=== PATIENT | male | born 1940 | race African-American/Black ===

== ENCOUNTER 2017-03-19 13:20 | Inpatient (IN) | payer OTHER ==
[2017-03-19 15:04] VITALS: BMI 25.9
--- NOTE | 2017-03-19 20:25 | HP ---
COWS - Scale Resting Pulse: 0= [place] 80 or Below Sweatin= Chills/Flushing Restless Observation: 3= Extraneous Movement Pupil Size: 0= Normal to Room Light Bone or Joint Aches: 2= Severe Diffuse Aches Runny Nose/ Eye Tearin= Runny Nose/Eyes GI Upset > 30mins: 2= Nausea/Diarrhea Tremor Observation: 2= Slight Tremor Visible Yawning Observation: 0= None Anxiety or Irritability: 2=Irritable/Anxious Goose Flesh Skin: 0=Smooth Skin COWS Score: 14 Admission [facility] Chief Complaint: WITHDRAWAL SX Allergies/Adverse Reactions: Allergies Allergy/AdvReac Type Severity Reaction Status Date / Time No Known Allergies Allergy Verified 03/19/17 19:17 History of Present Illness: 76 YEARS OLD MALE WITH 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 HAS HYPERTENSION AND NASAL CONGESTION DENIES MENTAL ILLNESS IS ADMITTED TO DETOX Exam Limitations: No Limitations - Ebola screening Have you traveled outside of the country in the last 21 days: No Have you had contact with anyone from an Ebola affected area: No Have you been sick,other than usual withdrawal symptoms: No Do you have a fever: No - Review of Systems Constitutional: Chills, Changes in sleep, Weight Stable EENT: reports: Nose Congestion Respiratory: reports: SOB with Exertion, Productive cough (WHITE) Cardiac: reports: No Symptoms Reported GI: reports: Nausea, Poor Fluid Intake, Abdominal cramping : reports: No Symptoms Reported Musculoskeletal: reports: Back Pain, Joint Pain, Muscle Pain, Neck Pain Integumentary: reports: No Symptoms Reported Neuro: reports: Tremors Endocrine: reports: No Symptoms Reported Hematology: reports: No Symptoms Reported Psychiatric: reports: Judgement Intact, Mood/Affect Appropiate, Orientated x3 Other Systems: Reviewed and Negative Patient History - Patient Medical History Hx Anemia: No Hx Asthma: No Hx Chronic Obstructive Pulmonary Disease (COPD): Yes Hx Cancer: No Hx Cardiac Disorders: No Hx Congestive Heart Failure: No Hx Hypertension: Yes Hx Hypercholesterolemia: No Hx Pacemaker: No HX Cerebrovascular Accident: No Hx Seizures: No Hx Dementia: No Hx Diabetes: No Hx Gastrointestinal Disorders: No Hx Liver Disease: No Hx Genitourinary Disorders: No Hx Sexually Transmitted Disorders: No Hx Renal Disease (ESRD): No Hx Thyroid Disease: No Hx Human Immunodeficiency Virus (HIV): No (NEGATIVE HX) Hx Hepatitis C: No Hx Depression: No Hx Suicide Attempt: No Hx Bipolar Disorder: No Hx Schizophrenia: No - Patient Surgical History Past Surgical History: Yes Hx Neurologic Surgery: No Hx Cataract Extraction: No Hx Cardiac Surgery: No Hx Lung Surgery: Yes (pneumothorax about 2004) Hx Breast Surgery: No Hx Breast Biopsy: No Hx Abdominal Surgery: No Hx Appendectomy: No Hx Cholecystectomy: No Hx Genitourinary Surgery: No Hx Orthopedic Surgery: No Anesthesia Reaction: No - PPD History Previous Implant?: Yes Documented Results: Positive w/o proof Implanted On Prior [facility] Admission?: No Results: positive PPD to be Administered?: No - Smoking Cessation Smoking history: Former smoker Have you smoked in the past 12 months: No Aproximately how many cigarettes per day: 0 Cigars Per Day: 0 Hx Chewing Tobacco Use: No Initiated information on smoking cessation: No - Substance & Tx. History Hx Alcohol Use: No Hx Substance Use: Yes Substance Use Type: Cocaine, Heroin, Marijuana Hx Substance Use Treatment: Yes (08/30-09/03/16 [facility]) - Substances Abused Heroin Route: Inhalation Frequency: Daily Amount used: 4 bags Age of first use: 20 Date of Last Use: 03/19/17 Family Disease History - Family Disease History Family Disease History: Diabetes: Son, Heart Disease: Father (), Mother () Admission Physical Exam S - Vital Signs Vital Signs: Vital Signs - 24 hr 03/19/17 14:54 Temperature 97.9 F Pulse Rate 75 Respiratory 18 Rate Blood Pressure 151/90 - Physical General Appearance: Yes: Nourished, Appropriately Dressed, Mild Distress, Tremorous, Irritable, Sweating, Anxious HEENTM: Yes: Hearing grossly Normal, Normal ENT Inspection, Normocephalic, Normal Voice Respiratory: Yes: Chest Non-Tender, No Respiratory Distress, No Accessory Muscle Use, Hyperresonant, Inspiration Neck: Yes: Supple, Trachea in good position Breast: Yes: Breasts Symetrical Cardiology: Yes: Regular Rhythm, Regular Rate, S1, S2 Abdominal: Yes: Non Tender, Soft Genitourinary: Yes: Within Normal Limits Back: Yes: Normal Inspection Musculoskeletal: Yes: full range of Motion, Gait Steady, Back pain, Muscle Pain Extremities: Yes: Normal Inspection, Normal Range of Motion, Non-Tender, Tremors Neurological: Yes: Fully Oriented, Alert, Motor Strength 5/5, Normal Mood/Affect , Normal Response Integumentary: Yes: Warm Lymphatic: Yes: Within Normal Limits - Diagnostic (1) Opioid dependence with withdrawal Current Visit: Yes Status: Acute (2) COPD (chronic obstructive pulmonary disease) with emphysema Current Visit: Yes Status: Chronic Qualifiers: Emphysema type: unspecified Qualified Code(s): J43.9 - Emphysema, unspecified (3) HTN (hypertension) Current Visit: Yes Status: Chronic Qualifiers: Hypertension type: essential hypertension (4) Cocaine dependence, uncomplicated Current Visit: Yes Status: Chronic (5) Cannabis dependence, uncomplicated Current Visit: Yes Status: Chronic (6) Nasal congestion Current Visit: Yes Status: Chronic (7) Positive PPD, treated Current Visit: Yes Status: Resolved Cleared for Admission [facility] - Detox or Rehab [facility] Level of Care: Medically Managed Detox Regimen/Protocol: Methadone [facility] Breath Alcohol Content Breath Alcohol Content: 0 Urine Drug Screen - Results Drug Screen Negative: No Urine Drug Screen Results: THC-Marijuana, PAT-Cocaine, OPI-Opiates
[2017-03-19] MEDS ORDERED: MAG HYDROX/AL HYDROX/SIMETH 30 ML UNIT-DOSE CUP PO PRN (20:31)
[2017-03-19] MEDS ORDERED: ACETAMINOPHEN 325 MG TABLET (FP) PO PRN (20:31)
[2017-03-19] MEDS ORDERED: METHADONE HCL 10 MG TABLET (FOR DETOX USE ONLY) PO ONE ×2 (20:31→23:00)
[2017-03-19] MEDS ORDERED: guaiFENesin/D-METHORPHAN HB 10 ML UNIT-DOSE CUPS PO PRN (20:31)
[2017-03-19] MEDS ORDERED: P-EPHED 60MG/TRIPROLIDI 2.5MG TABLET PO PRN (20:31)
[2017-03-19] MEDS ORDERED: MAGNESIUM HYDROX 2400MG/30ML ORAL SUSPENSION 30 ML CUP PO PRN (20:31)
[2017-03-19] MEDS ORDERED: MAGNESIUM CITRATE 300 ML BOTTLE PO PRN (20:31)
[2017-03-19] MEDS ORDERED: LOPERAMIDE HCL 2 MG CAPSULE PO PRN (20:31)
[2017-03-19] MEDS ORDERED: MENTHOL/PHENOL 1 EACH UD MM PRN (20:31)
[2017-03-19] MEDS ORDERED: ALBUTEROL SO4 6.7 GM HFA INHALER IH PRN (20:34)
[2017-03-19] MEDS: diazePAM 5 MG TABLET PO PRN (21:44)
[2017-03-19] MEDS: THIAMINE HCL 100 MG TABLET (FP) PO SCH (21:45)
[2017-03-20] MEDS: diphenhydrAMINE HCL 50 MG CAPSULE PO PRN ×2 (00:03→22:31)
[2017-03-20 00:12] LABS: URINE APPEARANCE CLEAR; URINE BILIRUBIN NEGATIVE (NEGATIVE); URINE BLOOD NEGATIVE (NEGATIVE); URINE COLOR YELLOW; URINE GLUCOSE (UA) NEGATIVE (NEGATIVE); URINE KETONE TRACE (NEGATIVE); URINE LEUK ESTERASE NEGATIVE (NEGATIVE); URINE NITRITE NEGATIVE (NEGATIVE); URINE PROTEIN NEGATIVE (NEGATIVE); URINE UROBILINOGEN NEGATIVE E.U./dl (0.2-1.0)
[2017-03-20] MEDS: SODIUM CHLORIDE NASAL SPRAY 44 ML BOTTLE NS SCH ×3 (05:50→22:28)
--- NOTE | 2017-03-20 09:59 | EKG ---
Test Reason : Blood Pressure : / mmHG Vent. Rate : 063 BPM Atrial Rate : 063 BPM P-R Int : 178 ms QRS Dur : 084 ms QT Int : 366 ms P-R-T Axes : 079 070 061 degrees QTc Int : 374 ms NORMAL SINUS RHYTHM RIGHT ATRIAL ENLARGEMENT EARLY REPOLARIZATION NO PREVIOUS ECGS AVAILABLE Confirmed by MARTHA SANDOVAL MD ([id number]) on 03/20/2017 9:58:58 AM Referred By: Confirmed By:MARTHA SANDOVAL MD
[2017-03-20] MEDS ORDERED: METHADONE HCL 10 MG TABLET (FOR DETOX USE ONLY) PO ONE (10:00)
[2017-03-20 10:12] LABS: MCH 33.7 pg (25.7-33.7); MCHC 33.4 g/dl (32.0-35.9); MEAN CELL VOLUME 100.7 fl (80-96); MEAN PLT VOLUME 9.5 fl (7.5-11.1); PLATELET COUNT 208 K/MM3 (134-434); RDW 13.3 % (11.9-15.9); WHITE BLOOD COUNT 3.9 K/mm3 (4.0-10.0)
--- NOTE | 2017-03-20 10:31 | PN ---
BHS COWS - Scale Resting Pulse: 0= [place] 80 or Below Sweatin=Flushed/Facial Moisture Restless Observation: 1= Difficult to Sit Still Pupil Size: 0= Normal to Room Light Bone or Joint Aches: 1= Mild Discomfort Runny Nose/ Eye Tearin= Runny Nose/Eyes GI Upset > 30mins: 2= Nausea/Diarrhea Tremor Observation of Outstretched Hands: 2= Slight Tremor Visible Yawning Observation: 1= 1-2x During Session Anxiety or Irritability: 2=Irritable/Anxious Goose Flesh Skin: 0=Smooth Skin COWS Score: 13 BHS Progress Note (SOAP) Subjective: Anxiety,tremors,sweating,interrupted sleep,restless Objective: 03/20/17 10:30 Vital Signs - 8 hr 03/20/17 03/20/17 03/20/17 03:30 06:15 10:00 Temperature 97.7 F 97.0 F L Pulse Rate 56 L 61 Respiratory 18 18 16 Rate Blood Pressure 128/74 146/69 Laboratory Last Values WBC 3.9 K/mm3 (4.0-10.0) L 03/20/17 06:10 RBC 4.14 M/mm3 (4.00-5.60) 03/20/17 06:10 Hgb 13.9 GM/dL (11.7-16.9) 03/20/17 06:10 Hct 41.6 % (35.4-49) 03/20/17 06:10 MCV 100.7 fl (80-96) H 03/20/17 06:10 MCHC 33.4 g/dl (32.0-35.9) 03/20/17 06:10 RDW 13.3 % (11.9-15.9) 03/20/17 06:10 Plt Count 208 K/MM3 (134-434) 03/20/17 06:10 MPV 9.5 fl (7.5-11.1) 03/20/17 06:10 Urine Color Yellow 03/19/17 21:28 Urine Appearance Clear 03/19/17 21:28 Urine pH 5.0 (5.0-8.0) 03/19/17 21:28 Urine Protein Negative (NEGATIVE) 03/19/17 21:28 Urine Glucose (UA) Negative (NEGATIVE) 03/19/17 21:28 Urine Ketones Trace (NEGATIVE) H 03/19/17 21:28 Urine Blood Negative (NEGATIVE) 03/19/17 21:28 Urine Nitrite Negative (NEGATIVE) 03/19/17 21:28 Urine Bilirubin Negative (NEGATIVE) 03/19/17 21:28 Urine Urobilinogen Negative E.U./dl (0.2-1.0) 03/19/17 21:28 Ur Leukocyte Esterase Negative (NEGATIVE) 03/19/17 21:28 labs noted Assessment: 03/20/17 10:31 Withdrawal sx. Plan: Continue detox
[2017-03-20] MEDS: ASPIRIN 81 MG CHEWABLE TABLETS PO SCH (10:41)
[2017-03-20] MEDS: ENALAPRIL MALEATE 10 MG TABLET (FP) PO SCH (10:41)
[2017-03-20] MEDS: PRENATAL VITAMINS W/ FOLIC ACID TABLET (FP) PO SCH (10:41)
[2017-03-20] MEDS: NIFEdipine E.R 60 MG TABLET (UD) PO SCH (10:42)
[2017-03-20] MEDS: diazePAM 5 MG TABLET PO PRN (10:45)
[2017-03-20 10:46] LABS: ALBUMIN 4.1 g/dl (3.4-5.0); ANION GAP 9 (8-16); CALCIUM 9.3 mg/dL (8.5-10.1); CO2 29 mmol/L (21-32); GLUCOSE,RANDOM 99 mg/dL (74-106)
[2017-03-20 10:50] LABS: ALK PHOS 91 U/L (45-117); BILIRUBIN,TOTAL 0.8 mg/dL (0.2-1.0); CREATININE 1.1 mg/dL (0.7-1.3); SGOT/AST 30 U/L (15-37); SGPT/ALT 27 U/L (12-78); TOT PROT 7.5 g/dl (6.4-8.2)
[2017-03-20] MEDS: THIAMINE HCL 100 MG TABLET (FP) PO SCH (22:29)
[2017-03-21] MEDS ORDERED: METHADONE HCL 5 MG TABLET (FOR DETOX USE ONLY) PO ONE (10:00)
[2017-03-21] MEDS: ASPIRIN 81 MG CHEWABLE TABLETS PO SCH (10:17)
[2017-03-21] MEDS: NIFEdipine E.R 60 MG TABLET (UD) PO SCH (10:17)
[2017-03-21] MEDS: PRENATAL VITAMINS W/ FOLIC ACID TABLET (FP) PO SCH (10:17)
[2017-03-21] MEDS: ENALAPRIL MALEATE 10 MG TABLET (FP) PO SCH (10:17)
--- NOTE | 2017-03-21 11:57 | PN ---
S COWS - Scale Resting Pulse: 0= [place] 80 or Below Sweatin= Chills/Flushing Restless Observation: 1= Difficult to Sit Still Pupil Size: 0= Normal to Room Light Bone or Joint Aches: 1= Mild Discomfort Runny Nose/ Eye Tearin= Runny Nose/Eyes GI Upset > 30mins: 1= Stomach Cramp Tremor Observation of Outstretched Hands: 2= Slight Tremor Visible Yawning Observation: 1= 1-2x During Session Anxiety or Irritability: 2=Irritable/Anxious Goose Flesh Skin: 0=Smooth Skin COWS Score: 11 S Progress Note (SOAP) Subjective: Nasal congestion, running nose, anxiety, mild tremor sweating body aches. Objective: 03/21/17 11:57 Vital Signs 03/21/17 03/21/17 06:37 10:00 Temperature 97.0 F L 97.5 F L Pulse Rate 55 L 71 Respiratory 18 16 Rate Blood Pressure 128/67 150/70 Laboratory Results - last 24 hr 03/20/17 06:10 RPR Titer Nonreactive Laboratory Last Values WBC 3.9 K/mm3 (4.0-10.0) L 03/20/17 06:10 RBC 4.14 M/mm3 (4.00-5.60) 03/20/17 06:10 Hgb 13.9 GM/dL (11.7-16.9) 03/20/17 06:10 Hct 41.6 % (35.4-49) 03/20/17 06:10 MCV 100.7 fl (80-96) H 03/20/17 06:10 MCHC 33.4 g/dl (32.0-35.9) 03/20/17 06:10 RDW 13.3 % (11.9-15.9) 03/20/17 06:10 Plt Count 208 K/MM3 (134-434) 03/20/17 06:10 MPV 9.5 fl (7.5-11.1) 03/20/17 06:10 Sodium 139 mmol/L (136-145) 03/20/17 06:10 Potassium 4.5 mmol/L (3.5-5.1) 03/20/17 06:10 Chloride 101 mmol/L (98-107) 03/20/17 06:10 Carbon Dioxide 29 mmol/L (21-32) 03/20/17 06:10 Anion Gap 9 (8-16) 03/20/17 06:10 BUN 26 mg/dL (7-18) H 03/20/17 06:10 Creatinine 1.1 mg/dL (0.7-1.3) 03/20/17 06:10 Creat Clearance w eGFR > 60 (>60) 03/20/17 06:10 Random Glucose 99 mg/dL (74-106) 03/20/17 06:10 Calcium 9.3 mg/dL (8.5-10.1) 03/20/17 06:10 Total Bilirubin 0.8 mg/dL (0.2-1.0) D 03/20/17 06:10 AST 30 U/L (15-37) D 03/20/17 06:10 ALT 27 U/L (12-78) D 03/20/17 06:10 Alkaline Phosphatase 91 U/L (45-117) 03/20/17 06:10 Total Protein 7.5 g/dl (6.4-8.2) 03/20/17 06:10 Albumin 4.1 g/dl (3.4-5.0) 03/20/17 06:10 Urine Color Yellow 03/19/17 21:28 Urine Appearance Clear 03/19/17 21:28 Urine pH 5.0 (5.0-8.0) 03/19/17 21:28 Ur Specific [place] > 1.030 (1.005-1.025) H 03/19/17 21:28 Urine Protein Negative (NEGATIVE) 03/19/17 21:28 Urine Glucose (UA) Negative (NEGATIVE) 03/19/17 21:28 Urine Ketones Trace (NEGATIVE) H 03/19/17 21:28 Urine Blood Negative (NEGATIVE) 03/19/17 21:28 Urine Nitrite Negative (NEGATIVE) 03/19/17 21:28 Urine Bilirubin Negative (NEGATIVE) 03/19/17 21:28 Urine Urobilinogen Negative E.U./dl (0.2-1.0) 03/19/17 21:28 Ur Leukocyte Esterase Negative (NEGATIVE) 03/19/17 21:28 RPR Titer Nonreactive (NONREACTIVE) 03/20/17 06:10 labs noted Assessment: 03/21/17 11:58 Withdrawal sx Plan: Continue detox
[2017-03-21] MEDS: SODIUM CHLORIDE NASAL SPRAY 44 ML BOTTLE NS SCH ×2 (14:05→22:47)
[2017-03-21] MEDS: diphenhydrAMINE HCL 50 MG CAPSULE PO PRN (22:48)
[2017-03-21] MEDS: diazePAM 5 MG TABLET PO PRN (22:48)
[2017-03-21] MEDS: THIAMINE HCL 100 MG TABLET (FP) PO SCH (22:48)
[2017-03-22] MEDS: SODIUM CHLORIDE NASAL SPRAY 44 ML BOTTLE NS SCH ×3 (06:47→22:12)
[2017-03-22] MEDS ORDERED: METHADONE HCL 5 MG TABLET (FOR DETOX USE ONLY) PO ONE (10:00)
--- NOTE | 2017-03-22 10:27 | PN ---
BHS Progress Note (SOAP) Subjective: ALERT,IRRITABLE,ANXIOUS,INTERRUPTED SLEEP,TREMOR Objective: 03/22/17 10:27 Vital Signs Temperature 96.4 F L 03/22/17 06:00 Pulse Rate 56 L 03/22/17 06:00 Respiratory Rate 18 03/22/17 06:00 Blood Pressure 135/67 03/22/17 06:00 O2 Sat by Pulse Oximetry (%) Assessment: 03/22/17 10:27 WITHDRAWAL SYMPTOM Plan: CONTINUE DETOX
[2017-03-22] MEDS: NIFEdipine E.R 60 MG TABLET (UD) PO SCH (11:00)
[2017-03-22] MEDS: ENALAPRIL MALEATE 10 MG TABLET (FP) PO SCH (11:00)
[2017-03-22] MEDS: ASPIRIN 81 MG CHEWABLE TABLETS PO SCH (11:01)
[2017-03-22] MEDS: PRENATAL VITAMINS W/ FOLIC ACID TABLET (FP) PO SCH (11:01)
[2017-03-22] MEDS: diphenhydrAMINE HCL 50 MG CAPSULE PO PRN (22:11)
[2017-03-22] MEDS: THIAMINE HCL 100 MG TABLET (FP) PO SCH (22:11)
[2017-03-23] MEDS: SODIUM CHLORIDE NASAL SPRAY 44 ML BOTTLE NS SCH ×4 (05:30→22:22)
[2017-03-23] MEDS ORDERED: METHADONE HCL 10 MG TABLET (FOR DETOX USE ONLY) PO ONE (10:00)
[2017-03-23] MEDS: ENALAPRIL MALEATE 10 MG TABLET (FP) PO SCH (10:12)
[2017-03-23] MEDS: ASPIRIN 81 MG CHEWABLE TABLETS PO SCH (10:12)
[2017-03-23] MEDS: PRENATAL VITAMINS W/ FOLIC ACID TABLET (FP) PO SCH (10:13)
[2017-03-23] MEDS: NIFEdipine E.R 60 MG TABLET (UD) PO SCH (10:13)
--- NOTE | 2017-03-23 11:09 | PN ---
S Progress Note (SOAP) Subjective: ALERT,IRRITABLE,ANXIOUS,INTERRUPTED SLEEP Objective: 03/23/17 11:08 Vital Signs Temperature 97 F L 03/23/17 09:32 Pulse Rate 67 03/23/17 09:32 Respiratory Rate 16 03/23/17 09:32 Blood Pressure 145/71 03/23/17 09:32 O2 Sat by Pulse Oximetry (%) Assessment: 03/23/17 11:09 WITHDRAWAL SYMPTOM Plan: CONTINUE DETOX,DISCHARGE IN AM
[2017-03-23] MEDS: THIAMINE HCL 100 MG TABLET (FP) PO SCH (22:23)
[2017-03-23] MEDS: diphenhydrAMINE HCL 50 MG CAPSULE PO PRN (22:23)
[2017-03-24] MEDS ORDERED: METHADONE HCL 5 MG TABLET (FOR DETOX USE ONLY) PO ONE (06:00)
[2017-03-24] MEDS: SODIUM CHLORIDE NASAL SPRAY 44 ML BOTTLE NS SCH (06:02)
[2017-03-24 06:08] VITALS: TEMP 97.9
--- NOTE | 2017-03-24 08:05 | PN ---
BHS Progress Note (SOAP) Subjective: ALERT.NO COMPLAINT Objective: 03/24/17 08:03 Vital Signs Temperature 97.9 F 03/24/17 06:07 Pulse Rate 70 03/24/17 06:07 Respiratory Rate 18 03/24/17 06:07 Blood Pressure 141/70 03/24/17 06:07 O2 Sat by Pulse Oximetry (%) Assessment: 03/24/17 08:04 DETOX COMPLETED,NO WITHDRAWAL SYMPTOM Plan: DISCHARGE TODAY,FOLLOW UP WITH AFTER CARE PROGRAM ARRANGEMENT
--- NOTE | 2017-03-24 08:07 | DS ---
[facility] Detox Discharge Summary Admission Date: 03/19/17 Discharge Date: 03/24/17 - History Present History: Cannabis Dependence, Cocaine Dependence, Opioid Dependence Additional Comments: FOLLOW UP WITH AFTER CARE PROGRAM ARRANGEMENT AND PMD FOR MEDICAL PROBLEM Pertinent Past History: COPD HYPERTENSION - Physical Exam Results Vital Signs: Vital Signs Temperature 97.9 F 03/24/17 06:07 Pulse Rate 70 03/24/17 06:07 Respiratory Rate 18 03/24/17 06:07 Blood Pressure 141/70 03/24/17 06:07 O2 Sat by Pulse Oximetry (%) Pertinent Admission Physical Exam Findings: WITHDRAWAL SYMPTOM - Treatment Hospital Course: Detox Protocol Followed, Detoxed Safely, Responded well, Discharged Condition Good Patient has Accepted a Rehab Referral to: [facility] - Medication Discharge Medications: Ambulatory Orders Enalapril Maleate [Vasotec] 20 mg PO DAILY #30 tablet 09/18/14 Nifedipine ER [Procardia XL -] 60 mg PO DAILY #60 tab.[id number] 09/18/14 Albuterol Sulfate [Proair Hfa -] 2 inh PO QID PRN 11/20/15 Aspirin [ASA -] 81 mg PO DAILY 11/20/15 Sodium Chloride [Saline Nose [place]] 89 ml NS TID PRN 01/11/16 Petrolatum,White/Lanolin [Vitamin A & D Ointment] 113 gm TP BID 08/25/16 - AMA Did Patient Leave Against Medical Advice: No
[2017-03-24] MEDS: ASPIRIN 81 MG CHEWABLE TABLETS PO SCH (09:15)
[2017-03-24] MEDS: PRENATAL VITAMINS W/ FOLIC ACID TABLET (FP) PO SCH (09:15)
[2017-03-24] MEDS: NIFEdipine E.R 60 MG TABLET (UD) PO SCH (09:16)
[2017-03-24] MEDS: ENALAPRIL MALEATE 10 MG TABLET (FP) PO SCH (09:16)
[2017-03-24 09:41] VITALS: BP 150/71; PULSE 67
== END 2017-03-24 09:20 | disposition home or self-care (01) | DRG 897 ==
LOC: YASAS 13:20 → Y6N 19:29
PROVIDERS: ADMIT Internal Medicine; ATTEND Internal Medicine
PROC: HZ2ZZZZ Detoxification Services for Substance Abuse Treatment (ICD-10-PCS; principal; 2017-03-19)
DX: F11.23 Opioid dependence with withdrawal (principal); F14.20 Cocaine dependence, uncomplicated; F12.20 Cannabis dependence, uncomplicated; I10 Essential (primary) hypertension; J44.9 Chronic obstructive pulmonary disease, unspecified; R76.11 Nonspecific reaction to tuberculin skin test without active tuberculosis; R09.81 Nasal congestion; Z79.82 Long term (current) use of aspirin
CPT/HCPCS: 36415; 80053; 81003; 85027; 86593; 93005; 93010

== ENCOUNTER 2017-06-24 12:37 | Inpatient (IN) | payer OTHER ==
[2017-06-24 15:36] VITALS: BMI 25.1
[2017-06-24] MEDS ORDERED: MAG HYDROX/AL HYDROX/SIMETH 30 ML UNIT-DOSE CUP PO PRN (17:41)
[2017-06-24] MEDS ORDERED: LOPERAMIDE HCL 2 MG CAPSULE PO PRN (17:41)
[2017-06-24] MEDS ORDERED: MAGNESIUM CITRATE 300 ML BOTTLE PO PRN (17:41)
[2017-06-24] MEDS ORDERED: MAGNESIUM HYDROX 2400MG/30ML ORAL SUSPENSION 30 ML CUP PO PRN (17:41)
[2017-06-24] MEDS ORDERED: guaiFENesin/D-METHORPHAN HB 10 ML UNIT-DOSE CUPS PO PRN (17:41)
[2017-06-24] MEDS ORDERED: P-EPHED 60MG/TRIPROLIDI 2.5MG TABLET PO PRN (17:41)
[2017-06-24] MEDS ORDERED: NICOTINE POLACRILEX 2 MG GUM BC PRN (17:41)
[2017-06-24] MEDS ORDERED: hydrOXYzine PAMOATE 50 MG CAPSULE (FP) PO PRN (17:41)
[2017-06-24] MEDS ORDERED: ACETAMINOPHEN 325 MG TABLET (FP) PO PRN (17:41)
[2017-06-24] MEDS ORDERED: MENTHOL/PHENOL 1 EACH UD MM PRN (17:41)
--- NOTE | 2017-06-24 17:41 | HP ---
COWS - Scale Resting Pulse: 1= [place] 81-100 Sweatin= Chills/Flushing Restless Observation: 1= Difficult to Sit Still Pupil Size: 1= Pupils >than Normal Bone or Joint Aches: 1= Mild Discomfort Runny Nose/ Eye Tearin= Nasal Congestion GI Upset > 30mins: 2= Nausea/Diarrhea Tremor Observation: 2= Slight Tremor Visible Yawning Observation: 1= 1-2x During Session Anxiety or Irritability: 2=Irritable/Anxious Goose Flesh Skin: 3=Piloerection COWS Score: 16 Admission [facility] Chief Complaint: heroin withdrawal sx Allergies/Adverse Reactions: Allergies Allergy/AdvReac Type Severity Reaction Status Date / Time No Known Allergies Allergy Verified 03/19/17 19:17 History of Present Illness: 76 yo m with h/o polysubstance use now only using heroin sniffing 3-4 bags daily only , smokes 1PPD PMHX HTN, on meds, no psychiatric no suicide attempts, no suicidal ideation, no sieuzrs, no DTS. feels like lishermaning that is why he is here today. has heorin withdrwal sx when he does not use, not homeless. Exam Limitations: No Limitations - Ebola screening Have you traveled outside of the country in the last 21 days: No Have you had contact with anyone from an Ebola affected area: No Have you been sick,other than usual withdrawal symptoms: No Do you have a fever: No - Review of Systems Constitutional: Chills, Diaphoresis, Loss of Appetite, Malaise, Unintentional Wgt. Loss EENT: reports: Nose Congestion Respiratory: reports: No Symptoms reported Cardiac: reports: No Symptoms Reported GI: reports: Diarrhea, Nausea, Poor Appetite, Poor Fluid Intake, Abdominal cramping : reports: No Symptoms Reported Musculoskeletal: reports: Back Pain (wwithdrawal sx), Joint Pain, Muscle Pain Integumentary: reports: Sweating Neuro: reports: No Symptoms reported Endocrine: reports: No Symptoms Reported Hematology: reports: No Symptoms Reported Psychiatric: reports: Judgement Intact, Mood/Affect Appropiate, Orientated x3, Anxious, Depressed Other Systems: Reviewed and Negative Patient History - Patient Medical History Hx Anemia: No Hx Asthma: No Hx Chronic Obstructive Pulmonary Disease (COPD): Yes Hx Cancer: No Hx Cardiac Disorders: No Hx Congestive Heart Failure: No Hx Hypertension: Yes Hx Hypercholesterolemia: No Hx Pacemaker: No HX Cerebrovascular Accident: No Hx Seizures: No Hx Dementia: No Hx Diabetes: No Hx Gastrointestinal Disorders: No Hx Liver Disease: No Hx Genitourinary Disorders: No Hx Sexually Transmitted Disorders: No Hx Renal Disease (ESRD): No Hx Thyroid Disease: No Hx Human Immunodeficiency Virus (HIV): No (NEGATIVE HX) Hx Hepatitis C: No Hx Depression: Yes Hx Suicide Attempt: No Hx Bipolar Disorder: No Hx Schizophrenia: No - Patient Surgical History Past Surgical History: Yes Hx Neurologic Surgery: No Hx Cataract Extraction: No Hx Cardiac Surgery: No Hx Lung Surgery: Yes (pneumothorax about 2004) Hx Breast Surgery: No Hx Breast Biopsy: No Hx Abdominal Surgery: No Hx Appendectomy: No Hx Cholecystectomy: No Hx Genitourinary Surgery: No Hx Section: No Hx Orthopedic Surgery: No Hx Hysterectomy: No Anesthesia Reaction: No - PPD History Previous Implant?: Yes Documented Results: Positive w/proof Results: positive PPD to be Administered?: No - Reproductive History Patient is a Female of Child Bearing Age (11 -55 yrs old): No Patient : No - Smoking Cessation Smoking history: Current every day smoker Have you smoked in the past 12 months: Yes Aproximately how many cigarettes per day: 4 Cigars Per Day: 0 Hx Chewing Tobacco Use: No Initiated information on smoking cessation: Yes 'Breaking Loose' booklet given: 06/24/17 - Substance & Tx. History Hx Substance Use: Yes Substance Use Type: Heroin Hx Substance Use Treatment: Yes ([facility] 6 months ago) - Substances Abused Heroin Route: Inhalation Frequency: Daily Amount used: 4 BAGS Age of first use: 20 Date of Last Use: 06/24/17 Family Disease History - Family Disease History Family Disease History: Diabetes: Son, Heart Disease: Father (), Mother () Admission Physical Exam BHS - Vital Signs Vital Signs: Vital Signs - 24 hr 06/24/17 15:34 Temperature 98 F Pulse Rate 96 H Respiratory 20 Rate Blood Pressure 165/81 - Physical General Appearance: Yes: Nourished, Appropriately Dressed, Disheveled, Mild Distress, Thin, Tremorous, Irritable, Sweating, Anxious HEENTM: Yes: EOMI, Hearing grossly Normal, Normal ENT Inspection, Normocephalic , Normal Voice, SARAH BETH, Pharynx Normal, Nasal Congestion, Rhinorrhea Respiratory: Yes: Within Normal Limits, Chest Non-Tender, Lungs Clear, Normal Breath Sounds, No Respiratory Distress, No Accessory Muscle Use Neck: Yes: Within Normal Limits, No masses,lesions,Nodules, Supple, Trachea in good position Breast: Yes: Breast Exam Deferred Cardiology: Yes: Within Normal Limits, Regular Rhythm, Regular Rate, S1, S2 Abdominal: Yes: Within Normal Limits, Normal Bowel Sounds, Non Tender, Flat, Soft Genitourinary: Yes: Within Normal Limits Back: Yes: Within Normal Limits, Normal Inspection Musculoskeletal: Yes: full range of Motion, Gait Steady, Pelvis Stable, Back pain Extremities: Yes: Normal Capillary Refill, Normal Inspection, Normal Range of Motion, Non-Tender, Tremors Neurological: Yes: assembler bonding II-XII NML intact, Fully Oriented, Alert, Motor Strength 5/5, Normal Response, Depressed Affect Integumentary: Yes: Normal Color, Warm, Diaphoresis, Moist Lymphatic: Yes: Within Normal Limits - Addiitonal Findings: withdrawal sx - Diagnostic (1) Opioid dependence with withdrawal Current Visit: Yes Status: Chronic (2) COPD (chronic obstructive pulmonary disease) with emphysema Current Visit: Yes Status: Chronic Qualifiers: Emphysema type: unspecified Qualified Code(s): J43.9 - Emphysema, unspecified (3) HTN (hypertension) Current Visit: Yes Status: Chronic Qualifiers: Hypertension type: essential hypertension (4) Nicotine dependence Current Visit: Yes Status: Chronic Qualifiers: Nicotine product type: cigarettes Substance use status: uncomplicated Qualified Code(s): F17.210 - Nicotine dependence, cigarettes, uncomplicated (5) Drug-induced mood disorder Current Visit: Yes Status: Acute Cleared for Admission [facility] - Detox or Rehab [facility] Level of Care: Medically Managed Detox Regimen/Protocol: Methadone [facility] Breath Alcohol Content Breath Alcohol Content: 0 Urine Drug Screen - Results Drug Screen Negative: No Urine Drug Screen Results: OPI-Opiates, MTD-Methadone
[2017-06-24] MEDS ORDERED: METHADONE HCL 10 MG TABLET (FOR DETOX USE ONLY) PO ONE ×2 (18:15→23:00)
[2017-06-24] MEDS: diazePAM 5 MG TABLET PO PRN (19:47)
[2017-06-24] MEDS: THIAMINE HCL 100 MG TABLET (FP) PO SCH (22:23)
[2017-06-24] MEDS: NICOTINE 14 MG/24 HOURS TOPICAL PATCH TD SCH (22:23)
[2017-06-24] MEDS: diphenhydrAMINE HCL 50 MG CAPSULE PO PRN (22:25)
[2017-06-24] MEDS: VITAMINS A AND D TOPICAL OINTMENT 60 GM TUBE TP SCH (22:48)
[2017-06-24 23:36] LABS: URINE APPEARANCE CLEAR; URINE BILIRUBIN NEGATIVE (NEGATIVE); URINE BLOOD NEGATIVE (NEGATIVE); URINE COLOR YELLOW; URINE GLUCOSE (UA) NEGATIVE (NEGATIVE); URINE KETONE NEGATIVE (NEGATIVE); URINE LEUK ESTERASE NEGATIVE (NEGATIVE); URINE NITRITE NEGATIVE (NEGATIVE); URINE PROTEIN NEGATIVE (NEGATIVE); URINE UROBILINOGEN NEGATIVE mg/dL (0.2-1.0)
--- NOTE | 2017-06-25 09:22 | EKG ---
Test Reason : Blood Pressure : / mmHG Vent. Rate : 064 BPM Atrial Rate : 064 BPM P-R Int : 168 ms QRS Dur : 084 ms QT Int : 374 ms P-R-T Axes : 068 079 061 degrees QTc Int : 385 ms NORMAL SINUS RHYTHM POSSIBLE LEFT ATRIAL ENLARGEMENT WHEN COMPARED WITH ECG OF 19-MAR-2017 20:15, NO SIGNIFICANT CHANGE WAS FOUND Confirmed by MARTHA SANDOVAL MD ([id number]) on 06/25/2017 9:22:03 AM Referred By: Confirmed By:MARTHA SANDOVAL MD
--- NOTE | 2017-06-25 09:39 | CONSULT ---
[facility] Psychiatric Consult - Data Date of interview: 06/25/17 Admission source: [facility] Identifying data: Mr Dennison is a 76 years old Black male, father of 2 children, Unemployed on SSI, domiciled living in a [facility] detox treatment for heroin Substance Abuse History: Reports history of heroin use. He started using heroin at age 20, consumes 4 bags daily. Last used on 06/24/17 Medical History: Significant for COPD, HTN, +PPD and history of Pneumothorax in 2004. Smokes cigarettes 4 a day. Psychiatric History: Denies history of previous psychiatric treatment Physical/Sexual Abuse/Trauma History: Denies history of verbal, physical or sexual abuse as well as DV relationship Additional Comment: Denies criminal history Mental Status Exam - Mental Status Exam Alert and Oriented to: Time, Place, Person Cognitive Function: Fair Patient Appearance: Well Groomed Mood: Hopeful, Euthymic Affect: Appropriate Patient Behavior: Cooperative Speech Pattern: Clear Voice Loudness: Normal Thought Process: Intact, Goal Oriented Thought Disorder: Not Present Hallucinations: Denies Suicidal Ideation: Denies Homicidal Ideation: Denies Insight/Judgement: Poor Sleep: Fair Appetite: Good Muscle strength/Tone: Normal Gait/Station: Normal Psychiatric Findings - Problem List ([place] 1, 2,3) (1) Opioid dependence with withdrawal Current Visit: Yes Status: Chronic (2) Nicotine dependence Current Visit: Yes Status: Chronic Qualifiers: Nicotine product type: cigarettes Substance use status: uncomplicated Qualified Code(s): F17.210 - Nicotine dependence, cigarettes, uncomplicated (3) COPD (chronic obstructive pulmonary disease) with emphysema Current Visit: Yes Status: Chronic Qualifiers: Emphysema type: unspecified Qualified Code(s): J43.9 - Emphysema, unspecified (4) HTN (hypertension) Current Visit: Yes Status: Chronic Qualifiers: Hypertension type: essential hypertension (5) PPD positive Current Visit: Yes Status: Acute - Initial Treatment Plan Initial Treatment Plan: Continue inpatient detoxification
[2017-06-25] MEDS ORDERED: METHADONE HCL 10 MG TABLET (FOR DETOX USE ONLY) PO ONE (10:00)
[2017-06-25 10:27] LABS: MCH 33.1 pg (25.7-33.7); MCHC 33.6 g/dl (32.0-35.9); MEAN CELL VOLUME 98.5 fl (80-96); MEAN PLT VOLUME 8.4 fl (7.5-11.1); PLATELET COUNT 268 K/MM3 (134-434); RDW 13.9 % (11.9-15.9); WHITE BLOOD COUNT 4.7 K/mm3 (4.0-10.0)
[2017-06-25] MEDS: diazePAM 5 MG TABLET PO PRN ×2 (10:32→22:17)
[2017-06-25] MEDS: PRENATAL VITAMINS W/ FOLIC ACID TABLET (FP) PO SCH (10:32)
[2017-06-25] MEDS: SODIUM CHLORIDE NASAL SPRAY 44 ML BOTTLE NS PRN ×2 (10:32→22:18)
[2017-06-25] MEDS: NIFEdipine E.R 60 MG TABLET (UD) PO SCH (10:32)
[2017-06-25] MEDS: VITAMINS A AND D TOPICAL OINTMENT 60 GM TUBE TP SCH ×2 (10:32→22:17)
[2017-06-25] MEDS: ALBUTEROL SO4 18 GM HFA INHALER IH PRN (10:33)
[2017-06-25] MEDS: ASPIRIN 81 MG CHEWABLE TABLETS PO SCH (10:35)
[2017-06-25] MEDS: NICOTINE 14 MG/24 HOURS TOPICAL PATCH TD SCH (10:35)
[2017-06-25] MEDS: ENALAPRIL MALEATE 10 MG TABLET (FP) PO SCH (10:35)
[2017-06-25 11:13] LABS: ALBUMIN 3.1 g/dl (3.4-5.0); ALK PHOS 106 U/L (45-117); ANION GAP 7 (8-16); BILIRUBIN,TOTAL 0.7 mg/dL (0.2-1.0); CALCIUM 8.6 mg/dL (8.5-10.1); CO2 27 mmol/L (21-32); GLUCOSE,RANDOM 86 mg/dL (74-106); SGOT/AST 16 U/L (15-37); SGPT/ALT 20 U/L (12-78); TOT PROT 6.1 g/dl (6.4-8.2)
--- NOTE | 2017-06-25 12:52 | PN ---
BHS COWS - Scale Resting Pulse: 2= [place] 101-120 Sweatin= Chills/Flushing Restless Observation: 3= Extraneous Movement Pupil Size: 0= Normal to Room Light Bone or Joint Aches: 4=Acute Joint/Muscle Pain Runny Nose/ Eye Tearin= Nasal Congestion GI Upset > 30mins: 1= Stomach Cramp Tremor Observation of Outstretched Hands: 1= Tremor [place], Not Seen Yawning Observation: 1= 1-2x During Session Anxiety or Irritability: 2=Irritable/Anxious Goose Flesh Skin: 0=Smooth Skin COWS Score: 16 BHS Progress Note (SOAP) Subjective: ANXIETY,SWEATS/CHILLS,INTERMITTENT SLEEP Objective: 06/25/17 12:51 Vital Signs Temperature 96.8 F L 06/25/17 10:32 Pulse Rate 111 H 06/25/17 10:32 Respiratory Rate 78 H 06/25/17 10:32 Blood Pressure 149/79 06/25/17 10:32 O2 Sat by Pulse Oximetry (%) Laboratory Last Values WBC 4.7 K/mm3 (4.0-10.0) 06/25/17 07:40 RBC 3.64 M/mm3 (4.00-5.60) L 06/25/17 07:40 Hgb 12.0 GM/dL (11.7-16.9) D 06/25/17 07:40 Hct 35.8 % (35.4-49) 06/25/17 07:40 MCV 98.5 fl (80-96) H 06/25/17 07:40 MCH 33.1 pg (25.7-33.7) 06/25/17 07:40 MCHC 33.6 g/dl (32.0-35.9) 06/25/17 07:40 RDW 13.9 % (11.9-15.9) 06/25/17 07:40 Plt Count 268 K/MM3 (134-434) D 06/25/17 07:40 MPV 8.4 fl (7.5-11.1) D 06/25/17 07:40 Sodium 141 mmol/L (136-145) 06/25/17 07:40 Potassium 4.5 mmol/L (3.5-5.1) 06/25/17 07:40 Chloride 107 mmol/L (98-107) 06/25/17 07:40 Carbon Dioxide 27 mmol/L (21-32) 06/25/17 07:40 Anion Gap 7 (8-16) L 06/25/17 07:40 BUN 29 mg/dL (7-18) H 06/25/17 07:40 Creatinine 1.0 mg/dL (0.7-1.3) 06/25/17 07:40 Creat Clearance w eGFR > 60 (>60) 06/25/17 07:40 Random Glucose 86 mg/dL (74-106) 06/25/17 07:40 Calcium 8.6 mg/dL (8.5-10.1) 06/25/17 07:40 Total Bilirubin 0.7 mg/dL (0.2-1.0) 06/25/17 07:40 AST 16 U/L (15-37) D 06/25/17 07:40 ALT 20 U/L (12-78) D 06/25/17 07:40 Alkaline Phosphatase 106 U/L (45-117) 06/25/17 07:40 Total Protein 6.1 g/dl (6.4-8.2) L 06/25/17 07:40 Albumin 3.1 g/dl (3.4-5.0) L D 06/25/17 07:40 Urine Color Yellow 06/24/17 15:44 Urine Appearance Clear 06/24/17 15:44 Urine pH 5.0 (5.0-8.0) 06/24/17 15:44 Ur Specific [place] 1.025 (1.005-1.025) 06/24/17 15:44 Urine Protein Negative (NEGATIVE) 06/24/17 15:44 Urine Glucose (UA) Negative (NEGATIVE) 06/24/17 15:44 Urine Ketones Negative (NEGATIVE) 06/24/17 15:44 Urine Blood Negative (NEGATIVE) 06/24/17 15:44 Urine Nitrite Negative (NEGATIVE) 06/24/17 15:44 Urine Bilirubin Negative (NEGATIVE) 06/24/17 15:44 Urine Urobilinogen Negative mg/dL (0.2-1.0) 06/24/17 15:44 RPR Titer Nonreactive (NONREACTIVE) 06/25/17 07:40 Assessment: 06/25/17 12:51 WITHDRAWAL SX Plan: CONTINUE DETOX
[2017-06-25] MEDS: THIAMINE HCL 100 MG TABLET (FP) PO SCH (22:17)
[2017-06-26] MEDS ORDERED: METHADONE HCL 5 MG TABLET (FOR DETOX USE ONLY) PO ONE (10:00)
[2017-06-26] MEDS: VITAMINS A AND D TOPICAL OINTMENT 60 GM TUBE TP SCH ×2 (10:31→22:57)
[2017-06-26] MEDS: ALBUTEROL SO4 18 GM HFA INHALER IH PRN ×2 (10:32→17:22)
[2017-06-26] MEDS: ENALAPRIL MALEATE 10 MG TABLET (FP) PO SCH (10:33)
[2017-06-26] MEDS: PRENATAL VITAMINS W/ FOLIC ACID TABLET (FP) PO SCH (10:33)
[2017-06-26] MEDS: NICOTINE 14 MG/24 HOURS TOPICAL PATCH TD SCH (10:35)
[2017-06-26] MEDS: diazePAM 5 MG TABLET PO PRN ×2 (10:35→18:43)
[2017-06-26] MEDS: ASPIRIN 81 MG CHEWABLE TABLETS PO SCH (10:36)
[2017-06-26] MEDS: NIFEdipine E.R 60 MG TABLET (UD) PO SCH (10:48)
--- NOTE | 2017-06-26 15:34 | PN ---
BHS COWS - Scale Resting Pulse: 0= [place] 80 or Below Sweatin= Chills/Flushing Restless Observation: 1= Difficult to Sit Still Pupil Size: 0= Normal to Room Light Bone or Joint Aches: 1= Mild Discomfort Runny Nose/ Eye Tearin= Runny Nose/Eyes GI Upset > 30mins: 1= Stomach Cramp Tremor Observation of Outstretched Hands: 2= Slight Tremor Visible Yawning Observation: 2= >3x During Session Anxiety or Irritability: 2=Irritable/Anxious Goose Flesh Skin: 0=Smooth Skin COWS Score: 12 BHS Progress Note (SOAP) Subjective: Tremors, Fatigue, Body Aches. Objective: PT. A & O X 3, OBSERVED AMBULATING ON UNIT. NO ACUTE DISTRESS. PT. DENIES CHEST PAIN. 06/26/17 15:31 Vital Signs Temperature 98.1 F 06/26/17 15:18 Pulse Rate 79 06/26/17 15:18 Respiratory Rate 18 06/26/17 15:18 Blood Pressure 143/68 06/26/17 15:18 O2 Sat by Pulse Oximetry (%) Laboratory Tests 06/24/17 06/25/17 06/25/17 15:44 07:40 07:40 WBC 4.7 RBC 3.64 L Hgb 12.0 D Hct 35.8 MCV 98.5 H MCH 33.1 MCHC 33.6 RDW 13.9 Plt Count 268 D MPV 8.4 D Sodium 141 Potassium 4.5 Chloride 107 Carbon Dioxide 27 Anion Gap 7 L BUN 29 H Creatinine 1.0 Creat Clearance w eGFR > 60 Random Glucose 86 Calcium 8.6 Total Bilirubin 0.7 AST 16 D ALT 20 D Alkaline Phosphatase 106 Total Protein 6.1 L Albumin 3.1 L D Urine Color Yellow Urine Appearance Clear Urine pH 5.0 Ur Specific [place] 1.025 Urine Protein Negative Urine Glucose (UA) Negative Urine Ketones Negative Urine Blood Negative Urine Nitrite Negative Urine Bilirubin Negative Urine Urobilinogen Negative RPR Titer 06/25/17 07:40 WBC RBC Hgb Hct MCV MCH MCHC RDW Plt Count MPV Sodium Potassium Chloride Carbon Dioxide Anion Gap BUN Creatinine Creat Clearance w eGFR Random Glucose Calcium Total Bilirubin AST ALT Alkaline Phosphatase Total Protein Albumin Urine Color Urine Appearance Urine pH Ur Specific [place] Urine Protein Urine Glucose (UA) Urine Ketones Urine Blood Urine Nitrite Urine Bilirubin Urine Urobilinogen RPR Titer Nonreactive LABS NOTED. Assessment: 06/26/17 15:32 WITHDRAWAL SYMPTOMS. Plan: CONTINUE DETOX. REPEAT BUN ON 06/28/2017 FOR ELEVATED ADMISSION LEVEL. INCREASE DAILY PO FLUID INTAKE.
[2017-06-26] MEDS: SODIUM CHLORIDE NASAL SPRAY 44 ML BOTTLE NS PRN ×2 (17:23→22:17)
[2017-06-26] MEDS: diphenhydrAMINE HCL 50 MG CAPSULE PO PRN (22:15)
[2017-06-26] MEDS: THIAMINE HCL 100 MG TABLET (FP) PO SCH (22:15)
[2017-06-27] MEDS: diazePAM 5 MG TABLET PO PRN ×2 (08:23→17:20)
[2017-06-27] MEDS ORDERED: METHADONE HCL 5 MG TABLET (FOR DETOX USE ONLY) PO ONE (10:00)
[2017-06-27] MEDS: SODIUM CHLORIDE NASAL SPRAY 44 ML BOTTLE NS PRN ×2 (10:15→22:10)
[2017-06-27] MEDS: ALBUTEROL SO4 18 GM HFA INHALER IH PRN ×2 (10:15→22:11)
[2017-06-27] MEDS: PRENATAL VITAMINS W/ FOLIC ACID TABLET (FP) PO SCH (10:16)
[2017-06-27] MEDS: ASPIRIN 81 MG CHEWABLE TABLETS PO SCH (10:16)
[2017-06-27] MEDS: ENALAPRIL MALEATE 10 MG TABLET (FP) PO SCH (10:16)
[2017-06-27] MEDS: NIFEdipine E.R 60 MG TABLET (UD) PO SCH (10:16)
[2017-06-27] MEDS: VITAMINS A AND D TOPICAL OINTMENT 60 GM TUBE TP SCH ×2 (10:17→22:10)
[2017-06-27] MEDS: NICOTINE 14 MG/24 HOURS TOPICAL PATCH TD SCH (10:19)
--- NOTE | 2017-06-27 14:50 | PN ---
BHS Progress Note (SOAP) Subjective: Sweating, chills, anxious, interrupted sleep Objective: 06/27/17 14:48 Last Vital Signs Temp Pulse Resp BP Pulse Ox 97.7 F 85 18 158/60 06/27/17 13:50 06/27/17 13:50 06/27/17 13:50 06/27/17 13:50 Laboratory Tests 06/24/17 06/25/17 06/25/17 15:44 07:40 07:40 WBC 4.7 RBC 3.64 L Hgb 12.0 D Hct 35.8 MCV 98.5 H MCH 33.1 MCHC 33.6 RDW 13.9 Plt Count 268 D MPV 8.4 D Sodium 141 Potassium 4.5 Chloride 107 Carbon Dioxide 27 Anion Gap 7 L BUN 29 H Creatinine 1.0 Creat Clearance w eGFR > 60 Random Glucose 86 Calcium 8.6 Total Bilirubin 0.7 AST 16 D ALT 20 D Alkaline Phosphatase 106 Total Protein 6.1 L Albumin 3.1 L D Urine Color Yellow Urine Appearance Clear Urine pH 5.0 Ur Specific [place] 1.025 Urine Protein Negative Urine Glucose (UA) Negative Urine Ketones Negative Urine Blood Negative Urine Nitrite Negative Urine Bilirubin Negative Urine Urobilinogen Negative RPR Titer 06/25/17 07:40 WBC RBC Hgb Hct MCV MCH MCHC RDW Plt Count MPV Sodium Potassium Chloride Carbon Dioxide Anion Gap BUN Creatinine Creat Clearance w eGFR Random Glucose Calcium Total Bilirubin AST ALT Alkaline Phosphatase Total Protein Albumin Urine Color Urine Appearance Urine pH Ur Specific [place] Urine Protein Urine Glucose (UA) Urine Ketones Urine Blood Urine Nitrite Urine Bilirubin Urine Urobilinogen RPR Titer Nonreactive Labs noted: bun 29 Assessment: 06/27/17 14:48 Withdrawal symptoms Noted with azotemia Plan: Continue detox Azotemia: encouraged to drink lots of water
[2017-06-27] MEDS: THIAMINE HCL 100 MG TABLET (FP) PO SCH (22:10)
[2017-06-27] MEDS: diphenhydrAMINE HCL 50 MG CAPSULE PO PRN (22:10)
[2017-06-28] MEDS ORDERED: METHADONE HCL 10 MG TABLET (FOR DETOX USE ONLY) PO ONE (10:00)
[2017-06-28] MEDS: PRENATAL VITAMINS W/ FOLIC ACID TABLET (FP) PO SCH (10:54)
[2017-06-28] MEDS: ENALAPRIL MALEATE 10 MG TABLET (FP) PO SCH (10:55)
[2017-06-28] MEDS: NIFEdipine E.R 60 MG TABLET (UD) PO SCH (10:55)
[2017-06-28] MEDS: NICOTINE 14 MG/24 HOURS TOPICAL PATCH TD SCH (10:55)
[2017-06-28] MEDS: VITAMINS A AND D TOPICAL OINTMENT 60 GM TUBE TP SCH ×2 (10:55→22:19)
[2017-06-28] MEDS: ASPIRIN 81 MG CHEWABLE TABLETS PO SCH (10:55)
--- NOTE | 2017-06-28 11:03 | PN ---
BHS Progress Note (SOAP) Subjective: sweating, Interrupted sleep, restless Objective: 06/28/17 10:59 Vital Signs - 8 hr 06/28/17 06/28/17 06/28/17 03:24 06:15 09:09 Temperature 96.5 F L 97.1 F L Pulse Rate 81 69 Respiratory 18 18 18 Rate Blood Pressure 135/65 141/69 Laboratory Last Values WBC 4.7 K/mm3 (4.0-10.0) 06/25/17 07:40 RBC 3.64 M/mm3 (4.00-5.60) L 06/25/17 07:40 Hgb 12.0 GM/dL (11.7-16.9) D 06/25/17 07:40 Hct 35.8 % (35.4-49) 06/25/17 07:40 MCV 98.5 fl (80-96) H 06/25/17 07:40 MCH 33.1 pg (25.7-33.7) 06/25/17 07:40 MCHC 33.6 g/dl (32.0-35.9) 06/25/17 07:40 RDW 13.9 % (11.9-15.9) 06/25/17 07:40 Plt Count 268 K/MM3 (134-434) D 06/25/17 07:40 MPV 8.4 fl (7.5-11.1) D 06/25/17 07:40 Sodium 141 mmol/L (136-145) 06/25/17 07:40 Potassium 4.5 mmol/L (3.5-5.1) 06/25/17 07:40 Chloride 107 mmol/L (98-107) 06/25/17 07:40 Carbon Dioxide 27 mmol/L (21-32) 06/25/17 07:40 Anion Gap 7 (8-16) L 06/25/17 07:40 BUN 19 mg/dL (7-18) H D 06/28/17 07:50 Creatinine 1.0 mg/dL (0.7-1.3) 06/25/17 07:40 Creat Clearance w eGFR > 60 (>60) 06/25/17 07:40 Random Glucose 86 mg/dL (74-106) 06/25/17 07:40 Calcium 8.6 mg/dL (8.5-10.1) 06/25/17 07:40 Total Bilirubin 0.7 mg/dL (0.2-1.0) 06/25/17 07:40 AST 16 U/L (15-37) D 06/25/17 07:40 ALT 20 U/L (12-78) D 06/25/17 07:40 Alkaline Phosphatase 106 U/L (45-117) 06/25/17 07:40 Total Protein 6.1 g/dl (6.4-8.2) L 06/25/17 07:40 Albumin 3.1 g/dl (3.4-5.0) L D 06/25/17 07:40 Urine Color Yellow 06/24/17 15:44 Urine Appearance Clear 06/24/17 15:44 Urine pH 5.0 (5.0-8.0) 06/24/17 15:44 Ur Specific [place] 1.025 (1.005-1.025) 06/24/17 15:44 Urine Protein Negative (NEGATIVE) 06/24/17 15:44 Urine Glucose (UA) Negative (NEGATIVE) 06/24/17 15:44 Urine Ketones Negative (NEGATIVE) 06/24/17 15:44 Urine Blood Negative (NEGATIVE) 06/24/17 15:44 Urine Nitrite Negative (NEGATIVE) 06/24/17 15:44 Urine Bilirubin Negative (NEGATIVE) 06/24/17 15:44 Urine Urobilinogen Negative mg/dL (0.2-1.0) 06/24/17 15:44 RPR Titer Nonreactive (NONREACTIVE) 06/25/17 07:40 Assessment: 06/28/17 11:00 Withdrawal sx Plan: Continue detox
[2017-06-28] MEDS: SODIUM CHLORIDE NASAL SPRAY 44 ML BOTTLE NS PRN (22:12)
[2017-06-28] MEDS: THIAMINE HCL 100 MG TABLET (FP) PO SCH (22:12)
[2017-06-28] MEDS: diphenhydrAMINE HCL 50 MG CAPSULE PO PRN (22:12)
[2017-06-29] MEDS ORDERED: METHADONE HCL 5 MG TABLET (FOR DETOX USE ONLY) PO ONE (06:00)
[2017-06-29] MEDS: NICOTINE 14 MG/24 HOURS TOPICAL PATCH TD SCH (09:09)
[2017-06-29] MEDS: PRENATAL VITAMINS W/ FOLIC ACID TABLET (FP) PO SCH (09:09)
[2017-06-29] MEDS: ASPIRIN 81 MG CHEWABLE TABLETS PO SCH (09:09)
[2017-06-29] MEDS: NIFEdipine E.R 60 MG TABLET (UD) PO SCH (09:09)
[2017-06-29] MEDS: ENALAPRIL MALEATE 10 MG TABLET (FP) PO SCH (09:09)
[2017-06-29] MEDS: SODIUM CHLORIDE NASAL SPRAY 44 ML BOTTLE NS PRN (09:10)
[2017-06-29] MEDS: ALBUTEROL SO4 18 GM HFA INHALER IH PRN (09:10)
--- NOTE | 2017-06-29 09:17 | DS ---
[facility] Detox Discharge Summary Admission Date: 06/24/17 Discharge Date: 06/29/17 - History Present History: Cannabis Dependence, Opioid Dependence Pertinent Past History: COPD HTN - Physical Exam Results Vital Signs: Vital Signs Temperature 97.3 F L 06/29/17 06:34 Pulse Rate 72 06/29/17 06:34 Respiratory Rate 18 06/29/17 06:34 Blood Pressure 134/59 06/29/17 06:34 O2 Sat by Pulse Oximetry (%) Pertinent Admission Physical Exam Findings: Withdrawal sx Laboratory Last Values WBC 4.7 K/mm3 (4.0-10.0) 06/25/17 07:40 RBC 3.64 M/mm3 (4.00-5.60) L 06/25/17 07:40 Hgb 12.0 GM/dL (11.7-16.9) D 06/25/17 07:40 Hct 35.8 % (35.4-49) 06/25/17 07:40 MCV 98.5 fl (80-96) H 06/25/17 07:40 MCH 33.1 pg (25.7-33.7) 06/25/17 07:40 MCHC 33.6 g/dl (32.0-35.9) 06/25/17 07:40 RDW 13.9 % (11.9-15.9) 06/25/17 07:40 Plt Count 268 K/MM3 (134-434) D 06/25/17 07:40 MPV 8.4 fl (7.5-11.1) D 06/25/17 07:40 Sodium 141 mmol/L (136-145) 06/25/17 07:40 Potassium 4.5 mmol/L (3.5-5.1) 06/25/17 07:40 Chloride 107 mmol/L (98-107) 06/25/17 07:40 Carbon Dioxide 27 mmol/L (21-32) 06/25/17 07:40 Anion Gap 7 (8-16) L 06/25/17 07:40 BUN 19 mg/dL (7-18) H D 06/28/17 07:50 Creatinine 1.0 mg/dL (0.7-1.3) 06/25/17 07:40 Creat Clearance w eGFR > 60 (>60) 06/25/17 07:40 Random Glucose 86 mg/dL (74-106) 06/25/17 07:40 Calcium 8.6 mg/dL (8.5-10.1) 06/25/17 07:40 Total Bilirubin 0.7 mg/dL (0.2-1.0) 06/25/17 07:40 AST 16 U/L (15-37) D 06/25/17 07:40 ALT 20 U/L (12-78) D 06/25/17 07:40 Alkaline Phosphatase 106 U/L (45-117) 06/25/17 07:40 Total Protein 6.1 g/dl (6.4-8.2) L 06/25/17 07:40 Albumin 3.1 g/dl (3.4-5.0) L D 06/25/17 07:40 Urine Color Yellow 06/24/17 15:44 Urine Appearance Clear 06/24/17 15:44 Urine pH 5.0 (5.0-8.0) 06/24/17 15:44 Ur Specific [place] 1.025 (1.005-1.025) 06/24/17 15:44 Urine Protein Negative (NEGATIVE) 06/24/17 15:44 Urine Glucose (UA) Negative (NEGATIVE) 06/24/17 15:44 Urine Ketones Negative (NEGATIVE) 06/24/17 15:44 Urine Blood Negative (NEGATIVE) 06/24/17 15:44 Urine Nitrite Negative (NEGATIVE) 06/24/17 15:44 Urine Bilirubin Negative (NEGATIVE) 06/24/17 15:44 Urine Urobilinogen Negative mg/dL (0.2-1.0) 06/24/17 15:44 RPR Titer Nonreactive (NONREACTIVE) 06/25/17 07:40 Labs noted - Treatment Hospital Course: Detox Protocol Followed, Detoxed Safely, Responded well, Discharged Condition Good, Rehab Referral Accepted Patient has Accepted a Rehab Referral to: [facility] IOP - Medication Discharge Medications: Ambulatory Orders Albuterol Sulfate [Proair Hfa -] 2 inh PO QID PRN 11/20/15 Sodium Chloride [Saline Nose [place]] 89 ml NS TID PRN 01/11/16 Petrolatum,White/Lanolin [Vitamin A & D Ointment] 113 gm TP BID 08/25/16 Albuterol Sulfate Inhaler - [Ventolin HFA Inhaler -] 2 puff IH Q4H PRN #1 inhaler 03/24/17 Aspirin [ASA -] 81 mg PO DAILY #30 tab 03/24/17 Enalapril Maleate [Vasotec] 20 mg PO DAILY #30 tablet 03/24/17 Nifedipine ER [Procardia XL -] 60 mg PO DAILY #30 tab.er.24 03/24/17 - Diagnosis (1) Nicotine dependence Current Visit: Yes Status: Acute Qualifiers: Nicotine product type: cigarettes Substance use status: in withdrawal Qualified Code(s): F17.213 - Nicotine dependence, cigarettes, with withdrawal (2) Opioid dependence with withdrawal Current Visit: Yes Status: Acute (3) COPD (chronic obstructive pulmonary disease) with emphysema Current Visit: Yes Status: Chronic Qualifiers: Emphysema type: unspecified Qualified Code(s): J43.9 - Emphysema, unspecified (4) HTN (hypertension) Current Visit: Yes Status: Chronic Qualifiers: Hypertension type: essential hypertension - AMA Did Patient Leave Against Medical Advice: No
[2017-06-29 09:33] VITALS: BP 136/55; PULSE 83; TEMP 95.9
[2017-06-29] MEDS ORDERED: VITAMINS A AND D TOPICAL OINTMENT 60 GM TUBE TP SCH (10:00)
== END 2017-06-29 09:30 | disposition home or self-care (01) | DRG 897 ==
LOC: YASAS 12:37 → Y3N 17:31
PROVIDERS: ADMIT Internal Medicine; ATTEND Internal Medicine
PROC: HZ2ZZZZ Detoxification Services for Substance Abuse Treatment (ICD-10-PCS; principal; 2017-06-24)
DX: F11.23 Opioid dependence with withdrawal (principal); F17.213 Nicotine dependence, cigarettes, with withdrawal; F19.24 Other psychoactive substance dependence with psychoactive substance-induced mood disorder; J43.9 Emphysema, unspecified; I10 Essential (primary) hypertension; R79.89 Other specified abnormal findings of blood chemistry; R76.11 Nonspecific reaction to tuberculin skin test without active tuberculosis
CPT/HCPCS: 36415; 80053; 81003; 84520; 85027; 86593; 93005; 93010

== ENCOUNTER 2017-07-30 11:15 | Inpatient (IN) | payer OTHER ==
[2017-07-30 13:43] VITALS: BMI 23.7
--- NOTE | 2017-07-30 15:51 | HP ---
COWS - Scale Resting Pulse: 0= [place] 80 or Below Sweatin=Flushed/Facial Moisture Restless Observation: 3= Extraneous Movement Pupil Size: 2= Moderately Dilated Bone or Joint Aches: 2= Severe Diffuse Aches Runny Nose/ Eye Tearin= Runny Nose/Eyes GI Upset > 30mins: 3= Vomiting/Diarrhea Tremor Observation: 2= Slight Tremor Visible Yawning Observation: 2= >3x During Session Anxiety or Irritability: 2=Irritable/Anxious Goose Flesh Skin: 0=Smooth Skin COWS Score: 20 Admission ROS S - HPI Chief Complaint: i need help to stop using heroin Allergies/Adverse Reactions: Allergies Allergy/AdvReac Type Severity Reaction Status Date / Time No Known Allergies Allergy Verified 07/30/17 15:48 History of Present Illness: this 77 years old male with heroin dependence,seeking detox,last treatment 06/24 to 06/29/17 htn,asthma nicotine dependence longest period of sobriety 18 months - Ebola screening Have you traveled outside of the country in the last 21 days: No Have you had contact with anyone from an Ebola affected area: No Have you been sick,other than usual withdrawal symptoms: No Do you have a fever: No - Review of Systems Constitutional: Chills, Loss of Appetite, Malaise, Night Sweats, Changes in sleep, Weakness, Unintentional Wgt. Loss EENT: reports: Tearing, Nose Congestion Respiratory: reports: Other (asthma spontaneous pneumothorax left 2004) Cardiac: reports: No Symptoms Reported GI: reports: Nausea, Vomiting, Abdominal cramping : reports: No Symptoms Reported Musculoskeletal: reports: Back Pain, Joint Pain, Muscle Pain Integumentary: reports: Dryness Neuro: reports: No Symptoms reported Endocrine: reports: No Symptoms Reported Hematology: reports: No Symptoms Reported Psychiatric: reports: No Sypmtoms Reported, Mood/Affect Appropiate, Orientated x3 Patient History - Patient Medical History Hx Anemia: No Hx Asthma: Yes (on albuterol inhaler) Hx Chronic Obstructive Pulmonary Disease (COPD): Yes Hx Cancer: No Hx Cardiac Disorders: No Hx Congestive Heart Failure: No Hx Hypertension: Yes (on med) Hx Hypercholesterolemia: No Hx Pacemaker: No HX Cerebrovascular Accident: No Hx Seizures: No Hx Dementia: No Hx Diabetes: No Hx Gastrointestinal Disorders: No Hx Liver Disease: No Hx Genitourinary Disorders: No Hx Sexually Transmitted Disorders: No Hx Renal Disease (ESRD): No Hx Thyroid Disease: No Hx Human Immunodeficiency Virus (HIV): No (NEGATIVE HX last 2015) Hx Hepatitis C: No Hx Depression: Yes (no medication) Hx Suicide Attempt: No Hx Bipolar Disorder: No Hx Schizophrenia: No Other Medical History: no suicidal,no homicidal - Patient Surgical History Past Surgical History: Yes Hx Neurologic Surgery: No Hx Cataract Extraction: No Hx Cardiac Surgery: No Hx Lung Surgery: Yes (pneumothorax about 2005 left) Hx Breast Surgery: No Hx Breast Biopsy: No Hx Abdominal Surgery: No Hx Appendectomy: No Hx Cholecystectomy: No Hx Genitourinary Surgery: No Hx Section: No Hx Orthopedic Surgery: No Hx Hysterectomy: No Anesthesia Reaction: No - PPD History Previous Implant?: Yes Results: positive PPD to be Administered?: No - Smoking Cessation Smoking history: Current every day smoker Have you smoked in the past 12 months: Yes Aproximately how many cigarettes per day: 4 Cigars Per Day: 0 Hx Chewing Tobacco Use: No Initiated information on smoking cessation: Yes 'Breaking Loose' booklet given: 07/30/17 - Substance & Tx. History Hx Alcohol Use: No Hx Substance Use: Yes Substance Use Type: Heroin - Substances Abused Heroin Route: Inhalation Frequency: Daily Amount used: 3 BAGS Age of first use: 20 Date of Last Use: 07/30/17 Family Disease History - Family Disease History Family Disease History: Diabetes: Son, Heart Disease: Father (), Mother () Admission Physical Exam BHS - Vital Signs Vital Signs: Vital Signs - 24 hr 07/30/17 13:40 Temperature 96.2 F L Pulse Rate 76 Respiratory 20 Rate Blood Pressure 143/69 - Physical General Appearance: Yes: Moderate Distress, Tremorous, Irritable, Sweating, Anxious HEENTM: Yes: Normal ENT Inspection, SARAH BETH, Pharynx Normal Respiratory: Yes: Lungs Clear, Normal Breath Sounds, No Respiratory Distress, Surgical Scar (s/p pneuthorax left) Neck: Yes: Within Normal Limits, Supple, Trachea in good position Breast: Yes: Within Normal Limits Cardiology: Yes: Within Normal Limits, Regular Rhythm, Regular Rate, S1, S2 Abdominal: Yes: Within Normal Limits, Normal Bowel Sounds, Non Tender, Flat, Soft Genitourinary: Yes: Within Normal Limits Back: Yes: Muscle Spasm Neurological: Yes: Within Normal Limits, 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 intact, Fully Oriented, Alert, Motor Strength 5/5 Integumentary: Yes: Dry Lymphatic: Yes: Within Normal Limits - Diagnostic (1) Opioid dependence with withdrawal Current Visit: No Status: Acute (2) Nicotine dependence Current Visit: No Status: Acute Qualifiers: Nicotine product type: cigarettes Substance use status: in withdrawal Qualified Code(s): F17.213 - Nicotine dependence, cigarettes, with withdrawal; F17.213 - Nicotine dependence, cigarettes, with withdrawal (3) PPD positive Current Visit: No Status: Acute (4) COPD (chronic obstructive pulmonary disease) with emphysema Current Visit: No Status: Chronic Qualifiers: Emphysema type: unspecified Qualified Code(s): J43.9 - Emphysema, unspecified; J43.9 - Emphysema, unspecified; J43.9 - Emphysema, unspecified; J43.9 - Emphysema, unspecified (5) HTN (hypertension) Current Visit: No Status: Chronic Qualifiers: Hypertension type: essential hypertension (6) Weight loss Current Visit: Yes Status: Acute Cleared for Admission S - Detox or Rehab [facility] Level of Care: Medically Managed Detox Regimen/Protocol: Methadone [facility] Breath Alcohol Content Breath Alcohol Content: 0 Urine Drug Screen - Results Drug Screen Negative: No Urine Drug Screen Results: OPI-Opiates, MET-Methamphetamine, BZO-Benzodiazepines , MTD-Methadone
[2017-07-30] MEDS ORDERED: P-EPHED 60MG/TRIPROLIDI 2.5MG TABLET PO PRN (16:04)
[2017-07-30] MEDS ORDERED: MAGNESIUM CITRATE 300 ML BOTTLE PO PRN (16:04)
[2017-07-30] MEDS ORDERED: guaiFENesin/D-METHORPHAN HB 10 ML UNIT-DOSE CUPS PO PRN (16:04)
[2017-07-30] MEDS ORDERED: LOPERAMIDE HCL 2 MG CAPSULE PO PRN (16:04)
[2017-07-30] MEDS ORDERED: MENTHOL/PHENOL 1 EACH UD MM PRN (16:04)
[2017-07-30] MEDS ORDERED: MAG HYDROX/AL HYDROX/SIMETH 30 ML UNIT-DOSE CUP PO PRN (16:04)
[2017-07-30] MEDS ORDERED: MAGNESIUM HYDROX 2400MG/30ML ORAL SUSPENSION 30 ML CUP PO PRN (16:04)
[2017-07-30] MEDS ORDERED: hydrOXYzine PAMOATE 25 MG CAPSULE (FP) PO PRN (16:04)
[2017-07-30] MEDS ORDERED: IBUPROFEN 400 MG TABLET (FP) PO PRN (16:04)
[2017-07-30] MEDS ORDERED: ACETAMINOPHEN 325 MG TABLET (FP) PO PRN (16:04)
[2017-07-30] MEDS ORDERED: METHADONE HCL 10 MG TABLET (FOR DETOX USE ONLY) PO ONE ×2 (17:45→23:00)
[2017-07-30] MEDS: diazePAM 5 MG TABLET PO PRN (18:44)
[2017-07-30 21:06] LABS: URINE APPEARANCE SLCLOUDY; URINE BILIRUBIN NEGATIVE (NEGATIVE); URINE BLOOD NEGATIVE (NEGATIVE); URINE COLOR DKYELLOW; URINE GLUCOSE (UA) NEGATIVE (NEGATIVE); URINE KETONE TRACE (NEGATIVE); URINE NITRITE NEGATIVE (NEGATIVE); URINE PROTEIN NEGATIVE (NEGATIVE); URINE UROBILINOGEN NEGATIVE mg/dL (0.2-1.0)
[2017-07-30] MEDS: diphenhydrAMINE HCL 50 MG CAPSULE PO PRN (22:24)
[2017-07-30] MEDS: THIAMINE HCL 100 MG TABLET (FP) PO SCH (22:24)
[2017-07-30 22:53] LABS: URINE LEUK ESTERASE Negative (NEGATIVE)
[2017-07-31] MEDS ORDERED: METHADONE HCL 10 MG TABLET (FOR DETOX USE ONLY) PO ONE (10:00)
[2017-07-31] MEDS: ASPIRIN 81 MG CHEWABLE TABLETS PO SCH (10:29)
[2017-07-31] MEDS: PRENATAL VITAMINS W/ FOLIC ACID TABLET (FP) PO SCH (10:29)
[2017-07-31] MEDS: ENALAPRIL MALEATE 10 MG TABLET (FP) PO SCH (10:30)
[2017-07-31] MEDS: TIOTROPIUM BROMIDE 18 MCG/INH (DEVICE W/ 5 CAPSULES) IH SCH (10:30)
[2017-07-31] MEDS: SODIUM CHLORIDE NASAL SPRAY 44 ML BOTTLE NS PRN ×2 (10:31→22:33)
[2017-07-31] MEDS: NIFEdipine E.R 60 MG TABLET (UD) PO SCH (10:32)
[2017-07-31 11:19] LABS: MCH 33.5 pg (25.7-33.7); MCHC 34.2 g/dl (32.0-35.9); MEAN PLT VOLUME 8.4 fl (7.5-11.1); PLATELET COUNT 294 K/MM3 (134-434); RDW 13.4 % (11.9-15.9); WHITE BLOOD COUNT 4.2 K/mm3 (4.0-10.0)
[2017-07-31 11:29] LABS: ALBUMIN 3.2 g/dl (3.4-5.0); ALK PHOS 107 U/L (45-117); ANION GAP 9 (8-16); BILIRUBIN,TOTAL 0.8 mg/dL (0.2-1.0); CALCIUM 8.7 mg/dL (8.5-10.1); CO2 24 mmol/L (21-32); GLUCOSE,RANDOM 93 mg/dL (74-106); SGOT/AST 20 U/L (15-37); SGPT/ALT 23 U/L (12-78); TOT PROT 6.5 g/dl (6.4-8.2)
--- NOTE | 2017-07-31 12:23 | PN ---
BHS COWS - Scale Resting Pulse: 1= [place] 81-100 Sweatin= Chills/Flushing Restless Observation: 3= Extraneous Movement Pupil Size: 1= Pupils >than Normal Bone or Joint Aches: 2= Severe Diffuse Aches Runny Nose/ Eye Tearin= Runny Nose/Eyes GI Upset > 30mins: 3= Vomiting/Diarrhea Tremor Observation of Outstretched Hands: 2= Slight Tremor Visible Yawning Observation: 1= 1-2x During Session Anxiety or Irritability: 2=Irritable/Anxious Goose Flesh Skin: 0=Smooth Skin COWS Score: 18 S Progress Note (SOAP) Subjective: ALERT,IRRITABLE,ANXIOUS,INTERRUPTED SLEEP,PAIN IN THE BODY AND BACK Objective: 07/31/17 12:27 Vital Signs Temperature 97.4 F L 07/31/17 10:20 Pulse Rate 87 07/31/17 10:20 Respiratory Rate 18 07/31/17 10:20 Blood Pressure 145/79 07/31/17 10:20 O2 Sat by Pulse Oximetry (%) EKG NSR 80/MIN NO CHEST PAIN,NO SOB,NO DIZZINESS Laboratory Last Values WBC 4.2 K/mm3 (4.0-10.0) 07/31/17 07:50 RBC 3.96 M/mm3 (4.00-5.60) L 07/31/17 07:50 Hgb 13.3 GM/dL (11.7-16.9) D 07/31/17 07:50 Hct 38.8 % (35.4-49) 07/31/17 07:50 MCV 98.0 fl (80-96) H 07/31/17 07:50 MCH 33.5 pg (25.7-33.7) 07/31/17 07:50 MCHC 34.2 g/dl (32.0-35.9) 07/31/17 07:50 RDW 13.4 % (11.9-15.9) 07/31/17 07:50 Plt Count 294 K/MM3 (134-434) 07/31/17 07:50 MPV 8.4 fl (7.5-11.1) 07/31/17 07:50 Sodium 138 mmol/L (136-145) 07/31/17 07:50 Potassium 4.4 mmol/L (3.5-5.1) 07/31/17 07:50 Chloride 105 mmol/L (98-107) 07/31/17 07:50 Carbon Dioxide 24 mmol/L (21-32) 07/31/17 07:50 Anion Gap 9 (8-16) 07/31/17 07:50 BUN 26 mg/dL (7-18) H D 07/31/17 07:50 Creatinine 1.0 mg/dL (0.7-1.3) 07/31/17 07:50 Creat Clearance w eGFR > 60 (>60) 07/31/17 07:50 Random Glucose 93 mg/dL (74-106) 07/31/17 07:50 Calcium 8.7 mg/dL (8.5-10.1) 07/31/17 07:50 Total Bilirubin 0.8 mg/dL (0.2-1.0) 07/31/17 07:50 AST 20 U/L (15-37) D 07/31/17 07:50 ALT 23 U/L (12-78) 07/31/17 07:50 Alkaline Phosphatase 107 U/L (45-117) 07/31/17 07:50 Total Protein 6.5 g/dl (6.4-8.2) 07/31/17 07:50 Albumin 3.2 g/dl (3.4-5.0) L 07/31/17 07:50 Urine Color Dky[place] 07/30/17 20:00 Urine Appearance Slcloudy 07/30/17 20:00 Urine pH 5.0 (5.0-8.0) 07/30/17 20:00 Ur Specific [place] 1.025 (1.005-1.025) 07/30/17 20:00 Urine Protein Negative (NEGATIVE) 07/30/17 20:00 Urine Glucose (UA) Negative (NEGATIVE) 07/30/17 20:00 Urine Ketones Trace (NEGATIVE) H 07/30/17 20:00 Urine Blood Negative (NEGATIVE) 07/30/17 20:00 Urine Nitrite Negative (NEGATIVE) 07/30/17 20:00 Urine Bilirubin Negative (NEGATIVE) 07/30/17 20:00 Urine Urobilinogen Negative mg/dL (0.2-1.0) 07/30/17 20:00 Ur Leukocyte Esterase Negative (NEGATIVE) 07/30/17 20:00 RPR Titer Nonreactive (NONREACTIVE) 07/31/17 07:50 07/31/17 12:29 Assessment: 07/31/17 12:29 WITHDRAWAL SYMPTOM Plan: CONTINUE DETOX,ENCOURAGE ORAL FLUID
[2017-07-31] MEDS: ALBUTEROL SO4 18 GM HFA INHALER IH PRN (16:26)
[2017-07-31] MEDS: THIAMINE HCL 100 MG TABLET (FP) PO SCH (22:33)
[2017-07-31] MEDS: diazePAM 5 MG TABLET PO PRN (22:33)
[2017-08-01] MEDS: diazePAM 5 MG TABLET PO PRN ×2 (07:38→22:23)
--- NOTE | 2017-08-01 09:10 | EKG ---
Test Reason : Blood Pressure : / mmHG Vent. Rate : 080 BPM Atrial Rate : 080 BPM P-R Int : 176 ms QRS Dur : 084 ms QT Int : 342 ms P-R-T Axes : 080 069 057 degrees QTc Int : 394 ms NORMAL SINUS RHYTHM RIGHT ATRIAL ENLARGEMENT BORDERLINE ECG WHEN COMPARED WITH ECG OF 24-JUN-2017 19:34, NO SIGNIFICANT CHANGE WAS FOUND Confirmed by SEFERINO AMAODR MD ([id number]) on 08/01/2017 9:10:29 AM Referred By: Confirmed By:SEFERINO AMADOR MD
[2017-08-01] MEDS ORDERED: METHADONE HCL 5 MG TABLET (FOR DETOX USE ONLY) PO ONE (10:00)
[2017-08-01] MEDS: NIFEdipine E.R 60 MG TABLET (UD) PO SCH (10:32)
[2017-08-01] MEDS: ASPIRIN 81 MG CHEWABLE TABLETS PO SCH (10:32)
[2017-08-01] MEDS: ENALAPRIL MALEATE 10 MG TABLET (FP) PO SCH (10:32)
[2017-08-01] MEDS: PRENATAL VITAMINS W/ FOLIC ACID TABLET (FP) PO SCH (10:32)
[2017-08-01] MEDS: ALBUTEROL SO4 18 GM HFA INHALER IH PRN ×2 (10:32→22:25)
[2017-08-01] MEDS: TIOTROPIUM BROMIDE 18 MCG/INH (DEVICE W/ 5 CAPSULES) IH SCH (10:32)
--- NOTE | 2017-08-01 11:45 | PN ---
BHS COWS - Scale Resting Pulse: 0= [place] 80 or Below Sweatin= Chills/Flushing Restless Observation: 3= Extraneous Movement Pupil Size: 1= Pupils >than Normal Bone or Joint Aches: 2= Severe Diffuse Aches Runny Nose/ Eye Tearin= Runny Nose/Eyes GI Upset > 30mins: 2= Nausea/Diarrhea Tremor Observation of Outstretched Hands: 2= Slight Tremor Visible Yawning Observation: 1= 1-2x During Session Anxiety or Irritability: 2=Irritable/Anxious Goose Flesh Skin: 0=Smooth Skin COWS Score: 16 BHS Progress Note (SOAP) Subjective: ALERT,IRRITABLE,ANXIOUS,INTERRUPTED SLEEP,TREMOR,PAIN IN THE BODY AND BACK Objective: 08/01/17 11:43 Vital Signs Temperature 97.0 F L 08/01/17 10:00 Pulse Rate 109 H 08/01/17 10:00 Respiratory Rate 18 08/01/17 10:00 Blood Pressure 150/92 08/01/17 10:00 O2 Sat by Pulse Oximetry (%) 08/01/17 11:43 Laboratory Last Values WBC 4.2 K/mm3 (4.0-10.0) 07/31/17 07:50 RBC 3.96 M/mm3 (4.00-5.60) L 07/31/17 07:50 Hgb 13.3 GM/dL (11.7-16.9) D 07/31/17 07:50 Hct 38.8 % (35.4-49) 07/31/17 07:50 MCV 98.0 fl (80-96) H 07/31/17 07:50 MCH 33.5 pg (25.7-33.7) 07/31/17 07:50 MCHC 34.2 g/dl (32.0-35.9) 07/31/17 07:50 RDW 13.4 % (11.9-15.9) 07/31/17 07:50 Plt Count 294 K/MM3 (134-434) 07/31/17 07:50 MPV 8.4 fl (7.5-11.1) 07/31/17 07:50 Sodium 138 mmol/L (136-145) 07/31/17 07:50 Potassium 4.4 mmol/L (3.5-5.1) 07/31/17 07:50 Chloride 105 mmol/L (98-107) 07/31/17 07:50 Carbon Dioxide 24 mmol/L (21-32) 07/31/17 07:50 Anion Gap 9 (8-16) 07/31/17 07:50 BUN 26 mg/dL (7-18) H D 07/31/17 07:50 Creatinine 1.0 mg/dL (0.7-1.3) 07/31/17 07:50 Creat Clearance w eGFR > 60 (>60) 07/31/17 07:50 Random Glucose 93 mg/dL (74-106) 07/31/17 07:50 Calcium 8.7 mg/dL (8.5-10.1) 07/31/17 07:50 Total Bilirubin 0.8 mg/dL (0.2-1.0) 07/31/17 07:50 AST 20 U/L (15-37) D 07/31/17 07:50 ALT 23 U/L (12-78) 07/31/17 07:50 Alkaline Phosphatase 107 U/L (45-117) 07/31/17 07:50 Total Protein 6.5 g/dl (6.4-8.2) 07/31/17 07:50 Albumin 3.2 g/dl (3.4-5.0) L 07/31/17 07:50 Urine Color Dkyellow 07/30/17 20:00 Urine Appearance Slcloudy 07/30/17 20:00 Urine pH 5.0 (5.0-8.0) 07/30/17 20:00 Ur Specific [place] 1.025 (1.005-1.025) 07/30/17 20:00 Urine Protein Negative (NEGATIVE) 07/30/17 20:00 Urine Glucose (UA) Negative (NEGATIVE) 07/30/17 20:00 Urine Ketones Trace (NEGATIVE) H 07/30/17 20:00 Urine Blood Negative (NEGATIVE) 07/30/17 20:00 Urine Nitrite Negative (NEGATIVE) 07/30/17 20:00 Urine Bilirubin Negative (NEGATIVE) 07/30/17 20:00 Urine Urobilinogen Negative mg/dL (0.2-1.0) 07/30/17 20:00 Ur Leukocyte Esterase Negative (NEGATIVE) 07/30/17 20:00 RPR Titer Nonreactive (NONREACTIVE) 07/31/17 07:50 08/01/17 11:44 Assessment: 08/01/17 11:44 WITHDRAWAL SYMPTOM Plan: CONTINUE DETOX,BP MONITORING
[2017-08-01] MEDS: THIAMINE HCL 100 MG TABLET (FP) PO SCH (22:23)
[2017-08-01] MEDS: SODIUM CHLORIDE NASAL SPRAY 44 ML BOTTLE NS PRN (22:23)
[2017-08-02] MEDS: diazePAM 5 MG TABLET PO PRN (05:30)
--- NOTE | 2017-08-02 09:51 | PN ---
BHS Progress Note (SOAP) Subjective: ALERT,IRRITABLE,ANXIOUS,INTERRUPTED SLEEP,PAIN IN THE BODY Objective: 08/02/17 09:51 Vital Signs Temperature 97.7 F 08/02/17 09:37 Pulse Rate 101 H 08/02/17 09:37 Respiratory Rate 20 08/02/17 09:37 Blood Pressure 140/73 08/02/17 09:37 O2 Sat by Pulse Oximetry (%) Assessment: 08/02/17 09:51 WITHDRAWAL SYMPTOM Plan: CONTINUE DETOX
[2017-08-02] MEDS ORDERED: METHADONE HCL 5 MG TABLET (FOR DETOX USE ONLY) PO ONE (10:00)
[2017-08-02] MEDS: TIOTROPIUM BROMIDE 18 MCG/INH (DEVICE W/ 5 CAPSULES) IH SCH (10:30)
[2017-08-02] MEDS: ASPIRIN 81 MG CHEWABLE TABLETS PO SCH (10:31)
[2017-08-02] MEDS: PRENATAL VITAMINS W/ FOLIC ACID TABLET (FP) PO SCH (10:31)
[2017-08-02] MEDS: NIFEdipine E.R 60 MG TABLET (UD) PO SCH (10:31)
[2017-08-02] MEDS: ENALAPRIL MALEATE 10 MG TABLET (FP) PO SCH (10:31)
[2017-08-02] MEDS: SODIUM CHLORIDE NASAL SPRAY 44 ML BOTTLE NS PRN ×2 (14:17→22:08)
[2017-08-02] MEDS: diphenhydrAMINE HCL 50 MG CAPSULE PO PRN (22:09)
[2017-08-02] MEDS: THIAMINE HCL 100 MG TABLET (FP) PO SCH (22:09)
--- NOTE | 2017-08-03 09:42 | PN ---
BHS Progress Note (SOAP) Subjective: ALERT,IRRITABLE,ANXIOUS,INTERRUPTED SLEEP Objective: 08/03/17 09:41 Vital Signs Temperature 98.1 F 08/03/17 06:00 Pulse Rate 62 08/03/17 07:25 Respiratory Rate 18 08/03/17 07:25 Blood Pressure 118/58 08/03/17 07:25 O2 Sat by Pulse Oximetry (%) 08/03/17 09:42 Assessment: 08/03/17 09:42 WITHDRAWAL SYMPTOM Plan: CONTINUE DETOX,DISCHARGE IN AM
[2017-08-03] MEDS ORDERED: METHADONE HCL 10 MG TABLET (FOR DETOX USE ONLY) PO ONE (10:00)
[2017-08-03] MEDS: ASPIRIN 81 MG CHEWABLE TABLETS PO SCH (10:40)
[2017-08-03] MEDS: ENALAPRIL MALEATE 10 MG TABLET (FP) PO SCH (10:40)
[2017-08-03] MEDS: PRENATAL VITAMINS W/ FOLIC ACID TABLET (FP) PO SCH (10:41)
[2017-08-03] MEDS: TIOTROPIUM BROMIDE 18 MCG/INH (DEVICE W/ 5 CAPSULES) IH SCH (10:41)
[2017-08-03] MEDS: NIFEdipine E.R 60 MG TABLET (UD) PO SCH (10:41)
[2017-08-03] MEDS: ALBUTEROL SO4 18 GM HFA INHALER IH PRN ×2 (10:41→22:04)
[2017-08-03] MEDS: THIAMINE HCL 100 MG TABLET (FP) PO SCH (22:03)
[2017-08-03] MEDS: diphenhydrAMINE HCL 50 MG CAPSULE PO PRN (22:03)
[2017-08-04] MEDS ORDERED: METHADONE HCL 5 MG TABLET (FOR DETOX USE ONLY) PO ONE (06:00)
--- NOTE | 2017-08-04 08:44 | DS ---
[facility] Detox Discharge Summary Admission Date: 07/30/17 Discharge Date: 08/04/17 - History Present History: Cannabis Dependence, Opioid Dependence Pertinent Past History: COPD, HTN, anxiety, insomnia, depression, wt loss - Physical Exam Results Vital Signs: Vital Signs Temperature 97.5 F L 08/04/17 06:00 Pulse Rate 84 08/04/17 06:00 Respiratory Rate 18 08/04/17 06:00 Blood Pressure 142/75 08/04/17 06:00 O2 Sat by Pulse Oximetry (%) Pertinent Admission Physical Exam Findings: withdrawal sx - Treatment Hospital Course: Detox Protocol Followed, Detoxed Safely, Responded well, Discharged Condition Good, Rehab Referral Accepted Patient has Accepted a Rehab Referral to: Yes - Medication Discharge Medications: Ambulatory Orders Albuterol Sulfate [Proair Hfa -] 2 inh PO QID PRN 11/20/15 Sodium Chloride [Saline Nose [place]] 89 ml NS TID PRN 01/11/16 Umeclidinium [place] [Incruse Ellipta] 62.5 mcg IH DAILY 07/30/17 Aspirin [ASA -] 81 mg PO DAILY #30 tab 08/04/17 Enalapril Maleate [Vasotec] 20 mg PO DAILY #30 tablet 08/04/17 Nifedipine ER [Procardia XL -] 60 mg PO DAILY #30 tab.er.24 08/04/17 - Diagnosis (1) Cannabis dependence, uncomplicated Current Visit: No Status: Acute (2) Drug-induced mood disorder Current Visit: No Status: Acute (3) Nicotine dependence Current Visit: No Status: Acute Qualifiers: Nicotine product type: cigarettes Substance use status: in withdrawal Qualified Code(s): F17.213 - Nicotine dependence, cigarettes, with withdrawal; F17.213 - Nicotine dependence, cigarettes, with withdrawal (4) Opioid dependence with withdrawal Current Visit: No Status: Acute (5) PPD positive Current Visit: No Status: Acute (6) COPD (chronic obstructive pulmonary disease) with emphysema Current Visit: No Status: Chronic Qualifiers: Emphysema type: unspecified Qualified Code(s): J43.9 - Emphysema, unspecified; J43.9 - Emphysema, unspecified; J43.9 - Emphysema, unspecified; J43.9 - Emphysema, unspecified (7) HTN (hypertension) Current Visit: No Status: Chronic Qualifiers: Hypertension type: essential hypertension - AMA Did Patient Leave Against Medical Advice: No
[2017-08-04 09:14] VITALS: BP 116/61; PULSE 90; TEMP 96.9
== END 2017-08-04 09:08 | disposition home or self-care (01) | DRG 897 ==
LOC: YASAS 11:15 → Y6N 17:12
PROVIDERS: ADMIT Internal Medicine; ATTEND Internal Medicine
PROC: HZ2ZZZZ Detoxification Services for Substance Abuse Treatment (ICD-10-PCS; principal; 2017-07-30)
DX: F11.23 Opioid dependence with withdrawal (principal); F12.20 Cannabis dependence, uncomplicated; F17.210 Nicotine dependence, cigarettes, uncomplicated; F19.24 Other psychoactive substance dependence with psychoactive substance-induced mood disorder; I10 Essential (primary) hypertension; J43.9 Emphysema, unspecified; J45.909 Unspecified asthma, uncomplicated; R76.11 Nonspecific reaction to tuberculin skin test without active tuberculosis; R63.4 Abnormal weight loss; Z68.22 Body mass index [BMI] 22.0-22.9, adult
CPT/HCPCS: 36415; 80053; 81003; 85027; 86593; 93005; 93010

== ENCOUNTER 2018-06-19 11:35 | Inpatient (IN) | payer OTHER ==
[2018-06-19 12:26] VITALS: BMI 24.8
--- NOTE | 2018-06-19 15:33 | HP ---
COWS - Scale Resting Pulse: 1= [place] 81-100 Sweatin=Flushed/Facial Moisture Restless Observation: 3= Extraneous Movement Pupil Size: 0= Normal to Room Light Bone or Joint Aches: 0= None Runny Nose/ Eye Tearin= Runny Nose/Eyes GI Upset > 30mins: 2= Nausea/Diarrhea Tremor Observation: 2= Slight Tremor Visible Yawning Observation: 0= None Anxiety or Irritability: 2=Irritable/Anxious Goose Flesh Skin: 0=Smooth Skin COWS Score: 14 Admission [facility] Chief Complaint: Here for heroin withdrawal. Allergies/Adverse Reactions: Allergies Allergy/AdvReac Type Severity Reaction Status Date / Time No Known Allergies Allergy Verified 06/19/18 14:24 History of Present Illness: Heroin use since age 20. Uses heroin intra-nasally. Last used earlier today. Nicotine use since age 23. Has decreased use significantly. Took street methadone 5 days ago. Denies being on a methadone program. Denies hx seizures or blackouts. Treated in past w/ Suboxone. but did not take as prescribed and had episodes of precipitated withdrawal. Longest length of sobriety was 1 year while on Suboxone. Hx: HTN and asthma. PDPM document in file. Exam Limitations: No Limitations - Ebola screening Have you traveled outside of the country in the last 21 days: No (N) Have you had contact with anyone from an Ebola affected area: No Have you been sick,other than usual withdrawal symptoms: No Do you have a fever: No - Review of Systems Constitutional: Diaphoresis EENT: reports: Blurred Vision (Reading glasses), Nose Congestion, Dental Problems (Upper and lower dentures) Respiratory: reports: No Symptoms reported, Other (Hx asthma. No recent exacerbations) Cardiac: reports: No Symptoms Reported GI: reports: Nausea : reports: No Symptoms Reported Musculoskeletal: reports: Joint Pain ((L) joint pain r/t fall. Was seen and x- rayed at [facility]) Integumentary: reports: No Symptoms Reported Neuro: reports: Tremors (r/t withdrawal) Endocrine: reports: No Symptoms Reported Hematology: reports: No Symptoms Reported Psychiatric: reports: Judgement Intact, Mood/Affect Appropiate, Orientated x3 ( Off by 2 days), Agitated, Anxious, Depressed (Denies thoughts of harming self or others) Patient History - Patient Medical History Hx Anemia: No Hx Asthma: Yes Hx Chronic Obstructive Pulmonary Disease (COPD): Yes Hx Cancer: No Hx Cardiac Disorders: No Hx Congestive Heart Failure: No Hx Hypertension: Yes Hx Hypercholesterolemia: No Hx Pacemaker: No HX Cerebrovascular Accident: No Hx Seizures: No Hx Dementia: No Hx Diabetes: No Hx Gastrointestinal Disorders: No Hx Liver Disease: No Hx Genitourinary Disorders: No Hx Sexually Transmitted Disorders: No Hx Renal Disease (ESRD): No Hx Thyroid Disease: No Hx Human Immunodeficiency Virus (HIV): No (NEGATIVE HX last 2016, declines further testing ) Hx Hepatitis C: No Hx Depression: Yes (no medication) Hx Suicide Attempt: No Hx Bipolar Disorder: No Hx Schizophrenia: No - Patient Surgical History Past Surgical History: Yes Hx Neurologic Surgery: No Hx Cataract Extraction: No Hx Cardiac Surgery: No Hx Lung Surgery: Yes (pneumothorax about 2005 left) Hx Breast Surgery: No Hx Breast Biopsy: No Hx Abdominal Surgery: No Hx Appendectomy: No Hx Cholecystectomy: No Hx Genitourinary Surgery: No Hx Section: No Hx Orthopedic Surgery: No Hx Hysterectomy: No Anesthesia Reaction: No - PPD History Previous Implant?: No (CXR @ [facility] 11/2017) Documented Results: Positive w/proof Implanted On Prior [facility] Admission?: No Results: positive PPD to be Administered?: No - Smoking Cessation Smoking history: Current every day smoker Have you smoked in the past 12 months: Yes Aproximately how many cigarettes per day: 4 Cigars Per Day: 0 Hx Chewing Tobacco Use: No Initiated information on smoking cessation: Yes 'Breaking Loose' booklet given: 06/19/18 - Substance & Tx. History Hx Alcohol Use: No Hx Substance Use: Yes Substance Use Type: Heroin Hx Substance Use Treatment: Yes (detox, rehabs, suboxone tx in past) - Substances Abused Heroin Route: SNIFF Frequency: Daily Amount used: 6 BAGS Age of first use: 20 Date of Last Use: 06/19/18 Family Disease History - Family Disease History Family Disease History: Diabetes: Son, Heart Disease: Father (), Mother () Admission Physical Exam BHS - Vital Signs Vital Signs: Vital Signs - 24 hr 06/19/18 12:12 Temperature 98.6 F Pulse Rate 83 Respiratory 19 Rate Blood Pressure 133/86 - Physical General Appearance: Yes: Appropriately Dressed, Intoxicated, Anxious HEENTM: Yes: EOMI, Hearing grossly Normal, Normal ENT Inspection, SARAH BETH, Nasal Congestion (Swelling nasal membranes) Respiratory: Yes: Chest Non-Tender, Lungs Clear, Normal Breath Sounds, No Respiratory Distress Neck: Yes: No masses,lesions,Nodules, Supple Breast: Yes: Breast Exam Deferred Cardiology: Yes: Regular Rhythm, Regular Rate, S1, S2 Abdominal: Yes: Non Tender, Flat, Soft, Increased Bowel Sounds Genitourinary: Yes: Within Normal Limits Back: Yes: Normal Inspection Musculoskeletal: Yes: Joint Stiffness ((L) shoulder w/ decreased ROM. No swelling. Able to lift only 90 degrees before c/o tenderness) Extremities: Yes: Normal Capillary Refill, Tremors Neurological: Yes: supervisor dock II-XII NML intact, Fully Oriented, Alert, Motor Strength 5/5, Normal Mood/Affect Integumentary: Yes: Normal Color, Dry, Warm Lymphatic: Yes: Within Normal Limits - Diagnostic (1) Nicotine dependence Current Visit: Yes Status: Chronic Qualifiers: Nicotine product type: cigarettes Substance use status: uncomplicated Qualified Code(s): F17.210 - Nicotine dependence, cigarettes, uncomplicated (2) Opioid dependence with withdrawal Current Visit: Yes Status: Acute (3) Asthma Current Visit: Yes Status: Chronic Qualifiers: Asthma severity: mild Asthma persistence: unspecified Asthma complication type: uncomplicated Qualified Code(s): J45.909 - Unspecified asthma, uncomplicated (4) HTN (hypertension) Current Visit: Yes Status: Chronic Qualifiers: Hypertension type: essential hypertension Cleared for Admission S - Detox or Rehab [facility] Level of Care: Medically Managed Detox Regimen/Protocol: Methadone S Breath Alcohol Content Breath Alcohol Content: 0 Urine Drug Screen - Results Drug Screen Negative: No Urine Drug Screen Results: OPI-Opiates
[2018-06-19] MEDS ORDERED: ACETAMINOPHEN 325 MG TABLET (FP) PO PRN (15:56)
[2018-06-19] MEDS ORDERED: LOPERAMIDE HCL 2 MG CAPSULE PO PRN (15:56)
[2018-06-19] MEDS ORDERED: guaiFENesin/D-METHORPHAN HB 10 ML UNIT-DOSE CUPS PO PRN (15:56)
[2018-06-19] MEDS ORDERED: MAGNESIUM CITRATE 300 ML BOTTLE PO PRN (15:56)
[2018-06-19] MEDS ORDERED: IBUPROFEN 400 MG TABLET (FP) PO PRN (15:56)
[2018-06-19] MEDS ORDERED: P-EPHED 60MG/TRIPROLIDI 2.5MG TABLET PO PRN (15:56)
[2018-06-19] MEDS ORDERED: NICOTINE POLACRILEX 2 MG GUM BC PRN (15:56)
[2018-06-19] MEDS ORDERED: MENTHOL/PHENOL 1 EACH UD MM PRN (15:56)
[2018-06-19] MEDS ORDERED: MAGNESIUM HYDROX 2400MG/30ML ORAL SUSPENSION 30 ML CUP PO PRN (15:56)
[2018-06-19] MEDS ORDERED: ALBUTEROL SO4 8 GM HFA INHALER IH PRN (15:58)
[2018-06-19] MEDS ORDERED: METHADONE HCL 10 MG TABLET (FOR DETOX USE ONLY) PO ONE ×2 (16:30→23:00)
[2018-06-19] MEDS: VITAMINS A AND D TOPICAL OINTMENT 60 GM TUBE TP SCH (23:46)
[2018-06-19] MEDS: THIAMINE HCL 100 MG TABLET (FP) PO SCH (23:47)
[2018-06-20 00:54] LABS: URINE APPEARANCE CLEAR; URINE BILIRUBIN NEGATIVE (<2.0 mg/dL); URINE COLOR YELLOW; URINE GLUCOSE (UA) NEGATIVE (NEGATIVE); URINE KETONE NEGATIVE (NEGATIVE); URINE LEUK ESTERASE NEGATIVE (NEGATIVE); URINE NITRITE NEGATIVE (NEGATIVE); URINE PROTEIN NEGATIVE (NEGATIVE); URINE UROBILINOGEN NEGATIVE mg/dL (0.2-1.0)
[2018-06-20] MEDS: VITAMINS A AND D TOPICAL OINTMENT 60 GM TUBE TP SCH ×4 (01:14→22:25)
--- NOTE | 2018-06-20 08:47 | CONSULT ---
[facility] Psychiatric Consult - Data Date of interview: 06/20/18 Admission source: [facility] Identifying data: This is 77 years old male, father of two, living alone , on SSI. with no psychiatric hospitalization history, is reporting Heroin withdrawal symptoms and seeking for datox. Uses heroin intra-nasally. Last used earlier today. Nicotine use since age 23. Has decreased use significantly. Took street methadone 5 days ago. Denies being on a methadone program. Denies hx seizures or blackouts. Treated in past w/ Suboxone. but did not take as prescribed and had episodes of precipitated withdrawal. Longest length of sobriety was 1 year while on Suboxone. Hx: HTN and asthma. Substance Abuse History: Heroin use since age 20. Uses heroin intra-nasally. Last used earlier today. Nicotine use since age 23. Has decreased use significantly. Took street methadone 5 days ago. Denies being on a methadone program. Denies hx seizures or blackouts. Heroin use since age 20. Uses heroin intra-nasally. Last used earlier today. Nicotine use since age 23. Has decreased use significantly. Took street methadone 5 days ago. Denies being on a methadone program. Denies hx seizures or blackouts. Treated in past w/ Suboxone. but did not take as prescribed and had episodes of precipitated withdrawal. Longest length of sobriety was 1 year while on Suboxone. Treated in past w/ Suboxone. but did not take as prescribed and had episodes of precipitated withdrawal. Longest length of sobriety was 1 year while on Suboxone. Medical History: HTN, Asthma history Psychiatric History: Patient reports history of insomnia and anxiety, reports no psychiatric hospitalization bistory, asking for sleeping medications. Denies suicidal and homicidal history Physical/Sexual Abuse/Trauma History: Denies Additional Comment: Trazodone 50mg po qhs Mental Status Exam - Mental Status Exam Alert and Oriented to: Person Cognitive Function: Fair Patient Appearance: Well Groomed Mood: Apprehensive Affect: Mood Congruent Patient Behavior: Cooperative Speech Pattern: Appropriate Voice Loudness: Normal Thought Process: Goal Oriented Thought Disorder: Being Controlled Hallucinations: Denies Suicidal Ideation: Denies Homicidal Ideation: Denies Insight/Judgement: Fair Sleep: Difficulty falling asleep Appetite: Weight loss Muscle strength/Tone: Mild Hypotonicity Gait/Station: Normal Additional Comments: Trazodone 50mg po qhs Psychiatric Findings - Problem List ([place] 1, 2,3) (1) Opioid dependence with withdrawal Current Visit: Yes Status: Acute (2) HTN (hypertension) Current Visit: Yes Status: Chronic Qualifiers: Hypertension type: essential hypertension (3) Nicotine dependence Current Visit: Yes Status: Chronic Qualifiers: Nicotine product type: cigarettes Substance use status: uncomplicated Qualified Code(s): F17.210 - Nicotine dependence, cigarettes, uncomplicated (4) Cannabis dependence, uncomplicated Current Visit: No Status: Acute (5) Drug-induced mood disorder Current Visit: No Status: Acute (6) PPD positive Current Visit: No Status: Acute (7) COPD (chronic obstructive pulmonary disease) with emphysema Current Visit: No Status: Chronic Qualifiers: Emphysema type: unspecified Qualified Code(s): J43.9 - Emphysema, unspecified - Initial Treatment Plan Initial Treatment Plan: Trazodone 50mg po qhs
[2018-06-20] MEDS ORDERED: METHADONE HCL 10 MG TABLET (FOR DETOX USE ONLY) PO ONE (10:00)
--- NOTE | 2018-06-20 10:02 | EKG ---
Test Reason : Blood Pressure : / mmHG Vent. Rate : 067 BPM Atrial Rate : 067 BPM P-R Int : 152 ms QRS Dur : 070 ms QT Int : 370 ms P-R-T Axes : 061 072 063 degrees QTc Int : 390 ms NORMAL SINUS RHYTHM ST ELEVATION, CONSIDER EARLY REPOLARIZATION, PERICARDITIS, OR INJURY ABNORMAL ECG WHEN COMPARED WITH ECG OF 14-APR-2018 20:54, NO SIGNIFICANT CHANGE WAS FOUND Confirmed by DANIELLE LALA MD ([id number]) on 06/20/2018 10:02:20 AM Referred By: Confirmed By:DANIELLE LALA MD
[2018-06-20] MEDS: ASPIRIN 81 MG CHEWABLE TABLETS PO SCH (10:14)
[2018-06-20] MEDS: PRENATAL VITAMINS W/ FOLIC ACID TABLET (FP) PO SCH (10:14)
[2018-06-20] MEDS: ENALAPRIL MALEATE 10 MG TABLET (FP) PO SCH (10:14)
[2018-06-20 10:31] LABS: HEMATOCRIT 42.1 % (35.4-49); HEMOGLOBIN 14.1 GM/dL (11.7-16.9); MCH 33.6 pg (25.7-33.7); MCHC 33.5 g/dl (32.0-35.9); MEAN CELL VOLUME 100.2 fl (80-96); MEAN PLT VOLUME 8.6 fl (7.5-11.1); PLATELET COUNT 225 K/MM3 (134-434); RBC 4.21 M/mm3 (4.00-5.60); RDW 12.4 % (11.9-15.9); WHITE BLOOD COUNT 4.2 K/mm3 (4.0-10.0)
[2018-06-20] MEDS: NIFEdipine E.R 60 MG TABLET (UD) PO SCH (11:01)
[2018-06-20 11:04] LABS: CHLORIDE 102 mmol/L (98-107); POTASSIUM 4.3 mmol/L (3.5-5.1); SODIUM 139 mmol/L (136-145)
[2018-06-20 11:20] LABS: ALBUMIN 3.4 g/dl (3.4-5.0); ALK PHOS 88 U/L (45-117); ANION GAP 11 MMOL/L (8-16); BLOOD UREA NITROGEN 16 mg/dL (7-18); CO2 26 mmol/L (21-32); CREATININE 0.9 mg/dL (0.55-1.3); GLUCOSE,RANDOM 99 mg/dL (74-106); SGOT/AST 22 U/L (15-37); SGPT/ALT 23 U/L (13-61); TOT PROT 7.1 g/dl (6.4-8.2)
--- NOTE | 2018-06-20 17:42 | PN ---
BHS COWS - Scale Resting Pulse: 0= [place] 80 or Below Sweatin= Chills/Flushing Restless Observation: 1= Difficult to Sit Still Pupil Size: 1= Pupils >than Normal Bone or Joint Aches: 2= Severe Diffuse Aches Runny Nose/ Eye Tearin= Nasal Congestion GI Upset > 30mins: 2= Nausea/Diarrhea Tremor Observation of Outstretched Hands: 2= Slight Tremor Visible Yawning Observation: 2= >3x During Session Anxiety or Irritability: 2=Irritable/Anxious Goose Flesh Skin: 0=Smooth Skin COWS Score: 14 BHS Progress Note (SOAP) Subjective: joint paint body ache muscle cramp sweat tremor Objective: 06/20/18 17:44 Vital Signs Temperature 98.1 F 06/20/18 17:39 Pulse Rate 72 06/20/18 17:39 Respiratory Rate 19 06/20/18 17:39 Blood Pressure 146/78 06/20/18 17:39 O2 Sat by Pulse Oximetry (%) Laboratory Last Values WBC 4.2 K/mm3 (4.0-10.0) 06/20/18 08:00 RBC 4.21 M/mm3 (4.00-5.60) 06/20/18 08:00 Hgb 14.1 GM/dL (11.7-16.9) 06/20/18 08:00 Hct 42.1 % (35.4-49) 06/20/18 08:00 MCV 100.2 fl (80-96) H 06/20/18 08:00 MCH 33.6 pg (25.7-33.7) 06/20/18 08:00 MCHC 33.5 g/dl (32.0-35.9) 06/20/18 08:00 RDW 12.4 % (11.9-15.9) 06/20/18 08:00 Plt Count 225 K/MM3 (134-434) 06/20/18 08:00 MPV 8.6 fl (7.5-11.1) 06/20/18 08:00 Sodium 139 mmol/L (136-145) 06/20/18 08:00 Potassium 4.3 mmol/L (3.5-5.1) 06/20/18 08:00 Chloride 102 mmol/L (98-107) 06/20/18 08:00 Carbon Dioxide 26 mmol/L (21-32) 06/20/18 08:00 Anion Gap 11 MMOL/L (8-16) 06/20/18 08:00 BUN 16 mg/dL (7-18) 06/20/18 08:00 Creatinine 0.9 mg/dL (0.55-1.3) 06/20/18 08:00 Creat Clearance w eGFR > 60 (>60) 06/20/18 08:00 Random Glucose 99 mg/dL (74-106) 06/20/18 08:00 Calcium 9.0 mg/dL (8.5-10.1) 06/20/18 08:00 Total Bilirubin 1.0 mg/dL (0.2-1.0) 06/20/18 08:00 AST 22 U/L (15-37) 06/20/18 08:00 ALT 23 U/L (13-61) 06/20/18 08:00 Alkaline Phosphatase 88 U/L (45-117) 06/20/18 08:00 Total Protein 7.1 g/dl (6.4-8.2) 06/20/18 08:00 Albumin 3.4 g/dl (3.4-5.0) 06/20/18 08:00 Urine Color Yellow 06/19/18 23:29 Urine Appearance Clear 06/19/18 23:29 Urine pH 5.0 (5.0-8.0) 06/19/18 23:29 Ur Specific [place] 1.017 (1.001-1.035) 06/19/18 23:29 Urine Protein Negative (NEGATIVE) 06/19/18 23:29 Urine Glucose (UA) Negative (NEGATIVE) 06/19/18 23:29 Urine Ketones Negative (NEGATIVE) 06/19/18 23:29 Urine Blood Negative (NEGATIVE) 06/19/18 23:29 Urine Nitrite Negative (NEGATIVE) 06/19/18 23:29 Urine Bilirubin Negative (<2.0 mg/dL) 06/19/18 23:29 Urine Urobilinogen Negative mg/dL (0.2-1.0) 06/19/18 23:29 Ur Leukocyte Esterase Negative (NEGATIVE) 06/19/18 23:29 RPR Titer Nonreactive (NONREACTIVE) 06/20/18 08:00 lab noted long history of hypertension average 140/90 doing well on nifedipine and enalapril 06/20/18 17:46 06/20/18 17:47 Assessment: 06/20/18 17:47 withdrawal sx hypertension Plan: continue detox begin metoprolol
[2018-06-20] MEDS: traZODone HCL 50 MG TABLET (FP) PO SCH (22:24)
[2018-06-20] MEDS: THIAMINE HCL 100 MG TABLET (FP) PO SCH (22:24)
[2018-06-20] MEDS: MELATONIN 5 MG TABLETS PO PRN (22:24)
[2018-06-21] MEDS: VITAMINS A AND D TOPICAL OINTMENT 60 GM TUBE TP SCH ×4 (06:22→18:14)
[2018-06-21] MEDS ORDERED: METHADONE HCL 5 MG TABLET (FOR DETOX USE ONLY) PO ONE (10:00)
[2018-06-21] MEDS: ENALAPRIL MALEATE 10 MG TABLET (FP) PO SCH (10:45)
[2018-06-21] MEDS: ASPIRIN 81 MG CHEWABLE TABLETS PO SCH (10:46)
[2018-06-21] MEDS: diazePAM 5 MG TABLET PO PRN (10:46)
[2018-06-21] MEDS: NIFEdipine E.R 60 MG TABLET (UD) PO SCH (10:46)
[2018-06-21] MEDS: PRENATAL VITAMINS W/ FOLIC ACID TABLET (FP) PO SCH (10:46)
[2018-06-21] MEDS: METOPROLOL TARTRATE 50 MG TABLET (FP) PO SCH (10:46)
--- NOTE | 2018-06-21 16:36 | PN ---
BHS COWS - Scale Resting Pulse: 1= [place] 81-100 Sweatin= Chills/Flushing Restless Observation: 1= Difficult to Sit Still Pupil Size: 1= Pupils >than Normal Bone or Joint Aches: 2= Severe Diffuse Aches Runny Nose/ Eye Tearin= Nasal Congestion GI Upset > 30mins: 1= Stomach Cramp Tremor Observation of Outstretched Hands: 2= Slight Tremor Visible Yawning Observation: 1= 1-2x During Session Anxiety or Irritability: 2=Irritable/Anxious Goose Flesh Skin: 0=Smooth Skin COWS Score: 13 BHS Progress Note (SOAP) Subjective: body ache joints pain sweat tremor irritable Objective: 06/21/18 16:35 Vital Signs Temperature 98.2 F 06/21/18 13:54 Pulse Rate 70 06/21/18 13:54 Respiratory Rate 20 06/21/18 13:54 Blood Pressure 166/81 06/21/18 13:54 O2 Sat by Pulse Oximetry (%) Laboratory Last Values WBC 4.2 K/mm3 (4.0-10.0) 06/20/18 08:00 RBC 4.21 M/mm3 (4.00-5.60) 06/20/18 08:00 Hgb 14.1 GM/dL (11.7-16.9) 06/20/18 08:00 Hct 42.1 % (35.4-49) 06/20/18 08:00 MCV 100.2 fl (80-96) H 06/20/18 08:00 MCH 33.6 pg (25.7-33.7) 06/20/18 08:00 MCHC 33.5 g/dl (32.0-35.9) 06/20/18 08:00 RDW 12.4 % (11.9-15.9) 06/20/18 08:00 Plt Count 225 K/MM3 (134-434) 06/20/18 08:00 MPV 8.6 fl (7.5-11.1) 06/20/18 08:00 Sodium 139 mmol/L (136-145) 06/20/18 08:00 Potassium 4.3 mmol/L (3.5-5.1) 06/20/18 08:00 Chloride 102 mmol/L (98-107) 06/20/18 08:00 Carbon Dioxide 26 mmol/L (21-32) 06/20/18 08:00 Anion Gap 11 MMOL/L (8-16) 06/20/18 08:00 BUN 16 mg/dL (7-18) 06/20/18 08:00 Creatinine 0.9 mg/dL (0.55-1.3) 06/20/18 08:00 Creat Clearance w eGFR > 60 (>60) 06/20/18 08:00 Random Glucose 99 mg/dL (74-106) 06/20/18 08:00 Calcium 9.0 mg/dL (8.5-10.1) 06/20/18 08:00 Total Bilirubin 1.0 mg/dL (0.2-1.0) 06/20/18 08:00 AST 22 U/L (15-37) 06/20/18 08:00 ALT 23 U/L (13-61) 06/20/18 08:00 Alkaline Phosphatase 88 U/L (45-117) 06/20/18 08:00 Total Protein 7.1 g/dl (6.4-8.2) 06/20/18 08:00 Albumin 3.4 g/dl (3.4-5.0) 06/20/18 08:00 Urine Color Yellow 06/19/18 23:29 Urine Appearance Clear 06/19/18 23:29 Urine pH 5.0 (5.0-8.0) 06/19/18 23:29 Ur Specific [place] 1.017 (1.001-1.035) 06/19/18 23:29 Urine Protein Negative (NEGATIVE) 06/19/18 23:29 Urine Glucose (UA) Negative (NEGATIVE) 06/19/18 23:29 Urine Ketones Negative (NEGATIVE) 06/19/18 23:29 Urine Blood Negative (NEGATIVE) 06/19/18 23:29 Urine Nitrite Negative (NEGATIVE) 06/19/18 23:29 Urine Bilirubin Negative (<2.0 mg/dL) 06/19/18 23:29 Urine Urobilinogen Negative mg/dL (0.2-1.0) 06/19/18 23:29 Ur Leukocyte Esterase Negative (NEGATIVE) 06/19/18 23:29 RPR Titer Nonreactive (NONREACTIVE) 06/20/18 08:00 lab noted Assessment: 06/21/18 16:36 withdrawal sx Plan: continue detox
[2018-06-21] MEDS: MAG HYDROX/AL HYDROX/SIMETH 30 ML UNIT-DOSE CUP PO PRN (17:07)
[2018-06-21] MEDS: traZODone HCL 50 MG TABLET (FP) PO SCH (22:24)
[2018-06-21] MEDS: THIAMINE HCL 100 MG TABLET (FP) PO SCH (22:24)
[2018-06-21] MEDS: MELATONIN 5 MG TABLETS PO PRN (22:24)
[2018-06-22] MEDS: VITAMINS A AND D TOPICAL OINTMENT 60 GM TUBE TP SCH ×3 (06:29→18:51)
[2018-06-22] MEDS: diazePAM 5 MG TABLET PO PRN (06:32)
--- NOTE | 2018-06-22 09:38 | PN ---
BHS Progress Note (SOAP) Subjective: C/o nausea w/ dry heaves. Had a BM after 3 days which was watery w/o a lot of fecal matter.. Objective: A&O x 3. Abd soft and non-tender. BS+. Vital Signs 06/22/18 06/22/18 06:00 09:46 Temperature 98.1 F 97.5 F L Pulse Rate 79 75 Respiratory 18 16 Rate Blood Pressure 169/85 151/87 Laboratory Last Values WBC 4.2 K/mm3 (4.0-10.0) 06/20/18 08:00 RBC 4.21 M/mm3 (4.00-5.60) 06/20/18 08:00 Hgb 14.1 GM/dL (11.7-16.9) 06/20/18 08:00 Hct 42.1 % (35.4-49) 06/20/18 08:00 MCV 100.2 fl (80-96) H 06/20/18 08:00 MCH 33.6 pg (25.7-33.7) 06/20/18 08:00 MCHC 33.5 g/dl (32.0-35.9) 06/20/18 08:00 RDW 12.4 % (11.9-15.9) 06/20/18 08:00 Plt Count 225 K/MM3 (134-434) 06/20/18 08:00 MPV 8.6 fl (7.5-11.1) 06/20/18 08:00 Sodium 139 mmol/L (136-145) 06/20/18 08:00 Potassium 4.3 mmol/L (3.5-5.1) 06/20/18 08:00 Chloride 102 mmol/L (98-107) 06/20/18 08:00 Carbon Dioxide 26 mmol/L (21-32) 06/20/18 08:00 Anion Gap 11 MMOL/L (8-16) 06/20/18 08:00 BUN 16 mg/dL (7-18) 06/20/18 08:00 Creatinine 0.9 mg/dL (0.55-1.3) 06/20/18 08:00 Creat Clearance w eGFR > 60 (>60) 06/20/18 08:00 Random Glucose 99 mg/dL (74-106) 06/20/18 08:00 Calcium 9.0 mg/dL (8.5-10.1) 06/20/18 08:00 Total Bilirubin 1.0 mg/dL (0.2-1.0) 06/20/18 08:00 AST 22 U/L (15-37) 06/20/18 08:00 ALT 23 U/L (13-61) 06/20/18 08:00 Alkaline Phosphatase 88 U/L (45-117) 06/20/18 08:00 Total Protein 7.1 g/dl (6.4-8.2) 06/20/18 08:00 Albumin 3.4 g/dl (3.4-5.0) 06/20/18 08:00 Urine Color Yellow 06/19/18 23:29 Urine Appearance Clear 06/19/18 23:29 Urine pH 5.0 (5.0-8.0) 06/19/18 23:29 Ur Specific [place] 1.017 (1.001-1.035) 06/19/18 23:29 Urine Protein Negative (NEGATIVE) 06/19/18 23:29 Urine Glucose (UA) Negative (NEGATIVE) 06/19/18 23:29 Urine Ketones Negative (NEGATIVE) 06/19/18 23:29 Urine Blood Negative (NEGATIVE) 06/19/18 23:29 Urine Nitrite Negative (NEGATIVE) 06/19/18 23:29 Urine Bilirubin Negative (<2.0 mg/dL) 06/19/18 23:29 Urine Urobilinogen Negative mg/dL (0.2-1.0) 06/19/18 23:29 Ur Leukocyte Esterase Negative (NEGATIVE) 06/19/18 23:29 RPR Titer Nonreactive (NONREACTIVE) 06/20/18 08:00 Labs reviewed. Assessment: Withdrawal symptoms. R/o obstipation/constipation Plan: Continue detox Miralax x1 dose
[2018-06-22] MEDS ORDERED: METHADONE HCL 5 MG TABLET (FOR DETOX USE ONLY) PO ONE (10:00)
[2018-06-22] MEDS: ASPIRIN 81 MG CHEWABLE TABLETS PO SCH (10:07)
[2018-06-22] MEDS: METOPROLOL TARTRATE 50 MG TABLET (FP) PO SCH (10:08)
[2018-06-22] MEDS: NIFEdipine E.R 60 MG TABLET (UD) PO SCH (10:08)
[2018-06-22] MEDS: ENALAPRIL MALEATE 10 MG TABLET (FP) PO SCH (10:08)
[2018-06-22] MEDS: PRENATAL VITAMINS W/ FOLIC ACID TABLET (FP) PO SCH (10:08)
[2018-06-22] MEDS: MAG HYDROX/AL HYDROX/SIMETH 30 ML UNIT-DOSE CUP PO PRN (10:13)
[2018-06-22] MEDS ORDERED: POLYETHYLENE GLYCOL 3350 119 GM BTL PO ONE (14:00)
[2018-06-22] MEDS: traZODone HCL 50 MG TABLET (FP) PO SCH (22:15)
[2018-06-22] MEDS: THIAMINE HCL 100 MG TABLET (FP) PO SCH (22:15)
[2018-06-23] MEDS: VITAMINS A AND D TOPICAL OINTMENT 60 GM TUBE TP SCH ×3 (00:03→08:03)
[2018-06-23] MEDS ORDERED: METHADONE HCL 5 MG TABLET (FOR DETOX USE ONLY) PO ONE (08:25)
--- NOTE | 2018-06-23 08:26 | DS ---
[facility] Detox Discharge Summary Admission Date: 06/19/18 Discharge Date: 06/23/18 - History Present History: Opioid Dependence Additional Comments: 77 years old male admitted on 06/19/18 for opiate withdrawal sx feeling better no sweat no gi distress no tremor sleep better at night wants to go to [facility] for rehab alert oriented x 3 no acute distress - Physical Exam Results Vital Signs: Vital Signs Temperature 97.9 F 06/23/18 06:18 Pulse Rate 69 06/23/18 06:18 Respiratory Rate 20 06/23/18 06:18 Blood Pressure 159/96 06/23/18 06:18 O2 Sat by Pulse Oximetry (%) Pertinent Admission Physical Exam Findings: opiate withdrawal sx Vital Signs Temperature 97.7 F 06/23/18 10:05 Pulse Rate 72 06/23/18 10:05 Respiratory Rate 20 06/23/18 10:05 Blood Pressure 169/80 06/23/18 10:05 O2 Sat by Pulse Oximetry (%) Laboratory Last Values WBC 4.2 K/mm3 (4.0-10.0) 06/20/18 08:00 RBC 4.21 M/mm3 (4.00-5.60) 06/20/18 08:00 Hgb 14.1 GM/dL (11.7-16.9) 06/20/18 08:00 Hct 42.1 % (35.4-49) 06/20/18 08:00 MCV 100.2 fl (80-96) H 06/20/18 08:00 MCH 33.6 pg (25.7-33.7) 06/20/18 08:00 MCHC 33.5 g/dl (32.0-35.9) 06/20/18 08:00 RDW 12.4 % (11.9-15.9) 06/20/18 08:00 Plt Count 225 K/MM3 (134-434) 06/20/18 08:00 MPV 8.6 fl (7.5-11.1) 06/20/18 08:00 Sodium 139 mmol/L (136-145) 06/20/18 08:00 Potassium 4.3 mmol/L (3.5-5.1) 06/20/18 08:00 Chloride 102 mmol/L (98-107) 06/20/18 08:00 Carbon Dioxide 26 mmol/L (21-32) 06/20/18 08:00 Anion Gap 11 MMOL/L (8-16) 06/20/18 08:00 BUN 16 mg/dL (7-18) 06/20/18 08:00 Creatinine 0.9 mg/dL (0.55-1.3) 06/20/18 08:00 Creat Clearance w eGFR > 60 (>60) 06/20/18 08:00 Random Glucose 99 mg/dL (74-106) 06/20/18 08:00 Calcium 9.0 mg/dL (8.5-10.1) 06/20/18 08:00 Total Bilirubin 1.0 mg/dL (0.2-1.0) 06/20/18 08:00 AST 22 U/L (15-37) 06/20/18 08:00 ALT 23 U/L (13-61) 06/20/18 08:00 Alkaline Phosphatase 88 U/L (45-117) 06/20/18 08:00 Total Protein 7.1 g/dl (6.4-8.2) 06/20/18 08:00 Albumin 3.4 g/dl (3.4-5.0) 06/20/18 08:00 Urine Color Yellow 06/19/18 23:29 Urine Appearance Clear 06/19/18 23:29 Urine pH 5.0 (5.0-8.0) 06/19/18 23:29 Ur Specific Barney 1.017 (1.001-1.035) 06/19/18 23:29 Urine Protein Negative (NEGATIVE) 06/19/18 23:29 Urine Glucose (UA) Negative (NEGATIVE) 06/19/18 23:29 Urine Ketones Negative (NEGATIVE) 06/19/18 23:29 Urine Blood Negative (NEGATIVE) 06/19/18 23:29 Urine Nitrite Negative (NEGATIVE) 06/19/18 23:29 Urine Bilirubin Negative (<2.0 mg/dL) 06/19/18 23:29 Urine Urobilinogen Negative mg/dL (0.2-1.0) 06/19/18 23:29 Ur Leukocyte Esterase Negative (NEGATIVE) 06/19/18 23:29 RPR Titer Nonreactive (NONREACTIVE) 06/20/18 08:00 lab noted - Treatment Hospital Course: Detox Protocol Followed, Detoxed Safely, Responded well, Discharged Condition Good, Rehab Referral Accepted Patient has Accepted a Re[facility] Referral [facility]: [facility] - Medication Discharge Medications: Ambulatory Orders Albuterol Sulfate [Proair Hfa -] 2 inh PO QID PRN 11/20/15 Aspirin [ASA -] 81 mg PO DAILY #30 tab 08/04/17 Enalapril Maleate [Vasotec] 20 mg PO DAILY #30 tablet 08/04/17 Nifedipine ER [Procardia XL -] 60 mg PO DAILY #30 tab.er.24 08/04/17 traZODone HCL [Desyrel -] 50 mg PO HS #30 tablet 06/20/18 - Diagnosis (1) Opioid dependence with withdrawal Status: Acute (2) Weight loss Status: Acute (3) Asthma Status: Chronic Qualifiers: Asthma severity: mild Asthma persistence: unspecified Asthma complication type: uncomplicated Qualified Code(s): J45.909 - Unspecified asthma, uncomplicated (4) COPD (chronic obstructive pulmonary disease) with emphysema Status: Chronic Qualifiers: Emphysema type: unspecified Qualified Code(s): J43.9 - Emphysema, unspecified (5) HTN (hypertension) Status: Chronic Qualifiers: Hypertension type: essential hypertension (6) Nicotine dependence Status: Acute Qualifiers: Nicotine product type: cigarettes Substance use status: in withdrawal Qualified Code(s): F17.213 - Nicotine dependence, cigarettes, with withdrawal - AMA Did Patient Leave Against Medical Advice: No
[2018-06-23] MEDS: ASPIRIN 81 MG CHEWABLE TABLETS PO SCH (09:37)
[2018-06-23] MEDS: ENALAPRIL MALEATE 10 MG TABLET (FP) PO SCH (09:37)
[2018-06-23] MEDS: METOPROLOL TARTRATE 50 MG TABLET (FP) PO SCH (09:37)
[2018-06-23] MEDS: PRENATAL VITAMINS W/ FOLIC ACID TABLET (FP) PO SCH (09:39)
[2018-06-23] MEDS: NIFEdipine E.R 60 MG TABLET (UD) PO SCH (09:39)
[2018-06-23] MEDS ORDERED: METHADONE HCL 10 MG TABLET (FOR DETOX USE ONLY) PO ONE (10:00)
[2018-06-23 10:06] VITALS: BP 169/80; PULSE 72; TEMP 97.7
[2018-06-24] MEDS ORDERED: METHADONE HCL 5 MG TABLET (FOR DETOX USE ONLY) PO ONE (06:00)
== END 2018-06-23 09:57 | disposition home or self-care (01) | DRG 897 ==
LOC: YASAS 11:35 → Y6N 16:25
PROC: HZ2ZZZZ Detoxification Services for Substance Abuse Treatment (ICD-10-PCS; principal; 2018-06-19)
DX: F11.23 Opioid dependence with withdrawal (principal); F12.20 Cannabis dependence, uncomplicated; F17.213 Nicotine dependence, cigarettes, with withdrawal; F19.24 Other psychoactive substance dependence with psychoactive substance-induced mood disorder; F32.9 Major depressive disorder, single episode, unspecified; I10 Essential (primary) hypertension; J43.9 Emphysema, unspecified; J45.909 Unspecified asthma, uncomplicated; R76.11 Nonspecific reaction to tuberculin skin test without active tuberculosis; R63.4 Abnormal weight loss; Z68.24 Body mass index [BMI] 24.0-24.9, adult
CPT/HCPCS: 36415; 80053; 81003; 85027; 86593; 93005; 93010

== ENCOUNTER 2018-10-16 08:46 | Inpatient (IN) | payer OTHER ==
[2018-10-16 09:20] VITALS: BMI 25.7
--- NOTE | 2018-10-16 11:08 | HP ---
COWS - Scale Resting Pulse: 1= MS 81-100 Sweatin= No chills or Flushing Restless Observation: 0= Sits Still Pupil Size: 0= Normal to Room Light Bone or Joint Aches: 1= Mild Discomfort Runny Nose/ Eye Tearin= Nasal Congestion GI Upset > 30mins: 1= Stomach Cramp Tremor Observation: 2= Slight Tremor Visible Yawning Observation: 1= 1-2x During Session Anxiety or Irritability: 2=Irritable/Anxious Goose Flesh Skin: 0=Smooth Skin COWS Score: 9 CIWA Score Nausea/Vomitin Muscle Tremors: 4-Moderate,w/Arms Extend Anxiety: 3 Agitation: 2 Paroxysmal Sweats: 1-Minimal Palms Moist Orientation: 0-Oriented Tacttile Disturbances: 0-None Auditory Disturbances: 0-None Visual Disturbances: 0-None Headache: 0-None Present CIWA-Ar Total Score: 13 - Admission Criteria OASAS Guidelines: Admission for Medically Managed Detox: Requires at least one of the followin. CIWA greater than 12 2. Seizures within the past 24 hours 3. Delirium tremens within the past 24 hours 4. Hallucinations within the past 24 hours 5. Acute intervention needed for co occurring medical disorder 6. Acute intervention needed for co occurring psychiatric disorder 7. Severe withdrawal that cannot be handled at a lower level of care (continued vomiting, continued diarrhea, abnormal vital signs) requiring intravenous medication and/or fluids 8. Admission ROS S - [facility] Chief Complaint: "I want to come, I just feel its time to stop" Allergies/Adverse Reactions: Allergies Allergy/AdvReac Type Severity Reaction Status Date / Time No Known Allergies Allergy Verified 10/16/18 09:36 History of Present Illness: 78 y/o man known to this program, last visit 06/2018. Last used heroin this morning and alcohol this morning. Utox positive for methadone he states he takes street methadone, not in a program. Denies hx of seizure nor blackouts No remarkable sober period. Declines NRT, stating he has not smoked in 4 wks Denies Hx of HI/SI, auditory nor visual hallucination, denies current SI Hx of COPD, HTN denies psych hx. Exam Limitations: No Limitations - Ebola screening Have you traveled outside of the country in the last 21 days: No (N) Have you had contact with anyone from an Ebola affected area: No Have you been sick,other than usual withdrawal symptoms: No Do you have a fever: No - Review of Systems Constitutional: No Symptoms Reported EENT: reports: Blurred Vision (uses glasses to read), Dental Problems (has top and bottom dentures) Respiratory: reports: Shortness of Breath (Hx of COPD) Cardiac: reports: No Symptoms Reported GI: reports: Constipated : reports: Other (hesitancy - not on meds) Musculoskeletal: reports: Joint Pain (L shoulder s/p fall in 01/19) Integumentary: reports: No Symptoms Reported Neuro: reports: Tremors Endocrine: reports: No Symptoms Reported Hematology: reports: No Symptoms Reported Psychiatric: reports: Mood/Affect Appropiate, Orientated x3 Other Systems: Reviewed and Negative Patient History - Patient Medical History Hx Anemia: No Hx Asthma: No Hx Chronic Obstructive Pulmonary Disease (COPD): Yes (ON MDI) Hx Cancer: No Hx Cardiac Disorders: No Hx Congestive Heart Failure: No Hx Hypertension: Yes (on meds) Hx Hypercholesterolemia: No Hx Pacemaker: No HX Cerebrovascular Accident: No Hx Seizures: No Hx Dementia: No Hx Diabetes: No Hx Gastrointestinal Disorders: No Hx Liver Disease: No Hx Genitourinary Disorders: No Hx Sexually Transmitted Disorders: No Hx Renal Disease (ESRD): No Hx Thyroid Disease: No Hx Human Immunodeficiency Virus (HIV): No (NEGATIVE HX last 2016, declines further testing ) Hx Hepatitis C: No Hx Depression: No (no medication) Hx Suicide Attempt: No Hx Bipolar Disorder: No Hx Schizophrenia: No - Patient Surgical History Past Surgical History: Yes Hx Neurologic Surgery: No Hx Cataract Extraction: No Hx Cardiac Surgery: No Hx Lung Surgery: Yes (pneumothorax about 2005 left) Hx Breast Surgery: No Hx Breast Biopsy: No Hx Abdominal Surgery: No Hx Appendectomy: No Hx Cholecystectomy: No Hx Genitourinary Surgery: No Hx Section: No Hx Orthopedic Surgery: No Hx Hysterectomy: No Anesthesia Reaction: No - PPD History Previous Implant?: Yes Documented Results: Positive w/proof Results: positive - Reproductive History Patient is a Female of Child Bearing Age (11 -55 yrs old): No - Smoking Cessation Smoking history: Current every day smoker Have you smoked in the past 12 months: Yes Aproximately how many cigarettes per day: 4 Cigars Per Day: 0 Hx Chewing Tobacco Use: No Initiated information on smoking cessation: Yes 'Breaking Loose' booklet given: 10/16/18 - Substance & Tx. History Hx Alcohol Use: Yes - Substances Abused Heroin Route: Inhalation Frequency: Daily Amount used: 6-7 bags Age of first use: 27 Date of Last Use: 10/16/18 Alcohol Route: Oral Frequency: Daily Amount used: 1/2 pint of luz marina Age of first use: 20 Date of Last Use: 10/15/18 Family Disease History - Family Disease History Family Disease History: Diabetes: Son, Heart Disease: Father (), Mother () Admission Physical Exam [facility] - Vital Signs Vital Signs: Vital Signs - 24 hr 10/16/18 09:16 Temperature 97.1 F L Pulse Rate 94 H Respiratory 20 Rate Blood Pressure 166/84 - Physical General Appearance: Yes: Mild Distress HEENTM: Yes: Nasal Congestion Respiratory: Yes: Decreased Breath Sounds, No Accessory Muscle Use Neck: Yes: No masses,lesions,Nodules, Trachea in good position Breast: Yes: Breast Exam Deferred Cardiology: Yes: Regular Rate Abdominal: Yes: Normal Bowel Sounds, Non Tender, Distended Genitourinary: Yes: Hesitency Back: Yes: Within Normal Limits Musculoskeletal: Yes: Gait Steady, Joint Stiffness (diminished ROM to L shoulder ) Extremities: Yes: Normal Capillary Refill, Normal Inspection, Tremors Neurological: Yes: Fully Oriented, Alert, Normal Mood/Affect Integumentary: Yes: Normal Color, Dry, Warm Lymphatic: Yes: Within Normal Limits - Diagnostic (1) Uncomplicated alcohol dependence Current Visit: Yes Status: Acute (2) Opioid dependence with withdrawal Current Visit: No Status: Acute (3) COPD (chronic obstructive pulmonary disease) with emphysema Current Visit: No Status: Chronic Qualifiers: Emphysema type: unspecified Qualified Code(s): J43.9 - Emphysema, unspecified (4) HTN (hypertension) Current Visit: No Status: Chronic Qualifiers: Hypertension type: essential hypertension Cleared for Admission [facility] - Detox or Rehab [facility] Level of Care: Medically Managed Detox Regimen/Protocol: Methadone/Librium [facility] Breath Alcohol Content Breath Alcohol Content: 0 Urine Drug Screen - Results Drug Screen Negative: No Urine Drug Screen Results: OPI-Opiates, MTD-Methadone, FEN-Fentanyl
[2018-10-16] MEDS ORDERED: MAGNESIUM CITRATE 300 ML BOTTLE PO PRN (11:34)
[2018-10-16] MEDS ORDERED: METHADONE HCL 10 MG TABLET (FOR DETOX USE ONLY) PO ONE ×2 (11:34→23:00)
[2018-10-16] MEDS ORDERED: guaiFENesin/D-METHORPHAN HB 10 ML UNIT-DOSE CUPS PO PRN (11:34)
[2018-10-16] MEDS ORDERED: ACETAMINOPHEN 325 MG TABLET (FP) PO PRN (11:34)
[2018-10-16] MEDS ORDERED: MAGNESIUM HYDROX 2400MG/30ML ORAL SUSPENSION 30 ML CUP PO PRN (11:34)
[2018-10-16] MEDS ORDERED: P-EPHED 60MG/TRIPROLIDI 2.5MG TABLET PO PRN (11:34)
[2018-10-16] MEDS ORDERED: LOPERAMIDE HCL 2 MG CAPSULE PO PRN (11:34)
[2018-10-16] MEDS ORDERED: MENTHOL/PHENOL 1 EACH UD MM PRN (11:34)
[2018-10-16] MEDS ORDERED: IBUPROFEN 400 MG TABLET (FP) PO PRN (11:34)
[2018-10-16] MEDS ORDERED: chlordiazePOXIDE HCL 25 MG CAPSULE PO PRN (11:34)
[2018-10-16] MEDS ORDERED: MAG HYDROX/AL HYDROX/SIMETH 30 ML UNIT-DOSE CUP PO PRN (11:34)
[2018-10-16] MEDS: NIFEdipine E.R 60 MG TABLET (UD) PO SCH (13:25)
[2018-10-16] MEDS: ENALAPRIL MALEATE 10 MG TABLET (FP) PO SCH (13:25)
[2018-10-16] MEDS: ASPIRIN 81 MG CHEWABLE TABLETS PO SCH (13:31)
[2018-10-16] MEDS: ALBUTEROL SO4 8 GM HFA INHALER IH PRN ×2 (15:45→22:32)
[2018-10-16] MEDS: chlordiazePOXIDE HCL 25 MG CAPSULE PO SCH ×2 (18:15→22:31)
[2018-10-16] MEDS ORDERED: MELATONIN 5 MG TABLETS PO PRN (22:00)
[2018-10-16] MEDS: THIAMINE HCL 100 MG TABLET (FP) PO SCH (22:30)
[2018-10-17] MEDS: chlordiazePOXIDE HCL 25 MG CAPSULE PO SCH ×4 (06:45→22:33)
[2018-10-17] MEDS: ALBUTEROL SO4 8 GM HFA INHALER IH PRN ×3 (06:46→22:34)
[2018-10-17] MEDS ORDERED: METHADONE HCL 10 MG TABLET (FOR DETOX USE ONLY) PO SCH (10:00)
[2018-10-17] MEDS: ASPIRIN 81 MG CHEWABLE TABLETS PO SCH (10:33)
[2018-10-17] MEDS: ENALAPRIL MALEATE 10 MG TABLET (FP) PO SCH (10:33)
[2018-10-17] MEDS: NIFEdipine E.R 60 MG TABLET (UD) PO SCH (10:33)
[2018-10-17] MEDS: PRENATAL VITAMINS W/ FOLIC ACID TABLET (FP) PO SCH (10:33)
[2018-10-17 10:35] LABS: ALBUMIN 3.4 g/dl (3.4-5.0); ALK PHOS 96 U/L (45-117); ANION GAP 7 MMOL/L (8-16); BILIRUBIN,TOTAL 0.9 mg/dL (0.2-1); BLOOD UREA NITROGEN 20 mg/dL (7-18); CALCIUM 9.1 mg/dL (8.5-10.1); CHLORIDE 102 mmol/L (98-107); CO2 29 mmol/L (21-32); CREATININE 1.1 mg/dL (0.55-1.3); GLUCOSE,RANDOM 109 mg/dL (74-106); HEMATOCRIT 42.1 % (35.4-49); HEMOGLOBIN 14.6 GM/dL (11.7-16.9); MCH 34.9 pg (25.7-33.7); MCHC 34.6 g/dl (32.0-35.9); MEAN CELL VOLUME 100.7 fl (80-96); MEAN PLT VOLUME 8.7 fl (7.5-11.1); PLATELET COUNT 268 K/MM3 (134-434); POTASSIUM 4.1 mmol/L (3.5-5.1); RBC 4.19 M/mm3 (4.00-5.60); RDW 13.5 % (11.9-15.9); SGOT/AST 25 U/L (15-37); SGPT/ALT 28 U/L (13-61); SODIUM 138 mmol/L (136-145); WHITE BLOOD COUNT 3.7 K/mm3 (4.0-10.0)
--- NOTE | 2018-10-17 15:09 | PN ---
[facility] CIWA - CIWA Score Nausea/Vomitin-No Nausea/No Vomiting Muscle Tremors: None Anxiety: 0-No Anxiety, at Ease Agitation: 0-Normal Activity Paroxysmal Sweats: 3 Orientation: 0-Oriented Tacttile Disturbances: 3-Moderate Itch/Numb/Burn Auditory Disturbances: 1-Very Mild Visual Disturbances: 3-Moderate Sensitivity Headache: 0-None Present CIWA-Ar Total Score: 10 [facility] COWS - Scale Resting Pulse: 1= ME 81-100 Sweatin= Chills/Flushing Restless Observation: 0= Sits Still Pupil Size: 0= Normal to Room Light Bone or Joint Aches: 2= Severe Diffuse Aches Runny Nose/ Eye Tearin= None GI Upset > 30mins: 0= None Tremor Observation of Outstretched Hands: 0= None Yawning Observation: 1= 1-2x During Session Anxiety or Irritability: 2=Irritable/Anxious Goose Flesh Skin: 3=Piloerection COWS Score: 10 S Progress Note (SOAP) Subjective: Constipation, Body Aches, Sweating, Fatigue. Objective: PATIENT A & O X 3. IN NO ACUTE DISTRESS. 10/17/18 15:06 Vital Signs Temperature 96.6 F L 10/17/18 13:25 Pulse Rate 86 10/17/18 13:25 Respiratory Rate 16 10/17/18 13:25 Blood Pressure 109/61 10/17/18 13:25 O2 Sat by Pulse Oximetry (%) Laboratory Tests 10/17/18 10/17/18 10/17/18 08:15 08:15 08:15 WBC 3.7 L RBC 4.19 Hgb 14.6 Hct 42.1 MCV 100.7 H MCH 34.9 H MCHC 34.6 RDW 13.5 Plt Count 268 MPV 8.7 Sodium 138 Potassium 4.1 Chloride 102 Carbon Dioxide 29 Anion Gap 7 L BUN 20 H Creatinine 1.1 Creat Clearance w eGFR > 60 Random Glucose 109 H Calcium 9.1 Total Bilirubin 0.9 AST 25 ALT 28 Alkaline Phosphatase 96 Total Protein 7.0 Albumin 3.4 RPR Titer Nonreactive LABS NOTED. Assessment: 10/17/18 15:07 WITHDRAWAL SYMPTOMS. HYPERTENSION. Plan: CONTINUE DETOX. INCREASE DAILY PO FLUID INTAKE. CONTINUE TO MONITOR BLOOD PRESSURE.
[2018-10-17] MEDS: THIAMINE HCL 100 MG TABLET (FP) PO SCH (22:33)
[2018-10-18] MEDS: chlordiazePOXIDE HCL 25 MG CAPSULE PO SCH ×2 (06:16→10:14)
[2018-10-18] MEDS: ALBUTEROL SO4 8 GM HFA INHALER IH PRN ×2 (06:16→20:20)
[2018-10-18] MEDS: PRENATAL VITAMINS W/ FOLIC ACID TABLET (FP) PO SCH (10:14)
[2018-10-18] MEDS: METHADONE HCL 5 MG TABLET (FOR DETOX USE ONLY) PO SCH (10:14)
[2018-10-18] MEDS: NIFEdipine E.R 60 MG TABLET (UD) PO SCH (10:14)
[2018-10-18] MEDS: ASPIRIN 81 MG CHEWABLE TABLETS PO SCH (10:14)
[2018-10-18] MEDS: ENALAPRIL MALEATE 10 MG TABLET (FP) PO SCH (10:14)
--- NOTE | 2018-10-18 11:52 | PN ---
[facility] CIWA - CIWA Score Nausea/Vomitin-No Nausea/No Vomiting Muscle Tremors: 3 Anxiety: 2 Agitation: 3 Paroxysmal Sweats: 3 Orientation: 0-Oriented Tacttile Disturbances: 0-None Auditory Disturbances: 0-None Visual Disturbances: 0-None Headache: 0-None Present CIWA-Ar Total Score: 11 S COWS - Scale Resting Pulse: 0= HI 80 or Below Sweatin=Flushed/Facial Moisture Restless Observation: 1= Difficult to Sit Still Pupil Size: 0= Normal to Room Light Bone or Joint Aches: 2= Severe Diffuse Aches Runny Nose/ Eye Tearin= Nasal Congestion GI Upset > 30mins: 0= None Tremor Observation of Outstretched Hands: 2= Slight Tremor Visible Yawning Observation: 1= 1-2x During Session Anxiety or Irritability: 1=Feels Anxious/Irritable Goose Flesh Skin: 0=Smooth Skin COWS Score: 10 [facility] Progress Note (SOAP) Subjective: agitation sweats shakes interrupted sleep body aches Objective: 10/18/18 11:50 Vital Signs Temperature 98.2 F 10/18/18 09:16 Pulse Rate 91 H 10/18/18 09:16 Respiratory Rate 18 10/18/18 09:16 Blood Pressure 142/80 10/18/18 09:16 O2 Sat by Pulse Oximetry (%) Laboratory Tests 10/17/18 10/17/18 10/17/18 08:15 08:15 08:15 WBC 3.7 L RBC 4.19 Hgb 14.6 Hct 42.1 MCV 100.7 H MCH 34.9 H MCHC 34.6 RDW 13.5 Plt Count 268 MPV 8.7 Sodium 138 Potassium 4.1 Chloride 102 Carbon Dioxide 29 Anion Gap 7 L BUN 20 H Creatinine 1.1 Creat Clearance w eGFR > 60 Random Glucose 109 H Calcium 9.1 Total Bilirubin 0.9 AST 25 ALT 28 Alkaline Phosphatase 96 Total Protein 7.0 Albumin 3.4 RPR Titer Nonreactive aaox3 ambulating no acute distress Assessment: 10/18/18 11:51 withdrawl sx Plan: continue detox increase fluids
[2018-10-18] MEDS: SODIUM CHLORIDE NASAL SPRAY 44 ML BOTTLE NS PRN ×2 (13:38→20:20)
[2018-10-18] MEDS: chlordiazePOXIDE 5 MG CAPSULE PO SCH ×2 (17:50→22:25)
[2018-10-18] MEDS: THIAMINE HCL 100 MG TABLET (FP) PO SCH (22:25)
[2018-10-19] MEDS: chlordiazePOXIDE 5 MG CAPSULE PO SCH ×2 (06:20→11:21)
[2018-10-19] MEDS: PRENATAL VITAMINS W/ FOLIC ACID TABLET (FP) PO SCH (10:39)
[2018-10-19] MEDS: ASPIRIN 81 MG CHEWABLE TABLETS PO SCH (10:39)
[2018-10-19] MEDS: METHADONE HCL 5 MG TABLET (FOR DETOX USE ONLY) PO SCH (10:39)
[2018-10-19] MEDS: ENALAPRIL MALEATE 10 MG TABLET (FP) PO SCH (10:40)
[2018-10-19] MEDS: NIFEdipine E.R 60 MG TABLET (UD) PO SCH (10:40)
--- NOTE | 2018-10-19 11:21 | PN ---
[facility] Progress Note (SOAP) Subjective: sweats shakes tired Objective: 10/19/18 11:20 Vital Signs Temperature 98.7 F 10/19/18 11:12 Pulse Rate 100 H 10/19/18 11:12 Respiratory Rate 10/19/18 11:12 Blood Pressure 149/73 10/19/18 11:12 O2 Sat by Pulse Oximetry (%) aaox3 ambulating no acute distress Assessment: 10/19/18 11:20 withdrawal sx Plan: continue detox increase fluids
[2018-10-19] MEDS: ALBUTEROL SO4 8 GM HFA INHALER IH PRN (13:21)
[2018-10-19] MEDS: SODIUM CHLORIDE NASAL SPRAY 44 ML BOTTLE NS PRN (13:21)
[2018-10-19] MEDS: chlordiazePOXIDE HCL 10 MG CAPSULE PO SCH ×2 (17:49→22:41)
[2018-10-19] MEDS: THIAMINE HCL 100 MG TABLET (FP) PO SCH (22:41)
[2018-10-20] MEDS: chlordiazePOXIDE HCL 10 MG CAPSULE PO SCH (05:57)
[2018-10-20] MEDS: SODIUM CHLORIDE NASAL SPRAY 44 ML BOTTLE NS PRN (05:58)
[2018-10-20] MEDS: ALBUTEROL SO4 8 GM HFA INHALER IH PRN ×3 (05:58→22:25)
[2018-10-20] MEDS ORDERED: METHADONE HCL 10 MG TABLET (FOR DETOX USE ONLY) PO SCH (10:00)
[2018-10-20] MEDS: ENALAPRIL MALEATE 10 MG TABLET (FP) PO SCH (10:40)
[2018-10-20] MEDS: NIFEdipine E.R 60 MG TABLET (UD) PO SCH (10:40)
[2018-10-20] MEDS: PRENATAL VITAMINS W/ FOLIC ACID TABLET (FP) PO SCH (10:40)
[2018-10-20] MEDS: ASPIRIN 81 MG CHEWABLE TABLETS PO SCH (10:41)
--- NOTE | 2018-10-20 11:12 | PN ---
[facility] Progress Note (SOAP) Subjective: tired sleepy i dont want anymore libirum; its making me too tired and weak. Objective: 10/20/18 11:10 Vital Signs Temperature 98.4 F 10/20/18 09:29 Pulse Rate 107 H 10/20/18 09:29 Respiratory Rate 18 10/20/18 09:29 Blood Pressure 158/86 10/20/18 09:29 O2 Sat by Pulse Oximetry (%) aaox3 ambulating no acute distress Assessment: 10/20/18 11:11 mild withdrawal Plan: continue detox with rest of methadone librium d/c increase fluids d/c in am
[2018-10-20] MEDS: THIAMINE HCL 100 MG TABLET (FP) PO SCH (22:24)
[2018-10-21] MEDS ORDERED: METHADONE HCL 5 MG TABLET (FOR DETOX USE ONLY) PO SCH (06:00)
[2018-10-21] MEDS: SODIUM CHLORIDE NASAL SPRAY 44 ML BOTTLE NS PRN ×2 (06:12→09:20)
--- NOTE | 2018-10-21 08:44 | DS ---
[facility] Detox Discharge Summary Admission Date: 10/16/18 Discharge Date: 10/21/18 - History Present History: Alcohol Dependence, Cannabis Dependence, Opioid Dependence - Physical Exam Results Vital Signs: Vital Signs Temperature 98.2 F 10/21/18 06:00 Pulse Rate 84 10/21/18 06:00 Respiratory Rate 18 10/21/18 06:00 Blood Pressure 159/92 10/21/18 06:00 O2 Sat by Pulse Oximetry (%) - Treatment Hospital Course: Detox Protocol Followed, Detoxed Safely, Responded well, Discharged Condition Good, Rehab Referral Accepted - Medication Discharge Medications: Ambulatory Orders Albuterol Sulfate [Proair Hfa -] 2 inh PO QID PRN 11/20/15 Aspirin [ASA -] 81 mg PO DAILY #30 tab 08/04/17 Enalapril Maleate [Vasotec] 20 mg PO DAILY #30 tablet 08/04/17 Nifedipine ER [Procardia XL -] 60 mg PO DAILY #30 tab.er.24 08/04/17 - Diagnosis (1) Uncomplicated alcohol dependence Current Visit: Yes Status: Chronic (2) HTN (hypertension) Current Visit: Yes Status: Chronic Qualifiers: Hypertension type: essential hypertension (3) Cannabis dependence, uncomplicated Current Visit: No Status: Acute (4) Drug-induced mood disorder Current Visit: No Status: Acute (5) Nicotine dependence Current Visit: No Status: Acute Qualifiers: Nicotine product type: cigarettes Substance use status: uncomplicated Qualified Code(s): F17.210 - Nicotine dependence, cigarettes, uncomplicated (6) Opioid dependence with withdrawal Current Visit: Yes Status: Chronic (7) PPD positive Current Visit: No Status: Acute (8) Weight loss Current Visit: No Status: Acute (9) Asthma Current Visit: Yes Status: Chronic Qualifiers: Asthma severity: mild Asthma persistence: unspecified Asthma complication type: uncomplicated Qualified Code(s): J45.909 - Unspecified asthma, uncomplicated (10) COPD (chronic obstructive pulmonary disease) with emphysema Current Visit: Yes Status: Chronic Qualifiers: Emphysema type: unspecified Qualified Code(s): J43.9 - Emphysema, unspecified (11) Depression Current Visit: No Status: Chronic Qualifiers: Major depression episode severity: mild - AMA Did Patient Leave Against Medical Advice: No (referred to inpatient rehab.)
[2018-10-21] MEDS: PRENATAL VITAMINS W/ FOLIC ACID TABLET (FP) PO SCH (09:19)
[2018-10-21] MEDS: ENALAPRIL MALEATE 10 MG TABLET (FP) PO SCH (09:19)
[2018-10-21] MEDS: ASPIRIN 81 MG CHEWABLE TABLETS PO SCH (09:19)
[2018-10-21] MEDS: NIFEdipine E.R 60 MG TABLET (UD) PO SCH (09:19)
[2018-10-21] MEDS: ALBUTEROL SO4 8 GM HFA INHALER IH PRN (09:20)
[2018-10-21 09:51] VITALS: BP 169/98; PULSE 93; TEMP 98.1
== END 2018-10-21 12:18 | disposition other institution (70) | DRG 897 ==
LOC: YASAS 08:46 → Y6N 11:07
PROC: HZ2ZZZZ Detoxification Services for Substance Abuse Treatment (ICD-10-PCS; principal; 2018-10-16)
DX: F11.23 Opioid dependence with withdrawal (principal); F10.230 Alcohol dependence with withdrawal, uncomplicated; F12.20 Cannabis dependence, uncomplicated; F17.210 Nicotine dependence, cigarettes, uncomplicated; F19.24 Other psychoactive substance dependence with psychoactive substance-induced mood disorder; F32.9 Major depressive disorder, single episode, unspecified; I10 Essential (primary) hypertension; J45.909 Unspecified asthma, uncomplicated; J43.9 Emphysema, unspecified; R76.11 Nonspecific reaction to tuberculin skin test without active tuberculosis; R63.4 Abnormal weight loss; Z68.25 Body mass index [BMI] 25.0-25.9, adult
CPT/HCPCS: 36415; 80053; 85027; 86593

== ENCOUNTER 2018-10-21 12:27 | Inpatient (IN) | payer OTHER ==
--- NOTE | 2018-10-21 11:48 | HP ---
[facility] Re[facility] Assess/Revision - Admission History Admitted to Rehab [facility] - Findings Detox History & Physical reviewed: Yes Concur with findings: Yes Inpatient Rehab Admission - Initial Determination Are CD services needed?: Yes Free of communicable disease: Yes - Rehab Admission Criteria Previous failed treatment: Yes Poor recovery environment: Yes Comorbidities: Yes
[~2018-10-21 12:27] MED LIST: ACETAMINOPHEN 325 MG TABLET (FP) PO PRN; IBUPROFEN 400 MG TABLET (FP) PO PRN; LOPERAMIDE HCL 2 MG CAPSULE PO PRN; MAGNESIUM CITRATE 300 ML BOTTLE PO PRN; MAGNESIUM HYDROX 2400MG/30ML ORAL SUSPENSION 30 ML CUP PO PRN; MENTHOL/PHENOL 1 EACH UD MM PRN; P-EPHED 60MG/TRIPROLIDI 2.5MG TABLET PO PRN; guaiFENesin/D-METHORPHAN HB 10 ML UNIT-DOSE CUPS PO PRN; hydrOXYzine PAMOATE 50 MG CAPSULE (FP) PO PRN
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
--- NOTE | 2018-10-21 13:48 | PN ---
[facility] Progress Note Note: NEW ADMIT FROM DETOX 6 [facility]. DETOXED FROM HEROIN WITH METHADONE. C/O SLIGHT FATIGUE AND NASAL CONGESTION. PT REPORTS HX OF COPD,HTN, ARTHRITIS LEFT SHOULDER AND PNEUMOTHORAX(2004). PT STATES HE HAS A PMD, [address] [facility], [place], [place]. Vital Signs 10/21/18 13:11 Temperature 97.4 F L Pulse Rate 103 H Respiratory 18 Rate Blood Pressure 153/68 LUNGS:CTA CARDIAC: S1 S2 RRR (-)MURMUR A:HX COPD HX HTN HX ARTHRITIS PLAN:ADD SPIRIVA DIRECTED MONITOR PT STATUS SALINE NASAL SPRAY DIRECTED ENSURE PLUS 120 ML PO BID
[2018-10-21] MEDS: THIAMINE HCL 100 MG TABLET (FP) PO SCH (22:10)
[2018-10-21] MEDS: MELATONIN 5 MG TABLETS PO PRN (22:10)
[2018-10-21] MEDS: ALBUTEROL SO4 8 GM HFA INHALER IH PRN (22:11)
[2018-10-22] MEDS: PRENATAL VITAMINS W/ FOLIC ACID TABLET (FP) PO SCH (11:09)
[2018-10-22] MEDS: NIFEdipine E.R 60 MG TABLET (UD) PO SCH (11:09)
[2018-10-22] MEDS: ASPIRIN 81 MG CHEWABLE TABLETS PO SCH (11:09)
[2018-10-22] MEDS: ENALAPRIL MALEATE 10 MG TABLET (FP) PO SCH (11:10)
[2018-10-22] MEDS: TIOTROPIUM BROMIDE 2.5 MCG (SPIRIVA) RESPIMAT INHALER IH SCH (11:10)
[2018-10-22] MEDS: MAG HYDROX/AL HYDROX/SIMETH 30 ML UNIT-DOSE CUP PO PRN (18:04)
[2018-10-22] MEDS: THIAMINE HCL 100 MG TABLET (FP) PO SCH (22:14)
[2018-10-22] MEDS: SODIUM CHLORIDE NASAL SPRAY 44 ML BOTTLE NS PRN (22:15)
[2018-10-22] MEDS: MELATONIN 5 MG TABLETS PO PRN (22:15)
[2018-10-22] MEDS: ALBUTEROL SO4 8 GM HFA INHALER IH PRN (22:17)
[2018-10-23] MEDS: ENALAPRIL MALEATE 10 MG TABLET (FP) PO SCH (10:02)
[2018-10-23] MEDS: NIFEdipine E.R 60 MG TABLET (UD) PO SCH (10:03)
[2018-10-23] MEDS: ASPIRIN 81 MG CHEWABLE TABLETS PO SCH (10:47)
[2018-10-23] MEDS: TIOTROPIUM BROMIDE 2.5 MCG (SPIRIVA) RESPIMAT INHALER IH SCH (10:49)
[2018-10-23] MEDS: PRENATAL VITAMINS W/ FOLIC ACID TABLET (FP) PO SCH (10:50)
[2018-10-23] MEDS: MAG HYDROX/AL HYDROX/SIMETH 30 ML UNIT-DOSE CUP PO PRN (12:41)
[2018-10-23] MEDS: SODIUM CHLORIDE NASAL SPRAY 44 ML BOTTLE NS PRN (21:49)
[2018-10-23] MEDS: MELATONIN 5 MG TABLETS PO PRN (21:49)
[2018-10-23] MEDS: THIAMINE HCL 100 MG TABLET (FP) PO SCH (21:49)
[2018-10-24] MEDS: SODIUM CHLORIDE NASAL SPRAY 44 ML BOTTLE NS PRN (10:25)
[2018-10-24] MEDS: ASPIRIN 81 MG CHEWABLE TABLETS PO SCH (10:25)
[2018-10-24] MEDS: PRENATAL VITAMINS W/ FOLIC ACID TABLET (FP) PO SCH (10:25)
[2018-10-24] MEDS: TIOTROPIUM BROMIDE 2.5 MCG (SPIRIVA) RESPIMAT INHALER IH SCH (10:26)
[2018-10-24] MEDS: ENALAPRIL MALEATE 10 MG TABLET (FP) PO SCH (12:20)
[2018-10-24] MEDS: NIFEdipine E.R 60 MG TABLET (UD) PO SCH (12:21)
[2018-10-24] MEDS: THIAMINE HCL 100 MG TABLET (FP) PO SCH (22:15)
[2018-10-24] MEDS: MELATONIN 5 MG TABLETS PO PRN (22:15)
[2018-10-25] MEDS: PRENATAL VITAMINS W/ FOLIC ACID TABLET (FP) PO SCH (10:45)
[2018-10-25] MEDS: ASPIRIN 81 MG CHEWABLE TABLETS PO SCH (10:45)
[2018-10-25] MEDS: ENALAPRIL MALEATE 10 MG TABLET (FP) PO SCH (10:45)
[2018-10-25] MEDS: NIFEdipine E.R 60 MG TABLET (UD) PO SCH (10:45)
[2018-10-25] MEDS: TIOTROPIUM BROMIDE 2.5 MCG (SPIRIVA) RESPIMAT INHALER IH SCH (10:46)
[2018-10-25] MEDS: ALBUTEROL SO4 8 GM HFA INHALER IH PRN ×2 (10:48→21:59)
[2018-10-25] MEDS: MELATONIN 5 MG TABLETS PO PRN (21:59)
[2018-10-25] MEDS: SODIUM CHLORIDE NASAL SPRAY 44 ML BOTTLE NS PRN (21:59)
[2018-10-25] MEDS: THIAMINE HCL 100 MG TABLET (FP) PO SCH (21:59)
--- NOTE | 2018-10-26 01:03 | PN ---
[facility] Progress Note (SOAP) Subjective: ASKED TO SEE A PT FOR A REPORTED FALL. CLIENT STATES HE ROLLED OUT OF BED. DENIES ANY INJURIES TO INCLUDE HEAD TRAUMA Objective: 10/26/18 07:51 Vital Signs - 24 hr 10/25/18 10/26/18 10/26/18 23:58 00:30 01:00 Temperature 98.9 F 98.5 F Pulse Rate 89 90 Respiratory 20 18 18 Rate Blood Pressure 148/88 157/98 10/26/18 10/26/18 10/26/18 01:04 03:00 03:04 Temperature 98.5 F 99.1 F 99.1 F Pulse Rate 90 80 80 Respiratory 18 18 18 Rate Blood Pressure 157/98 147/89 147/89 10/26/18 10/26/18 10/26/18 03:30 05:00 05:04 Temperature Pulse Rate Respiratory 18 18 18 Rate Blood Pressure 10/26/18 10/26/18 07:04 07:05 Temperature 97.9 F 97.9 F Pulse Rate 95 H 95 H Respiratory 18 18 Rate Blood Pressure 152/78 152/78 SEEN SEATED AT BEDSIDE A/O X3 NAD HEENT- NCAT, PERRLA, EOMI EXTREMITIES- FROM X4 W/O LIMITATIONS SKIN - INTACT DRY BACK- NL INSPECTION NO VISIBLE INJURIES Assessment: S/P UNWITNESSED FALL W/O INJURIES Plan: D/W CLIENT HOSPITAL PROTOCOL FOR HEAD CT 11/05 TO FALL BEING UNWITNESSED. CLIENT DECLINES AT THIS TIME STATING HE IS FINE AND HE DID NOT STRIKE HIS HEAD. RISK DISCUSSED WITH CLIENT WHO VERBALIZED UNDERSTANDING. FALL PROTOCOL MONITOR FOR SAFETY/ CLINICALLY
[2018-10-26] MEDS: PRENATAL VITAMINS W/ FOLIC ACID TABLET (FP) PO SCH (09:53)
[2018-10-26] MEDS: ASPIRIN 81 MG CHEWABLE TABLETS PO SCH (09:53)
[2018-10-26] MEDS: TIOTROPIUM BROMIDE 2.5 MCG (SPIRIVA) RESPIMAT INHALER IH SCH (09:53)
[2018-10-26] MEDS: NIFEdipine E.R 60 MG TABLET (UD) PO SCH (09:53)
[2018-10-26] MEDS: ENALAPRIL MALEATE 10 MG TABLET (FP) PO SCH (09:53)
[2018-10-26] MEDS: ALBUTEROL SO4 8 GM HFA INHALER IH PRN (09:55)
[2018-10-26] MEDS: MAG HYDROX/AL HYDROX/SIMETH 30 ML UNIT-DOSE CUP PO PRN (14:32)
[2018-10-26] MEDS: THIAMINE HCL 100 MG TABLET (FP) PO SCH (21:59)
[2018-10-27] MEDS: ASPIRIN 81 MG CHEWABLE TABLETS PO SCH (11:00)
[2018-10-27] MEDS: NIFEdipine E.R 60 MG TABLET (UD) PO SCH (11:00)
[2018-10-27] MEDS: PRENATAL VITAMINS W/ FOLIC ACID TABLET (FP) PO SCH (11:00)
[2018-10-27] MEDS: TIOTROPIUM BROMIDE 2.5 MCG (SPIRIVA) RESPIMAT INHALER IH SCH (11:01)
[2018-10-27] MEDS: ENALAPRIL MALEATE 10 MG TABLET (FP) PO SCH (11:01)
[2018-10-27] MEDS: SODIUM CHLORIDE NASAL SPRAY 44 ML BOTTLE NS PRN (11:02)
[2018-10-27] MEDS: THIAMINE HCL 100 MG TABLET (FP) PO SCH (21:55)
[2018-10-27] MEDS: MELATONIN 5 MG TABLETS PO PRN (21:55)
[2018-10-28] MEDS: ALBUTEROL SO4 8 GM HFA INHALER IH PRN (06:43)
[2018-10-28 07:19] VITALS: BP 158/85; PULSE 102; TEMP 98.7
[2018-10-28] MEDS: ASPIRIN 81 MG CHEWABLE TABLETS PO SCH (09:47)
[2018-10-28] MEDS: PRENATAL VITAMINS W/ FOLIC ACID TABLET (FP) PO SCH (09:47)
[2018-10-28] MEDS: NIFEdipine E.R 60 MG TABLET (UD) PO SCH (09:47)
[2018-10-28] MEDS: ENALAPRIL MALEATE 10 MG TABLET (FP) PO SCH (09:48)
[2018-10-28] MEDS: TIOTROPIUM BROMIDE 2.5 MCG (SPIRIVA) RESPIMAT INHALER IH SCH (11:33)
--- NOTE | 2018-10-28 14:47 | PN ---
[facility] Progress Note Note: PT COMPLETED REHAB AND DISCHARGED TODAY. ALERT O X 3. PT MET WITH HIS COUNSELOR , MEHUL TODAY AND I SPOKE WITH PT WHO HAS BEEN REFERRED TO [facility] AND REPORTS HE HAS A PCP [facility](PT NOT SURE OF SPELLING) ON [address], [place]. PT STATES HE WILL FOLLOW UP WITH HIS PMD AND STATES THAT HE HAS ALL HIS MEDICATIONS AND NO NEED FOR [facility] RX TODAY. Vital Signs - 24 hr 10/28/18 10/28/18 10/28/18 00:30 03:30 07:18 Temperature 98.7 F Pulse Rate 102 H Respiratory 18 18 18 Rate Blood Pressure 158/85 PLAN:FOLLOW UP WITH [facility] FOR CD AFTERCARE TREATMENT RECOMMENDED. FOLLOW UP WITH PMD ABOVE FOR MEDICAL MANAGEMENT.
== END 2018-10-28 10:05 | disposition home or self-care (01) | DRG 895 ==
LOC: YASAS 12:27 → Y5N 12:30
PROVIDERS: ADMIT Psychiatry & Neurology Psychiatry; ATTEND Psychiatry & Neurology Psychiatry
PROC: HZ42ZZZ Group Counseling for Substance Abuse Treatment, Cognitive-Behavioral (ICD-10-PCS; principal; 2018-10-21)
DX: F11.20 Opioid dependence, uncomplicated (principal); F19.282 Other psychoactive substance dependence with psychoactive substance-induced sleep disorder; F10.20 Alcohol dependence, uncomplicated; F17.210 Nicotine dependence, cigarettes, uncomplicated; F19.24 Other psychoactive substance dependence with psychoactive substance-induced mood disorder; I10 Essential (primary) hypertension; J44.9 Chronic obstructive pulmonary disease, unspecified; J45.909 Unspecified asthma, uncomplicated; Z87.09 Personal history of other diseases of the respiratory system; R76.11 Nonspecific reaction to tuberculin skin test without active tuberculosis; W06.XXXA Fall from bed, initial encounter; Y93.89 Activity, other specified; Y92.230 Patient room in hospital as the place of occurrence of the external cause; Y99.8 Other external cause status

== ENCOUNTER 2018-11-27 15:17 | Inpatient (IN) | payer OTHER ==
[2018-11-27 17:43] VITALS: BMI 24.4
--- NOTE | 2018-11-27 18:38 | HP ---
COWS - Scale Resting Pulse: 1= [place] 81-100 Sweatin= Chills/Flushing Restless Observation: 1= Difficult to Sit Still Pupil Size: 1= Pupils >than Normal Bone or Joint Aches: 1= Mild Discomfort Runny Nose/ Eye Tearin= Runny Nose/Eyes GI Upset > 30mins: 2= Nausea/Diarrhea Tremor Observation: 1= Tremor [place], Not Seen Yawning Observation: 1= 1-2x During Session Anxiety or Irritability: 1=Feels Anxious/Irritable Goose Flesh Skin: 3=Piloerection COWS Score: 15 CIWA Score Nausea/Vomitin Muscle Tremors: 4-Moderate,w/Arms Extend Anxiety: 3 Agitation: 2 Paroxysmal Sweats: 1-Minimal Palms Moist Orientation: 0-Oriented Tacttile Disturbances: 0-None Auditory Disturbances: 0-None Visual Disturbances: 0-None Headache: 0-None Present CIWA-Ar Total Score: 12 - Admission Criteria OASAS Guidelines: Admission for Medically Managed Detox: Requires at least one of the followin. CIWA greater than 12 2. Seizures within the past 24 hours 3. Delirium tremens within the past 24 hours 4. Hallucinations within the past 24 hours 5. Acute intervention needed for co occurring medical disorder 6. Acute intervention needed for co occurring psychiatric disorder 7. Severe withdrawal that cannot be handled at a lower level of care (continued vomiting, continued diarrhea, abnormal vital signs) requiring intravenous medication and/or fluids 8. Patient presents the following: CIWA greater than 12 Admission Criteria Met: Admission criteria met Admission ROS [facility] Chief Complaint: here for alcohol and heroin detox 78 yo with emphysema and HTN was here about a month ago, left rehab 10/27/17- relapsed almost immediately. Lives alone. Says this time he wants to go away for rehab. pt today refused consideration of opioid MAT with methadone/suboxone after discussion about these opportunities- pt states it is not for him at this age-prefers inpt detox alcohol- drinks 1 pint/day of [place], no h/o DT's or seizures heroin- 7 bags/day, inhaling. no other drugs does not smoke cigarettes DUR_ no controlled substances URINE DRUG SCREEN RESULTS Drug Screen Negative No Urine Drug Screen Results OPI-Opiates,MTD-Methadone,FEN-Fentanyl Allergies/Adverse Reactions: Allergies Allergy/AdvReac Type Severity Reaction Status Date / Time No Known Allergies Allergy Verified 11/27/18 18:37 Exam Limitations: No Limitations - Ebola screening Have you traveled outside of the country in the last 21 days: No (N) Have you had contact with anyone from an Ebola affected area: No Have you been sick,other than usual withdrawal symptoms: No Do you have a fever: No Patient History - Patient Medical History Hx Anemia: No Hx Asthma: No Hx Chronic Obstructive Pulmonary Disease (COPD): Yes (ON MDI) Hx Cancer: No Hx Cardiac Disorders: No Hx Congestive Heart Failure: No Hx Hypertension: No Hx Hypercholesterolemia: No Hx Pacemaker: No HX Cerebrovascular Accident: No Hx Seizures: No Hx Dementia: No Hx Diabetes: No Hx Gastrointestinal Disorders: No Hx Liver Disease: No Hx Genitourinary Disorders: No Hx Sexually Transmitted Disorders: No Hx Renal Disease (ESRD): No Hx Thyroid Disease: No Hx Human Immunodeficiency Virus (HIV): No (NEGATIVE HX last 2016, declines further testing ) Hx Hepatitis C: No Hx Depression: No Hx Suicide Attempt: No Hx Bipolar Disorder: No Hx Schizophrenia: No - Patient Surgical History Past Surgical History: Yes Hx Neurologic Surgery: No Hx Cataract Extraction: No Hx Cardiac Surgery: No Hx Lung Surgery: Yes (pneumothorax about 2005 left) Hx Breast Surgery: No Hx Breast Biopsy: No Hx Abdominal Surgery: No Hx Appendectomy: No Hx Cholecystectomy: No Hx Genitourinary Surgery: No Hx Section: No Hx Orthopedic Surgery: No Hx Hysterectomy: No Anesthesia Reaction: No - PPD History Results: positive - Smoking Cessation Smoking history: Current some day smoker Have you smoked in the past 12 months: Yes Aproximately how many cigarettes per day: 4 Cigars Per Day: 0 Hx Chewing Tobacco Use: No Initiated information on smoking cessation: No 'Breaking Loose' booklet given: 11/27/18 - Substance & Tx. History Hx Alcohol Use: Yes Hx Substance Use: Yes Substance Use Type: Alcohol, Heroin Hx Substance Use Treatment: Yes - Substances Abused Alcohol Route: Oral Frequency: Daily Amount used: 1 PINT Age of first use: 20 Date of Last Use: 11/27/18 Heroin Route: SNIFF Frequency: Daily Amount used: 5 BAGS Age of first use: 23 Date of Last Use: 11/27/18 Family Disease History - Family Disease History Family Disease History: Diabetes: Son, Heart Disease: Father (), Mother () Admission Physical Exam S - Vital Signs Vital Signs: Vital Signs - 24 hr 11/27/18 17:40 Temperature 98.6 F Pulse Rate 75 Respiratory 18 Rate Blood Pressure 131/66 - Physical General Appearance: Yes: Within Normal Limits, Nourished, Thin HEENTM: Yes: Within Normal Limits, Hearing grossly Normal, Normal ENT Inspection , Normocephalic, Normal Voice Respiratory: Yes: Within Normal Limits, Lungs Clear, No Respiratory Distress Cardiology: Yes: Within Normal Limits, Regular Rhythm, Regular Rate Abdominal: Yes: Within Normal Limits, Normal Bowel Sounds Genitourinary: Yes: Within Normal Limits Back: Yes: Within Normal Limits Musculoskeletal: Yes: Within Normal Limits Extremities: Yes: Within Normal Limits, Normal Inspection Neurological: Yes: Within Normal Limits, 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, Fully Oriented, Alert Integumentary: Yes: Within Normal Limits Lymphatic: Yes: Within Normal Limits - Diagnostic (1) Alcohol dependence Current Visit: No Status: Acute (2) Opioid dependence Current Visit: No Status: Acute (3) COPD (chronic obstructive pulmonary disease) with emphysema Current Visit: No Status: Chronic Qualifiers: Emphysema type: unspecified Qualified Code(s): J43.9 - Emphysema, unspecified (4) HTN (hypertension) Current Visit: No Status: Chronic Qualifiers: Hypertension type: essential hypertension S Breath Alcohol Content Breath Alcohol Content: 0 Urine Drug Screen - Results Drug Screen Negative: No Urine Drug Screen Results: OPI-Opiates, MTD-Methadone, FEN-Fentanyl Inpatient Rehab Admission - Rehab Decision to Admit Inpatient rehab admission?: No
[2018-11-27] MEDS ORDERED: IBUPROFEN 400 MG TABLET (FP) PO PRN (18:43)
[2018-11-27] MEDS ORDERED: MAGNESIUM CITRATE 300 ML BOTTLE PO PRN (18:43)
[2018-11-27] MEDS ORDERED: MAGNESIUM HYDROX 2400MG/30ML ORAL SUSPENSION 30 ML CUP PO PRN (18:43)
[2018-11-27] MEDS ORDERED: MAG HYDROX/AL HYDROX/SIMETH 30 ML UNIT-DOSE CUP PO PRN (18:43)
[2018-11-27] MEDS ORDERED: P-EPHED 60MG/TRIPROLIDI 2.5MG TABLET PO PRN (18:43)
[2018-11-27] MEDS ORDERED: guaiFENesin/D-METHORPHAN HB 10 ML UNIT-DOSE CUPS PO PRN (18:43)
[2018-11-27] MEDS ORDERED: MENTHOL/PHENOL 1 EACH UD MM PRN (18:43)
[2018-11-27] MEDS ORDERED: LOPERAMIDE HCL 2 MG CAPSULE PO PRN (18:43)
[2018-11-27] MEDS ORDERED: ACETAMINOPHEN 325 MG TABLET (FP) PO PRN (18:43)
[2018-11-27] MEDS ORDERED: hydrOXYzine PAMOATE 25 MG CAPSULE (FP) PO PRN (18:43)
[2018-11-27] MEDS ORDERED: chlordiazePOXIDE HCL 25 MG CAPSULE PO PRN (18:45)
[2018-11-27] MEDS ORDERED: METHADONE HCL 10 MG TABLET (FOR DETOX USE ONLY) PO ONE ×2 (18:45→23:00)
[2018-11-27] MEDS ORDERED: MELATONIN 5 MG TABLETS PO PRN (22:00)
[2018-11-27] MEDS: THIAMINE HCL 100 MG TABLET (FP) PO SCH (22:24)
[2018-11-27] MEDS: chlordiazePOXIDE HCL 25 MG CAPSULE PO SCH (22:24)
[2018-11-28] MEDS: ALBUTEROL SO4 8 GM HFA INHALER IH PRN ×2 (00:02→05:38)
[2018-11-28] MEDS: chlordiazePOXIDE HCL 25 MG CAPSULE PO SCH ×3 (05:38→16:54)
[2018-11-28] MEDS: NIFEdipine E.R 60 MG TABLET (UD) PO SCH (09:15)
[2018-11-28] MEDS: ENALAPRIL MALEATE 10 MG TABLET (FP) PO SCH (09:15)
[2018-11-28] MEDS: ASPIRIN 81 MG CHEWABLE TABLETS PO SCH (09:15)
[2018-11-28] MEDS: PRENATAL VITAMINS W/ FOLIC ACID TABLET (FP) PO SCH (09:17)
[2018-11-28] MEDS ORDERED: METHADONE HCL 10 MG TABLET (FOR DETOX USE ONLY) PO SCH (10:00)
[2018-11-28 10:04] LABS: HEMOGLOBIN 13.6 GM/dL (11.7-16.9); MCH 35.4 pg (25.7-33.7); MCHC 34.7 g/dl (32.0-35.9); MEAN CELL VOLUME 101.9 fl (80-96); MEAN PLT VOLUME 8.5 fl (7.5-11.1); PLATELET COUNT 246 K/MM3 (134-434); RBC 3.83 M/mm3 (4.00-5.60); RDW 13.1 % (11.9-15.9); WHITE BLOOD COUNT 4.2 K/mm3 (4.0-10.0)
[2018-11-28 10:15] LABS: URINE APPEARANCE CLEAR; URINE BILIRUBIN NEGATIVE (<2.0 mg/dL); URINE COLOR YELLOW; URINE GLUCOSE (UA) NEGATIVE (NEGATIVE); URINE KETONE NEGATIVE (NEGATIVE); URINE LEUK ESTERASE NEGATIVE (NEGATIVE); URINE NITRITE NEGATIVE (NEGATIVE); URINE PROTEIN NEGATIVE (NEGATIVE); URINE UROBILINOGEN NEGATIVE mg/dL (0.2-1.0)
[2018-11-28 10:43] LABS: ALBUMIN 3.2 g/dl (3.4-5.0); ALK PHOS 86 U/L (45-117); ANION GAP 7 MMOL/L (8-16); BILIRUBIN,TOTAL 0.8 mg/dL (0.2-1); BLOOD UREA NITROGEN 30 mg/dL (7-18); CALCIUM 9.2 mg/dL (8.5-10.1); CHLORIDE 103 mmol/L (98-107); CO2 26 mmol/L (21-32); CREATININE 1.2 mg/dL (0.55-1.3); GLUCOSE,RANDOM 99 mg/dL (74-106); POTASSIUM 3.9 mmol/L (3.5-5.1); SGOT/AST 22 U/L (15-37); SGPT/ALT 20 U/L (13-61); SODIUM 137 mmol/L (136-145); TOT PROT 6.2 g/dl (6.4-8.2)
[2018-11-28] MEDS: TIOTROPIUM BROMIDE 2.5 MCG (SPIRIVA) RESPIMAT INHALER IH SCH (11:17)
[2018-11-28] MEDS ORDERED: cloNIDine HCL 0.1 MG TABLET PO PRN (12:06)
--- NOTE | 2018-11-28 12:10 | PN ---
[facility] CIWA - CIWA Score Nausea/Vomitin-Mild Nausea/No Vomiting Muscle Tremors: 3 Anxiety: 2 Agitation: 2 Paroxysmal Sweats: 1-Minimal Palms Moist Orientation: 1-Uncertain about Date Tacttile Disturbances: 0-None Auditory Disturbances: 0-None Visual Disturbances: 0-None Headache: 1-Very Mild CIWA-Ar Total Score: 11 BHS COWS - Scale Resting Pulse: 0= [place] 80 or Below Sweatin= Chills/Flushing Restless Observation: 0= Sits Still Pupil Size: 0= Normal to Room Light Bone or Joint Aches: 2= Severe Diffuse Aches Runny Nose/ Eye Tearin= Nasal Congestion GI Upset > 30mins: 2= Nausea/Diarrhea Tremor Observation of Outstretched Hands: 2= Slight Tremor Visible Yawning Observation: 1= 1-2x During Session Anxiety or Irritability: 2=Irritable/Anxious Goose Flesh Skin: 0=Smooth Skin COWS Score: 11 [facility] Progress Note (SOAP) Subjective: body aches tremor headaches patient has long history of hypertension reported taking antihypertensive medication daily as prescribed last filled 10/28/18 Objective: 11/28/18 12:14 Vital Signs Temperature 967 F H 11/28/18 09:16 Pulse Rate 94 H 11/28/18 09:16 Respiratory Rate 20 11/28/18 09:16 Blood Pressure 170/95 11/28/18 09:16 O2 Sat by Pulse Oximetry (%) Laboratory Last Values WBC 4.2 K/mm3 (4.0-10.0) 11/28/18 07:40 RBC 3.83 M/mm3 (4.00-5.60) L 11/28/18 07:40 Hgb 13.6 GM/dL (11.7-16.9) 11/28/18 07:40 Hct 39.0 % (35.4-49) 11/28/18 07:40 MCV 101.9 fl (80-96) H 11/28/18 07:40 MCH 35.4 pg (25.7-33.7) H 11/28/18 07:40 MCHC 34.7 g/dl (32.0-35.9) 11/28/18 07:40 RDW 13.1 % (11.9-15.9) 11/28/18 07:40 Plt Count 246 K/MM3 (134-434) 11/28/18 07:40 MPV 8.5 fl (7.5-11.1) 11/28/18 07:40 Sodium 137 mmol/L (136-145) 11/28/18 07:40 Potassium 3.9 mmol/L (3.5-5.1) 11/28/18 07:40 Chloride 103 mmol/L (98-107) 11/28/18 07:40 Carbon Dioxide 26 mmol/L (21-32) 11/28/18 07:40 Anion Gap 7 MMOL/L (8-16) L 11/28/18 07:40 BUN 30 mg/dL (7-18) H 11/28/18 07:40 Creatinine 1.2 mg/dL (0.55-1.3) 11/28/18 07:40 Creat Clearance w eGFR 58.86 (>60) 11/28/18 07:40 Random Glucose 99 mg/dL (74-106) 11/28/18 07:40 Calcium 9.2 mg/dL (8.5-10.1) 11/28/18 07:40 Total Bilirubin 0.8 mg/dL (0.2-1) 11/28/18 07:40 AST 22 U/L (15-37) 11/28/18 07:40 ALT 20 U/L (13-61) 11/28/18 07:40 Alkaline Phosphatase 86 U/L (45-117) 11/28/18 07:40 Total Protein 6.2 g/dl (6.4-8.2) L 11/28/18 07:40 Albumin 3.2 g/dl (3.4-5.0) L 11/28/18 07:40 Urine Color Yellow 11/28/18 07:30 Urine Appearance Clear 11/28/18 07:30 Urine pH 5.0 (5.0-8.0) 11/28/18 07:30 Ur Specific [place] 1.023 (1.010-1.035) 11/28/18 07:30 Urine Protein Negative (NEGATIVE) 11/28/18 07:30 Urine Glucose (UA) Negative (NEGATIVE) 11/28/18 07:30 Urine Ketones Negative (NEGATIVE) 11/28/18 07:30 Urine Blood Negative (NEGATIVE) 11/28/18 07:30 Urine Nitrite Negative (NEGATIVE) 11/28/18 07:30 Urine Bilirubin Negative (<2.0 mg/dL) 11/28/18 07:30 Urine Urobilinogen Negative mg/dL (0.2-1.0) 11/28/18 07:30 Ur Leukocyte Esterase Negative (NEGATIVE) 11/28/18 07:30 RPR Titer Nonreactive (NONREACTIVE) 11/28/18 07:40 lab noted bun elevation Assessment: 11/28/18 12:31 alcohol and opiate withdrawal sx Plan: continue detox
[2018-11-28] MEDS: HYDROCHLOROTHIAZIDE 12.5 MG CAPSULE (FP) PO SCH (13:01)
[2018-11-28] MEDS: THIAMINE HCL 100 MG TABLET (FP) PO SCH (22:33)
[2018-11-28] MEDS: chlordiazePOXIDE 5 MG CAPSULE PO SCH (22:33)
[2018-11-29] MEDS: chlordiazePOXIDE 5 MG CAPSULE PO SCH ×4 (05:41→23:15)
[2018-11-29] MEDS: ASPIRIN 81 MG CHEWABLE TABLETS PO SCH (10:15)
[2018-11-29] MEDS: HYDROCHLOROTHIAZIDE 12.5 MG CAPSULE (FP) PO SCH (10:15)
[2018-11-29] MEDS: NIFEdipine E.R 60 MG TABLET (UD) PO SCH (10:15)
[2018-11-29] MEDS: PRENATAL VITAMINS W/ FOLIC ACID TABLET (FP) PO SCH (10:15)
[2018-11-29] MEDS: ENALAPRIL MALEATE 10 MG TABLET (FP) PO SCH (10:15)
[2018-11-29] MEDS: TIOTROPIUM BROMIDE 2.5 MCG (SPIRIVA) RESPIMAT INHALER IH SCH (10:16)
[2018-11-29] MEDS: METHADONE HCL 5 MG TABLET (FOR DETOX USE ONLY) PO SCH (10:16)
[2018-11-29] MEDS: ALBUTEROL SO4 8 GM HFA INHALER IH PRN (10:17)
--- NOTE | 2018-11-29 14:35 | PN ---
[facility] CIWA - CIWA Score Nausea/Vomitin-No Nausea/No Vomiting Muscle Tremors: 2 Anxiety: 1-Mildly Anxious Agitation: 1-Slight > Activity Paroxysmal Sweats: 1-Minimal Palms Moist Orientation: 0-Oriented Tacttile Disturbances: 0-None Auditory Disturbances: 0-None Visual Disturbances: 0-None Headache: 1-Very Mild CIWA-Ar Total Score: 6 BHS COWS - Scale Resting Pulse: 1= [place] 81-100 Sweatin= Chills/Flushing Restless Observation: 0= Sits Still Pupil Size: 0= Normal to Room Light Bone or Joint Aches: 1= Mild Discomfort Runny Nose/ Eye Tearin= None GI Upset > 30mins: 1= Stomach Cramp Tremor Observation of Outstretched Hands: 1= Tremor [place], Not Seen Yawning Observation: 0= None Anxiety or Irritability: 1=Feels Anxious/Irritable Goose Flesh Skin: 0=Smooth Skin COWS Score: 6 S Progress Note (SOAP) Subjective: tremor body pain joints stiffness sweating Objective: 11/29/18 14:33 Vital Signs Temperature 98.6 F 11/29/18 13:32 Pulse Rate 104 H 11/29/18 13:32 Respiratory Rate 18 11/29/18 13:32 Blood Pressure 143/80 11/29/18 13:32 O2 Sat by Pulse Oximetry (%) Laboratory Last Values WBC 4.2 K/mm3 (4.0-10.0) 11/28/18 07:40 RBC 3.83 M/mm3 (4.00-5.60) L 11/28/18 07:40 Hgb 13.6 GM/dL (11.7-16.9) 11/28/18 07:40 Hct 39.0 % (35.4-49) 11/28/18 07:40 MCV 101.9 fl (80-96) H 11/28/18 07:40 MCH 35.4 pg (25.7-33.7) H 11/28/18 07:40 MCHC 34.7 g/dl (32.0-35.9) 11/28/18 07:40 RDW 13.1 % (11.9-15.9) 11/28/18 07:40 Plt Count 246 K/MM3 (134-434) 11/28/18 07:40 MPV 8.5 fl (7.5-11.1) 11/28/18 07:40 Sodium 137 mmol/L (136-145) 11/28/18 07:40 Potassium 3.9 mmol/L (3.5-5.1) 11/28/18 07:40 Chloride 103 mmol/L (98-107) 11/28/18 07:40 Carbon Dioxide 26 mmol/L (21-32) 11/28/18 07:40 Anion Gap 7 MMOL/L (8-16) L 11/28/18 07:40 BUN 16 mg/dL (7-18) 11/29/18 07:00 Creatinine 1.2 mg/dL (0.55-1.3) 11/28/18 07:40 Creat Clearance w eGFR 58.86 (>60) 11/28/18 07:40 Random Glucose 99 mg/dL (74-106) 11/28/18 07:40 Calcium 9.2 mg/dL (8.5-10.1) 11/28/18 07:40 Total Bilirubin 0.8 mg/dL (0.2-1) 11/28/18 07:40 AST 22 U/L (15-37) 11/28/18 07:40 ALT 20 U/L (13-61) 11/28/18 07:40 Alkaline Phosphatase 86 U/L (45-117) 11/28/18 07:40 Total Protein 6.2 g/dl (6.4-8.2) L 11/28/18 07:40 Albumin 3.2 g/dl (3.4-5.0) L 11/28/18 07:40 Urine Color Yellow 11/28/18 07:30 Urine Appearance Clear 11/28/18 07:30 Urine pH 5.0 (5.0-8.0) 11/28/18 07:30 Ur Specific [place] 1.023 (1.010-1.035) 11/28/18 07:30 Urine Protein Negative (NEGATIVE) 11/28/18 07:30 Urine Glucose (UA) Negative (NEGATIVE) 11/28/18 07:30 Urine Ketones Negative (NEGATIVE) 11/28/18 07:30 Urine Blood Negative (NEGATIVE) 11/28/18 07:30 Urine Nitrite Negative (NEGATIVE) 11/28/18 07:30 Urine Bilirubin Negative (<2.0 mg/dL) 11/28/18 07:30 Urine Urobilinogen Negative mg/dL (0.2-1.0) 11/28/18 07:30 Ur Leukocyte Esterase Negative (NEGATIVE) 11/28/18 07:30 RPR Titer Nonreactive (NONREACTIVE) 11/28/18 07:40 lab noted continue oral hydration Assessment: 11/29/18 14:34 alcohol and opiate withdrawal sx 11/29/18 14:35 Plan: continue detox
[2018-11-29] MEDS: THIAMINE HCL 100 MG TABLET (FP) PO SCH (23:15)
[2018-11-30] MEDS: chlordiazePOXIDE 5 MG CAPSULE PO SCH ×4 (06:12→22:41)
[2018-11-30] MEDS: TIOTROPIUM BROMIDE 2.5 MCG (SPIRIVA) RESPIMAT INHALER IH SCH (10:14)
[2018-11-30] MEDS: ASPIRIN 81 MG CHEWABLE TABLETS PO SCH (10:14)
[2018-11-30] MEDS: ALBUTEROL SO4 8 GM HFA INHALER IH PRN (10:14)
[2018-11-30] MEDS: NIFEdipine E.R 60 MG TABLET (UD) PO SCH (10:15)
[2018-11-30] MEDS: PRENATAL VITAMINS W/ FOLIC ACID TABLET (FP) PO SCH (10:15)
[2018-11-30] MEDS: METHADONE HCL 5 MG TABLET (FOR DETOX USE ONLY) PO SCH (10:15)
[2018-11-30] MEDS: HYDROCHLOROTHIAZIDE 25 MG TABLET (FP) PO SCH (10:16)
[2018-11-30] MEDS: ENALAPRIL MALEATE 10 MG TABLET (FP) PO SCH (10:17)
--- NOTE | 2018-11-30 14:58 | PN ---
[facility] CIWA - CIWA Score Nausea/Vomitin-No Nausea/No Vomiting Muscle Tremors: 2 Anxiety: 1-Mildly Anxious Agitation: 1-Slight > Activity Paroxysmal Sweats: 1-Minimal Palms Moist Orientation: 0-Oriented Tacttile Disturbances: 0-None Auditory Disturbances: 0-None Visual Disturbances: 0-None Headache: 0-None Present CIWA-Ar Total Score: 5 S COWS - Scale Resting Pulse: 1= [place] 81-100 Sweatin= Chills/Flushing Restless Observation: 0= Sits Still Pupil Size: 0= Normal to Room Light Bone or Joint Aches: 1= Mild Discomfort Runny Nose/ Eye Tearin= Nasal Congestion GI Upset > 30mins: 0= None Tremor Observation of Outstretched Hands: 0= None Yawning Observation: 0= None Anxiety or Irritability: 1=Feels Anxious/Irritable Goose Flesh Skin: 0=Smooth Skin COWS Score: 5 S Progress Note (SOAP) Subjective: body aches tremor sweating stuffy nose Objective: 11/30/18 15:00 Vital Signs Temperature 96.0 F L 11/30/18 13:35 Pulse Rate 107 H 11/30/18 13:35 Respiratory Rate 18 11/30/18 13:35 Blood Pressure 133/83 11/30/18 13:35 O2 Sat by Pulse Oximetry (%) Laboratory Last Values WBC 4.2 K/mm3 (4.0-10.0) 11/28/18 07:40 RBC 3.83 M/mm3 (4.00-5.60) L 11/28/18 07:40 Hgb 13.6 GM/dL (11.7-16.9) 11/28/18 07:40 Hct 39.0 % (35.4-49) 11/28/18 07:40 MCV 101.9 fl (80-96) H 11/28/18 07:40 MCH 35.4 pg (25.7-33.7) H 11/28/18 07:40 MCHC 34.7 g/dl (32.0-35.9) 11/28/18 07:40 RDW 13.1 % (11.9-15.9) 11/28/18 07:40 Plt Count 246 K/MM3 (134-434) 11/28/18 07:40 MPV 8.5 fl (7.5-11.1) 11/28/18 07:40 Sodium 137 mmol/L (136-145) 11/28/18 07:40 Potassium 3.9 mmol/L (3.5-5.1) 11/28/18 07:40 Chloride 103 mmol/L (98-107) 11/28/18 07:40 Carbon Dioxide 26 mmol/L (21-32) 11/28/18 07:40 Anion Gap 7 MMOL/L (8-16) L 11/28/18 07:40 BUN 16 mg/dL (7-18) 11/29/18 07:00 Creatinine 1.2 mg/dL (0.55-1.3) 11/28/18 07:40 Creat Clearance w eGFR 58.86 (>60) 11/28/18 07:40 Random Glucose 99 mg/dL (74-106) 11/28/18 07:40 Calcium 9.2 mg/dL (8.5-10.1) 11/28/18 07:40 Total Bilirubin 0.8 mg/dL (0.2-1) 11/28/18 07:40 AST 22 U/L (15-37) 11/28/18 07:40 ALT 20 U/L (13-61) 11/28/18 07:40 Alkaline Phosphatase 86 U/L (45-117) 11/28/18 07:40 Total Protein 6.2 g/dl (6.4-8.2) L 11/28/18 07:40 Albumin 3.2 g/dl (3.4-5.0) L 11/28/18 07:40 Urine Color Yellow 11/28/18 07:30 Urine Appearance Clear 11/28/18 07:30 Urine pH 5.0 (5.0-8.0) 11/28/18 07:30 Ur Specific [place] 1.023 (1.010-1.035) 11/28/18 07:30 Urine Protein Negative (NEGATIVE) 11/28/18 07:30 Urine Glucose (UA) Negative (NEGATIVE) 11/28/18 07:30 Urine Ketones Negative (NEGATIVE) 11/28/18 07:30 Urine Blood Negative (NEGATIVE) 11/28/18 07:30 Urine Nitrite Negative (NEGATIVE) 11/28/18 07:30 Urine Bilirubin Negative (<2.0 mg/dL) 11/28/18 07:30 Urine Urobilinogen Negative mg/dL (0.2-1.0) 11/28/18 07:30 Ur Leukocyte Esterase Negative (NEGATIVE) 11/28/18 07:30 RPR Titer Nonreactive (NONREACTIVE) 11/28/18 07:40 lab noted discuss medication adherence Assessment: 11/30/18 15:00 alcohol and opiate withdrawal sx Plan: continue alcohol and opiate detox
[2018-11-30] MEDS: SODIUM CHLORIDE NASAL SPRAY 44 ML BOTTLE NS SCH ×2 (16:16→22:58)
[2018-11-30] MEDS: THIAMINE HCL 100 MG TABLET (FP) PO SCH (22:40)
[2018-12-01] MEDS: ALBUTEROL SO4 8 GM HFA INHALER IH PRN (05:39)
[2018-12-01] MEDS: chlordiazePOXIDE 5 MG CAPSULE PO SCH ×3 (05:39→17:22)
[2018-12-01] MEDS: SODIUM CHLORIDE NASAL SPRAY 44 ML BOTTLE NS SCH ×3 (05:39→22:11)
[2018-12-01] MEDS ORDERED: METHADONE HCL 10 MG TABLET (FOR DETOX USE ONLY) PO SCH (10:00)
[2018-12-01] MEDS: NIFEdipine E.R 60 MG TABLET (UD) PO SCH (10:08)
[2018-12-01] MEDS: TIOTROPIUM BROMIDE 2.5 MCG (SPIRIVA) RESPIMAT INHALER IH SCH (10:08)
[2018-12-01] MEDS: PRENATAL VITAMINS W/ FOLIC ACID TABLET (FP) PO SCH (10:08)
[2018-12-01] MEDS: HYDROCHLOROTHIAZIDE 25 MG TABLET (FP) PO SCH (10:09)
[2018-12-01] MEDS: ASPIRIN 81 MG CHEWABLE TABLETS PO SCH (10:09)
[2018-12-01] MEDS: ENALAPRIL MALEATE 10 MG TABLET (FP) PO SCH (10:09)
--- NOTE | 2018-12-01 11:24 | PN ---
[facility] CIWA - CIWA Score Nausea/Vomitin-No Nausea/No Vomiting Muscle Tremors: 1-None Visible, but [place] Anxiety: 0-No Anxiety, at Ease Agitation: 1-Slight > Activity Paroxysmal Sweats: 1-Minimal Palms Moist Orientation: 0-Oriented Tacttile Disturbances: 0-None Auditory Disturbances: 0-None Visual Disturbances: 0-None Headache: 0-None Present CIWA-Ar Total Score: 3 S COWS - Scale Resting Pulse: 1= [place] 81-100 Sweatin= Chills/Flushing Restless Observation: 0= Sits Still Pupil Size: 0= Normal to Room Light Bone or Joint Aches: 1= Mild Discomfort Runny Nose/ Eye Tearin= None GI Upset > 30mins: 0= None Tremor Observation of Outstretched Hands: 1= Tremor [place], Not Seen Yawning Observation: 0= None Anxiety or Irritability: 1=Feels Anxious/Irritable Goose Flesh Skin: 0=Smooth Skin COWS Score: 5 S Progress Note (SOAP) Subjective: feeling better less tremor mild sweating social with peers in day room discuss aftercare with staff Objective: 12/01/18 11:24 Vital Signs Temperature 96.6 F L 12/01/18 09:21 Pulse Rate 92 H 12/01/18 09:21 Respiratory Rate 18 12/01/18 09:21 Blood Pressure 150/82 12/01/18 09:21 O2 Sat by Pulse Oximetry (%) Laboratory Last Values WBC 4.2 K/mm3 (4.0-10.0) 11/28/18 07:40 RBC 3.83 M/mm3 (4.00-5.60) L 11/28/18 07:40 Hgb 13.6 GM/dL (11.7-16.9) 11/28/18 07:40 Hct 39.0 % (35.4-49) 11/28/18 07:40 MCV 101.9 fl (80-96) H 11/28/18 07:40 MCH 35.4 pg (25.7-33.7) H 11/28/18 07:40 MCHC 34.7 g/dl (32.0-35.9) 11/28/18 07:40 RDW 13.1 % (11.9-15.9) 11/28/18 07:40 Plt Count 246 K/MM3 (134-434) 11/28/18 07:40 MPV 8.5 fl (7.5-11.1) 11/28/18 07:40 Sodium 137 mmol/L (136-145) 11/28/18 07:40 Potassium 3.9 mmol/L (3.5-5.1) 11/28/18 07:40 Chloride 103 mmol/L (98-107) 11/28/18 07:40 Carbon Dioxide 26 mmol/L (21-32) 11/28/18 07:40 Anion Gap 7 MMOL/L (8-16) L 11/28/18 07:40 BUN 16 mg/dL (7-18) 11/29/18 07:00 Creatinine 1.2 mg/dL (0.55-1.3) 11/28/18 07:40 Creat Clearance w eGFR 58.86 (>60) 11/28/18 07:40 Random Glucose 99 mg/dL (74-106) 11/28/18 07:40 Calcium 9.2 mg/dL (8.5-10.1) 11/28/18 07:40 Total Bilirubin 0.8 mg/dL (0.2-1) 11/28/18 07:40 AST 22 U/L (15-37) 11/28/18 07:40 ALT 20 U/L (13-61) 11/28/18 07:40 Alkaline Phosphatase 86 U/L (45-117) 11/28/18 07:40 Total Protein 6.2 g/dl (6.4-8.2) L 11/28/18 07:40 Albumin 3.2 g/dl (3.4-5.0) L 11/28/18 07:40 Urine Color Yellow 11/28/18 07:30 Urine Appearance Clear 11/28/18 07:30 Urine pH 5.0 (5.0-8.0) 11/28/18 07:30 Ur Specific [place] 1.023 (1.010-1.035) 11/28/18 07:30 Urine Protein Negative (NEGATIVE) 11/28/18 07:30 Urine Glucose (UA) Negative (NEGATIVE) 11/28/18 07:30 Urine Ketones Negative (NEGATIVE) 11/28/18 07:30 Urine Blood Negative (NEGATIVE) 11/28/18 07:30 Urine Nitrite Negative (NEGATIVE) 11/28/18 07:30 Urine Bilirubin Negative (<2.0 mg/dL) 11/28/18 07:30 Urine Urobilinogen Negative mg/dL (0.2-1.0) 11/28/18 07:30 Ur Leukocyte Esterase Negative (NEGATIVE) 11/28/18 07:30 RPR Titer Nonreactive (NONREACTIVE) 11/28/18 07:40 lab noted bp controlled under 150 in systolic important of medication adherence clam picker narcan from pharmacy 12/01/18 11:24 Assessment: 12/01/18 11:25 mild withdrawal sx Plan: continue detox
[2018-12-01] MEDS ORDERED: ENALAPRIL MALEATE 10 MG TABLET (FP) PO SCH (22:00)
[2018-12-01] MEDS: THIAMINE HCL 100 MG TABLET (FP) PO SCH (22:11)
[2018-12-02] MEDS ORDERED: METHADONE HCL 5 MG TABLET (FOR DETOX USE ONLY) PO SCH (06:00)
[2018-12-02] MEDS: SODIUM CHLORIDE NASAL SPRAY 44 ML BOTTLE NS SCH (06:03)
[2018-12-02 06:17] VITALS: BP 127/76; PULSE 87; TEMP 97
--- NOTE | 2018-12-02 19:39 | DS ---
[facility] Detox Discharge Summary Admission Date: 11/27/18 Discharge Date: 12/02/18 - History Present History: Alcohol Dependence, Opioid Dependence Additional Comments: PATIENT REPORTS THAT HE WILL ATTEND LOCAL OUTPATIENT 12-STEP / NA / AA SUPPORT GROUPS FOR AFTERCARE. PATIENT WAS DISCHARGED FORM DETOX UNIT IN STABLE MEDICAL CONDITION. Pertinent Past History: History of C.O.P.D., HTN. - Physical Exam Results Vital Signs: Vital Signs Temperature 97 F L 12/02/18 06:16 Pulse Rate 87 12/02/18 06:16 Respiratory Rate 16 12/02/18 06:16 Blood Pressure 127/76 12/02/18 06:16 O2 Sat by Pulse Oximetry (%) Pertinent Admission Physical Exam Findings: WITHDRAWAL SYMPTOMS. Laboratory Tests 11/28/18 11/28/18 11/28/18 07:30 07:40 07:40 WBC 4.2 RBC 3.83 L Hgb 13.6 Hct 39.0 MCV 101.9 H MCH 35.4 H MCHC 34.7 RDW 13.1 Plt Count 246 MPV 8.5 Sodium 137 Potassium 3.9 Chloride 103 Carbon Dioxide 26 Anion Gap 7 L BUN 30 H Creatinine 1.2 Creat Clearance w eGFR 58.86 Random Glucose 99 Calcium 9.2 Total Bilirubin 0.8 AST 22 ALT 20 Alkaline Phosphatase 86 Total Protein 6.2 L Albumin 3.2 L Urine Color Yellow Urine Appearance Clear Urine pH 5.0 Ur Specific [place] 1.023 Urine Protein Negative Urine Glucose (UA) Negative Urine Ketones Negative Urine Blood Negative Urine Nitrite Negative Urine Bilirubin Negative Urine Urobilinogen Negative Ur Leukocyte Esterase Negative RPR Titer 11/28/18 11/29/18 07:40 07:00 WBC RBC Hgb Hct MCV MCH MCHC RDW Plt Count MPV Sodium Potassium Chloride Carbon Dioxide Anion Gap BUN 16 Creatinine Creat Clearance w eGFR Random Glucose Calcium Total Bilirubin AST ALT Alkaline Phosphatase Total Protein Albumin Urine Color Urine Appearance Urine pH Ur Specific [place] Urine Protein Urine Glucose (UA) Urine Ketones Urine Blood Urine Nitrite Urine Bilirubin Urine Urobilinogen Ur Leukocyte Esterase RPR Titer Nonreactive LABS NOTED. - Treatment Hospital Course: Detox Protocol Followed, Detoxed Safely, Responded well, Discharged Condition Good Patient has Accepted a Rehab Referral to: PT. WILL ATTEND LOCAL 12-STEP/NA/AA OUTPATIENT SUPPORT GROUPS FOR AFTERCARE - Medication Discharge Medications: Ambulatory Orders Albuterol Sulfate [Proair Hfa -] 2 inh PO QID PRN 11/20/15 Aspirin [ASA -] 81 mg PO DAILY #30 tab 10/28/18 Enalapril Maleate [Vasotec] 20 mg PO DAILY #30 tablet 10/28/18 Albuterol Sulfate Inhaler - [Ventolin HFA Inhaler -] 2 puff IH Q6H PRN #1 inhaler 12/01/18 Enalapril Maleate [Vasotec -] 20 mg PO BID #60 tablet 12/01/18 Enalapril Maleate [Vasotec] 20 mg PO BID 12/01/18 Hydrochlorothiazide [Hctz -] 25 mg PO DAILY #30 tablet 12/01/18 Naloxone HCl [Narcan] 4 mg NS ASDIR PRN #1 spray 12/01/18 Nifedipine ER [Procardia XL -] 60 mg PO DAILY #30 tab.er.24 12/01/18 Tiotropium [place] [Spiriva Respimat] 1 puff IH DAILY #1 inhaler 12/01/18 - Diagnosis (1) Alcohol dependence Status: Acute Qualifiers: Substance use status: uncomplicated Qualified Code(s): F10.20 - Alcohol dependence, uncomplicated (2) Opioid dependence Status: Acute Qualifiers: Substance use status: uncomplicated Qualified Code(s): F11.20 - Opioid dependence, uncomplicated (3) COPD (chronic obstructive pulmonary disease) with emphysema Status: Chronic Qualifiers: Emphysema type: unspecified Qualified Code(s): J43.9 - Emphysema, unspecified (4) HTN (hypertension) Status: Chronic Qualifiers: Hypertension type: essential hypertension - AMA Did Patient Leave Against Medical Advice: No
== END 2018-12-02 08:45 | disposition home or self-care (01) | DRG 897 ==
LOC: YASAS 15:17 → Y3N 18:26
PROVIDERS: ADMIT Surgery; ATTEND Surgery
PROC: HZ2ZZZZ Detoxification Services for Substance Abuse Treatment (ICD-10-PCS; principal; 2018-11-27)
DX: F11.23 Opioid dependence with withdrawal (principal); F10.230 Alcohol dependence with withdrawal, uncomplicated; I10 Essential (primary) hypertension; J44.9 Chronic obstructive pulmonary disease, unspecified
CPT/HCPCS: 36415; 80053; 81003; 84520; 85027; 86593; J0735

== ENCOUNTER 2019-09-30 11:02 | Inpatient (IN) | payer OTHER ==
[2019-09-30 11:52] VITALS: BMI 25.9
--- NOTE | 2019-09-30 14:02 | HP ---
CIWA Score Nausea/Vomitin Muscle Tremors: 4-Moderate,w/Arms Extend Anxiety: 4-Mod. Anxious/Guarded Agitation: 1-Slight > Activity Paroxysmal Sweats: No Perspiration Orientation: 1-Uncertain about Date Tacttile Disturbances: 0-None Auditory Disturbances: 0-None Visual Disturbances: 0-None Headache: 2-Mild CIWA-Ar Total Score: 14 - Admission Criteria OASAS Guidelines: Admission for Medically Managed Detox: Requires at least one of the followin. CIWA greater than 12 2. Seizures within the past 24 hours 3. Delirium tremens within the past 24 hours 4. Hallucinations within the past 24 hours 5. Acute intervention needed for co occurring medical disorder 6. Acute intervention needed for co occurring psychiatric disorder 7. Severe withdrawal that cannot be handled at a lower level of care (continued vomiting, continued diarrhea, abnormal vital signs) requiring intravenous medication and/or fluids 8. Patient presents the following: CIWA greater than 12 Admission Criteria Met: Admission criteria met Admitting History and Physical - Admission History Source: Patient, Medical Record Limitations to Obtaining History: No Limitations - Past Medical History Cardiovascular: Yes: HTN Pulmonary: Yes: COPD Gastrointestinal: Yes: Constipation Psych: Yes: Addictions, Anxiety - Smoking History Smoking history: Former smoker Have you smoked in the past 12 months: Yes Aproximately how many cigarettes per day: 4 If you are a former smoker, when did you quit?: May 2019 - Alcohol/Substance Use Hx Alcohol Use: Yes - Social History Usual Living Arrangement: Yes: Alone, Other (has own apartment) ADL: Support Services Admission [facility] Allergies/Adverse Reactions: Allergies Allergy/AdvReac Type Severity Reaction Status Date / Time No Known Allergies Allergy Verified 09/30/19 11:33 History of Present Illness: 79 yo gentleman here for detox from alcohol. Patient initially requesting detox from methadone - on [facility] MMTP 70mg for several months and dosed today. I explained he cannot be detoxed until he has tapered down to 30mg but that it is not advisable and would be helpful for him to stay on MMTP. No overdose, no seizures nor black outs. This is one of several admissions for detox. Patient is not on disability, on SSI, lives in own apartment. Last time in ED was April for COPD. Exam Limitations: No Limitations - Ebola screening Have you traveled outside of the country in the last 21 days: No (N) Have you had contact with anyone from an Ebola affected area: No Do you have a fever: No - Review of Systems Constitutional: Malaise, Changes in sleep, Weakness EENT: reports: Hearing Loss (left ear), Nose Congestion Respiratory: reports: SOB with Exertion Patient History - Patient Medical History Hx Anemia: No Hx Asthma: No Hx Chronic Obstructive Pulmonary Disease (COPD): Yes (ON MDI) Hx Cancer: No Hx Cardiac Disorders: Yes (on nifedipine not sure why) Hx Congestive Heart Failure: No Hx Hypertension: Yes (on meds) Hx Hypercholesterolemia: No Hx Pacemaker: No HX Cerebrovascular Accident: No Hx Seizures: No Hx Dementia: No Hx Diabetes: No Hx Gastrointestinal Disorders: No Hx Liver Disease: No Hx Genitourinary Disorders: Yes (? BPH nocturia) Hx Sexually Transmitted Disorders: No Hx Renal Disease (ESRD): No Hx Thyroid Disease: No Hx Human Immunodeficiency Virus (HIV): No (NEGATIVE HX last 2016, declines further testing ) Hx Hepatitis C: No Hx Depression: No (insomnia, anxiety) Hx Suicide Attempt: No Hx Bipolar Disorder: No Hx Schizophrenia: No - Patient Surgical History Past Surgical History: Yes Hx Neurologic Surgery: No Hx Cataract Extraction: No Hx Cardiac Surgery: No Hx Lung Surgery: Yes (pneumothorax about 2005 left) Hx Breast Surgery: No Hx Breast Biopsy: No Hx Abdominal Surgery: No Hx Appendectomy: No Hx Cholecystectomy: No Hx Genitourinary Surgery: No Hx Section: No Hx Orthopedic Surgery: Yes (left rotator cuff tear may 2019) Hx Hysterectomy: No Anesthesia Reaction: No - PPD History Previous Implant?: Yes Documented Results: Positive w/proof (quantiferon positive) Date: 11/24/17 (cxr negative) Results: positive PPD to be Administered?: No - Reproductive History Patient is a Female of Child Bearing Age (11 -55 yrs old): No - Smoking Cessation Smoking history: Former smoker (stopped in smoking May 2019) Have you smoked in the past 12 months: Yes Aproximately how many cigarettes per day: 4 Cigars Per Day: 0 Hx Chewing Tobacco Use: No Initiated information on smoking cessation: No - Substance & Tx. History Hx Alcohol Use: Yes Hx Substance Use: Yes Substance Use Type: Alcohol, Heroin Hx Substance Use Treatment: Yes (detox, rehab, suboxone, MMTP) - Substances abused Heroin Substance route: Inhalation Frequency: Daily Amount used: 5-6 bags/daily Age of first use: 20 Date of last use: 09/30/19 Alcohol Substance route: Oral Frequency: Daily Amount used: 1/2 - 1 pint Age of first use: 23 Date of last use: 09/29/19 Admission Physical Exam [facility] - Vital Signs Vital Signs: Vital Signs - 24 hr 09/30/19 11:28 Temperature 96.2 F L Pulse Rate 92 H Respiratory 18 Rate Blood Pressure 139/73 - Physical General Appearance: Yes: Nourished, Appropriately Dressed, Moderate Distress, Tremorous, Anxious HEENTM: Yes: EOMI, Normocephalic, Normal Voice, Pharynx Normal, Hearing Decreased, Nasal Congestion, Rhinorrhea, Other (dentures upper and lower) Respiratory: Yes: No Respiratory Distress, Wheezing, Other (Dyspnea on exertion) Neck: Yes: No masses,lesions,Nodules Breast: Yes: Breast Exam Deferred Cardiology: Yes: Regular Rhythm, Regular Rate Abdominal: Yes: Flat Genitourinary: Yes: Nocturia Back: Yes: Decreased Range of Motion (mild kyphosis) Musculoskeletal: Yes: Gait Steady, Joint Stiffness, Other (reduced ROM in left arm (secondary to rotator cuff surgery); 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) Extremities: Yes: Tremors Neurological: Yes: Fully Oriented, Alert, Normal Mood/Affect, Normal Response Integumentary: Yes: Normal Color, Warm Lymphatic: Yes: Within Normal Limits - Diagnostic (1) Alcohol dependence with withdrawal, uncomplicated Current Visit: Yes Status: Acute (2) Methadone maintenance therapy patient Current Visit: Yes Status: Chronic (3) COPD (chronic obstructive pulmonary disease) with emphysema Current Visit: Yes Status: Chronic Qualifiers: Emphysema type: unspecified Qualified Code(s): J43.9 - Emphysema, unspecified (4) HTN (hypertension) Current Visit: Yes Status: Chronic Qualifiers: Hypertension type: essential hypertension (5) PPD positive, treated Current Visit: Yes Status: Chronic (6) Hearing decreased Current Visit: Yes Status: Chronic Qualifiers: Laterality: left Qualified Code(s): H91.92 - Unspecified hearing loss, left ear (7) Deformity of left foot Current Visit: Yes Status: Chronic Cleared for Admission [facility] - Detox or Rehab [facility] Level of Care: Medically Managed Detox Regimen/Protocol: Librium Breathalyzer - Breathalyzer Breathalyzer: 0 Urine Drug Screen - Test Device Lot number: [id number] Expiration date: 05/03/21 - Control Is test valid?: Yes - Results Drug screen NEGATIVE: No Urine drug screen results: MOP-Opiates, MTD-Methadone Inpatient Rehab Admission - Rehab Decision to Admit Inpatient rehab admission?: No
[2019-09-30] MEDS ORDERED: METHOCARBAMOL 500 MG TABLET PO PRN (14:16)
[2019-09-30] MEDS ORDERED: MAGNESIUM HYDROX 2400MG/30ML ORAL SUSPENSION 30 ML CUP PO PRN (14:16)
[2019-09-30] MEDS ORDERED: BISMUTH SUBSALICYLATE 524 MG/30 ML UD PO PRN (14:16)
[2019-09-30] MEDS ORDERED: MAG HYDROX/AL HYDROX/SIMETH 30 ML UNIT-DOSE CUP PO PRN (14:16)
[2019-09-30] MEDS ORDERED: MAGNESIUM CITRATE 300 ML BOTTLE PO PRN (14:16)
[2019-09-30] MEDS ORDERED: MENTHOL/PHENOL 1 EACH UD MM PRN (14:16)
[2019-09-30] MEDS ORDERED: chlordiazePOXIDE HCL 10 MG CAPSULE PO PRN (14:16)
[2019-09-30] MEDS ORDERED: ACETAMINOPHEN 325 MG TABLET (FP) PO PRN ×2 (14:16)
[2019-09-30] MEDS ORDERED: chlordiazePOXIDE HCL 25 MG CAPSULE PO ONE (14:45)
[2019-09-30] MEDS: chlordiazePOXIDE HCL 10 MG CAPSULE PO SCH (18:23)
[2019-09-30] MEDS: THIAMINE HCL 100 MG TABLET (FP) PO SCH (22:24)
[2019-09-30] MEDS: chlordiazePOXIDE HCL 25 MG CAPSULE PO SCH (22:24)
[2019-09-30] MEDS: MELATONIN 5 MG TABLETS PO PRN (22:24)
[2019-10-01] MEDS ORDERED: METHADONE HCL 10 MG TABLET PO ONE (06:00)
[2019-10-01] MEDS: chlordiazePOXIDE HCL 25 MG CAPSULE PO SCH ×3 (06:30→22:30)
[2019-10-01] MEDS ORDERED: ALBUTEROL SO4 8 GM HFA INHALER IH ONE (08:22)
[2019-10-01 09:22] LABS: HEMATOCRIT 34.4 % (35.4-49); HEMOGLOBIN 11.4 GM/dL (11.7-16.9); MCHC 33.2 g/dl (32.0-35.9); MEAN CELL VOLUME 99.4 fl (80-96); MEAN PLT VOLUME 8.6 fl (7.5-11.1); PLATELET COUNT 244 K/MM3 (134-434); RBC 3.46 M/mm3 (4.00-5.60); RDW 12.6 % (11.9-15.9); WHITE BLOOD COUNT 4.2 K/mm3 (4.0-10.0)
[2019-10-01 09:35] LABS: ALBUMIN 3.1 g/dl (3.4-5.0); BILIRUBIN,TOTAL 0.5 mg/dL (0.2-1); CALCIUM 8.8 mg/dL (8.5-10.1); CREATININE 1.6 mg/dL (0.55-1.3); POTASSIUM 4.4 mmol/L (3.5-5.1); TOT PROT 6.8 g/dl (6.4-8.2)
[2019-10-01] MEDS ORDERED: METHADONE HCL 40 MG DISPERSABLE TABLET PO SCH (10:00)
[2019-10-01] MEDS: LISINOPRIL 20 MG TABLET (FP) PO SCH (10:29)
[2019-10-01] MEDS: NIFEdipine E.R. 90 MG TABLET (FP) PO SCH (10:29)
[2019-10-01] MEDS: PRENATAL VITAMINS W/ FOLIC ACID TABLET (FP) PO SCH (10:29)
[2019-10-01] MEDS: ASPIRIN 81 MG CHEWABLE TABLETS PO SCH (10:29)
[2019-10-01] MEDS: HYDROCHLOROTHIAZIDE 25 MG TABLET (FP) PO SCH (10:29)
--- NOTE | 2019-10-01 12:33 | CONSULT ---
[facility] Psychiatric Consult - Data Date of interview: 10/01/19 Admission source: [facility] Identifying data: Patient is a 79 year old male, , father of two, unemployed, and is supported by [facility]. This is one of multiple admissions for patient. Patient admitted to for alcohol and opiate dependenece. Substance Abuse History: Smoking Cessation. Smoking history: Former smoker ( stopped in smoking May 2019). Have you smoked in the past 12 months: Yes. Aproximately how many cigarettes per day: 4. Cigars Per Day: 0. Hx Chewing Tobacco Use: No. Initiated information on smoking cessation: No. - Substance & Tx. History. Hx Alcohol Use: Yes. Hx Substance Use: Yes. Substance Use Type : Alcohol, Heroin. Hx Substance Use Treatment: Yes (detox, rehab, suboxone, MMTP). - Substances abused. Heroin. Substance route: Inhalation. Frequency: Daily. Amount used: 5-6 bags/daily. Age of first use: 20. Date of last use: 09/30/19. Alcohol. Substance route: Oral. Frequency: Daily. Amount used: 1/2 - 1 pint. Age of first use: 23. Date of last use: 09/29/19 Medical History: hypertension, COPD, BPH, pneumothorax in 2004, surgery for left rotator cuff tear in may 2019 Psychiatric History: Patient denies history of psychiatric hospitalizations, outpatient care, and suicide attempt. Physical/Sexual Abuse/Trauma History: denies. Mental Status Exam - Mental Status Exam Alert and Oriented to: Time, Place, Person Cognitive Function: Good Patient Appearance: Well Groomed Mood: Withdrawn Affect: Appropriate Patient Behavior: Cooperative Speech Pattern: Clear, Appropriate Voice Loudness: Normal Thought Process: Intact, Goal Oriented Thought Disorder: Not Present Hallucinations: Denies Suicidal Ideation: Denies Homicidal Ideation: Denies Insight/Judgement: Poor Sleep: Fair Appetite: Fair Muscle strength/Tone: Normal Gait/Station: Normal Psychiatric Findings - Problem List ([place] 1, 2,3) (1) Alcohol dependence with withdrawal, uncomplicated Current Visit: Yes Status: Acute (2) Methadone maintenance therapy patient Current Visit: Yes Status: Chronic (3) Opioid dependence Current Visit: Yes Status: Acute Qualifiers: Substance use status: uncomplicated Qualified Code(s): F11.20 - Opioid dependence, uncomplicated - Initial Treatment Plan Initial Treatment Plan: Psychoeducation provided. Detoxification in progress. Observation.
--- NOTE | 2019-10-01 12:52 | PN ---
[facility] CIWA - CIWA Score Nausea/Vomitin-Mild Nausea/No Vomiting Muscle Tremors: 4-Moderate,w/Arms Extend Anxiety: 2 Agitation: 3 Paroxysmal Sweats: 3 Orientation: 0-Oriented Tacttile Disturbances: 0-None Auditory Disturbances: 0-None Visual Disturbances: 0-None Headache: 0-None Present CIWA-Ar Total Score: 13 S Progress Note (SOAP) Subjective: Poor sleep Objective: 10/01/19 12:52 Last Vital Signs Temp Pulse Resp BP Pulse Ox 97.6 F 75 18 153/87 10/01/19 09:25 10/01/19 09:25 10/01/19 09:25 10/01/19 09:25 Elevated b/p: has htn (on medication) Laboratory Tests 10/01/19 10/01/19 10/01/19 07:20 07:20 07:20 WBC 4.2 RBC 3.46 L Hgb 11.4 L Hct 34.4 L MCV 99.4 H MCH 33.0 MCHC 33.2 RDW 12.6 Plt Count 244 MPV 8.6 Sodium 136 Potassium 4.4 Chloride 103 Carbon Dioxide 32 Anion Gap 2 L BUN 39.0 H Creatinine 1.6 H Est GFR (CKD-EPI)AfAm 47.46 Est GFR (CKD-EPI)NonAf 40.95 Random Glucose 101 Calcium 8.8 Total Bilirubin 0.5 AST 22 ALT 22 Alkaline Phosphatase 110 Total Protein 6.8 Albumin 3.1 L RPR Titer Nonreactive Labs reviewed: h/h 11.4/34.4, bun 39, creat 1.6, GFR low, albumin 3.1 (L) Assessment: 10/01/19 13:05 Withdrawal sxs Noted with HTN, Anemia, MELANIE and hypoalbuminemia Plan: Continue detox HTN: on medication, monitor b/p Anemia: most likely r/t drinking, continue vitamin, follow up with PCP for monitoring MELANIE: encouraged PO water intake Hypoalbuminemia: encouraged diet
--- NOTE | 2019-10-01 15:14 | EKG ---
Test Reason : Blood Pressure : / mmHG Vent. Rate : 075 BPM Atrial Rate : 075 BPM P-R Int : 194 ms QRS Dur : 080 ms QT Int : 368 ms P-R-T Axes : 073 058 051 degrees QTc Int : 410 ms NORMAL SINUS RHYTHM BIATRIAL ENLARGEMENT ABNORMAL ECG WHEN COMPARED WITH ECG OF 19-JUN-2018 17:00, NO SIGNIFICANT CHANGE WAS FOUND Confirmed by MD GEOVANNY, TAHIRA ([id number]) on 10/01/2019 3:14:22 PM Referred By: Confirmed By:TAHIRA SMALL MD
[2019-10-01] MEDS: THIAMINE HCL 100 MG TABLET (FP) PO SCH (22:30)
[2019-10-01] MEDS: MELATONIN 5 MG TABLETS PO PRN (22:30)
[2019-10-02] MEDS: chlordiazePOXIDE 5 MG CAPSULE PO SCH ×3 (05:47→22:11)
[2019-10-02] MEDS ORDERED: METHADONE HCL 10 MG TABLET PO ONE (09:06)
[2019-10-02] MEDS ORDERED: METHADONE HCL 10 MG TABLET ONE (09:30)
[2019-10-02] MEDS ORDERED: METHADONE 40 MG, METHADONE 30 MG PO ONE (09:30)
[2019-10-02] MEDS ORDERED: METHADONE HCL 40 MG DISPERSABLE TABLET ONE (09:31)
--- NOTE | 2019-10-02 09:56 | PN ---
[facility] CIWA - CIWA Score Nausea/Vomitin-Mild Nausea/No Vomiting Muscle Tremors: 2 Anxiety: 2 Agitation: 2 Paroxysmal Sweats: No Perspiration Orientation: 0-Oriented Tacttile Disturbances: 1-Very Mild Itch/Numbness Auditory Disturbances: 0-None Visual Disturbances: 0-None Headache: 2-Mild CIWA-Ar Total Score: 10 S Progress Note (SOAP) Subjective: alert,irritable,anxious,interrupted sleep,tremor Objective: 10/02/19 09:55 Vital Signs Temperature 98.1 F 10/02/19 09:06 Pulse Rate 104 H 10/02/19 09:06 Respiratory Rate 18 10/02/19 09:06 Blood Pressure 130/65 10/02/19 09:06 O2 Sat by Pulse Oximetry (%) 10/02/19 09:55 Laboratory Last Values WBC 4.2 K/mm3 (4.0-10.0) 10/01/19 07:20 RBC 3.46 M/mm3 (4.00-5.60) L 10/01/19 07:20 Hgb 11.4 GM/dL (11.7-16.9) L 10/01/19 07:20 Hct 34.4 % (35.4-49) L 10/01/19 07:20 MCV 99.4 fl (80-96) H 10/01/19 07:20 MCH 33.0 pg (25.7-33.7) 10/01/19 07:20 MCHC 33.2 g/dl (32.0-35.9) 10/01/19 07:20 RDW 12.6 % (11.9-15.9) 10/01/19 07:20 Plt Count 244 K/MM3 (134-434) 10/01/19 07:20 MPV 8.6 fl (7.5-11.1) 10/01/19 07:20 Sodium 136 mmol/L (136-145) 10/01/19 07:20 Potassium 4.4 mmol/L (3.5-5.1) 10/01/19 07:20 Chloride 103 mmol/L (98-107) 10/01/19 07:20 Carbon Dioxide 32 mmol/L (21-32) 10/01/19 07:20 Anion Gap 2 MMOL/L (8-16) L 10/01/19 07:20 BUN 39.0 mg/dL (7-18) H 10/01/19 07:20 Creatinine 1.6 mg/dL (0.55-1.3) H 10/01/19 07:20 Est GFR (CKD-EPI)AfAm 47.46 10/01/19 07:20 Est GFR (CKD-EPI)NonAf 40.95 10/01/19 07:20 Random Glucose 101 mg/dL (74-106) 10/01/19 07:20 Calcium 8.8 mg/dL (8.5-10.1) 10/01/19 07:20 Total Bilirubin 0.5 mg/dL (0.2-1) 10/01/19 07:20 AST 22 U/L (15-37) 10/01/19 07:20 ALT 22 U/L (13-61) 10/01/19 07:20 Alkaline Phosphatase 110 U/L (45-117) 10/01/19 07:20 Total Protein 6.8 g/dl (6.4-8.2) 10/01/19 07:20 Albumin 3.1 g/dl (3.4-5.0) L 10/01/19 07:20 RPR Titer Nonreactive (NONREACTIVE) 10/01/19 07:20 Assessment: 10/02/19 09:56 withdrawal symptom Plan: continue librium regimen,bun 39,creatinine 1.6,encourage oral fluid,repeat cmp pending r/o renal insufficiency
[2019-10-02] MEDS: LISINOPRIL 20 MG TABLET (FP) PO SCH (10:37)
[2019-10-02] MEDS: ASPIRIN 81 MG CHEWABLE TABLETS PO SCH (10:37)
[2019-10-02] MEDS: HYDROCHLOROTHIAZIDE 25 MG TABLET (FP) PO SCH (10:37)
[2019-10-02] MEDS: PRENATAL VITAMINS W/ FOLIC ACID TABLET (FP) PO SCH (10:37)
[2019-10-02] MEDS: NIFEdipine E.R. 90 MG TABLET (FP) PO SCH (10:37)
[2019-10-02 10:46] LABS: BLOOD UREA NITROGEN 32.6 mg/dL (7-18); CALCIUM 9.4 mg/dL (8.5-10.1); CREATININE 1.3 mg/dL (0.55-1.3); POTASSIUM 4.5 mmol/L (3.5-5.1)
[2019-10-02] MEDS: PATIENT'S OWN MEDICATION (NON-FORMULARY) (Umeclidinium Bromide [Incruse Ellipta] 62.5 MCG) IH SCH ×2 (12:45→14:00)
[2019-10-02] MEDS: MELATONIN 5 MG TABLETS PO PRN (22:11)
[2019-10-02] MEDS: THIAMINE HCL 100 MG TABLET (FP) PO SCH (22:11)
[2019-10-03] MEDS ORDERED: chlordiazePOXIDE HCL 10 MG CAPSULE PO PRN
[2019-10-03] MEDS ORDERED: METHADONE HCL 10 MG TABLET ONE (05:17)
[2019-10-03] MEDS ORDERED: METHADONE HCL 40 MG DISPERSABLE TABLET ONE (05:17)
[2019-10-03] MEDS: chlordiazePOXIDE HCL 10 MG CAPSULE PO SCH ×3 (05:46→21:34)
[2019-10-03] MEDS: METHADONE 40 MG, METHADONE 30 MG PO SCH (05:46)
[2019-10-03] MEDS ORDERED: METHADONE HCL 40 MG DISPERSABLE TABLET PO SCH (06:00)
[2019-10-03] MEDS: ALBUTEROL SO4 8 GM HFA INHALER IH PRN ×2 (07:03→21:37)
[2019-10-03] MEDS: PATIENT'S OWN MEDICATION (NON-FORMULARY) (Umeclidinium Bromide [Incruse Ellipta] 62.5 MCG) IH SCH ×2 (08:38→10:19)
[2019-10-03] MEDS ORDERED: ALBUTEROL SO4 2.5/IPRATROPIUM 0.5 INH SOL 3 ML VIAL.NEB. NEB PRN (09:01)
[2019-10-03] MEDS ORDERED: ALBUTEROL SO4 0.042% IH SOL 1.25 MG/3 ML VIAL.NEB NEB PRN (09:09)
[2019-10-03] MEDS ORDERED: ALBUTEROL SO4 0.083% IH SOL 2.5 MG/3 ML VIAL.NEB. NEB PRN (09:31)
--- NOTE | 2019-10-03 10:09 | PN ---
[facility] CIWA - CIWA Score Nausea/Vomitin-No Nausea/No Vomiting Muscle Tremors: None Anxiety: 2 Agitation: 0-Normal Activity Paroxysmal Sweats: 2 Orientation: 0-Oriented Tacttile Disturbances: 0-None Auditory Disturbances: 0-None Visual Disturbances: 0-None Headache: 0-None Present CIWA-Ar Total Score: 4 S Progress Note (SOAP) Subjective: c/o mild withdrawal symptoms. Objective: 10/03/19 10:09 Vital Signs 10/03/19 10/03/19 10/03/19 03:30 06:32 09:16 Temperature 97.9 F 97.8 F Pulse Rate 84 88 Respiratory 18 18 18 Rate Blood Pressure 102/50 L 129/65 Laboratory Last Values WBC 4.2 K/mm3 (4.0-10.0) 10/01/19 07:20 RBC 3.46 M/mm3 (4.00-5.60) L 10/01/19 07:20 Hgb 11.4 GM/dL (11.7-16.9) L 10/01/19 07:20 Hct 34.4 % (35.4-49) L 10/01/19 07:20 MCV 99.4 fl (80-96) H 10/01/19 07:20 MCH 33.0 pg (25.7-33.7) 10/01/19 07:20 MCHC 33.2 g/dl (32.0-35.9) 10/01/19 07:20 RDW 12.6 % (11.9-15.9) 10/01/19 07:20 Plt Count 244 K/MM3 (134-434) 10/01/19 07:20 MPV 8.6 fl (7.5-11.1) 10/01/19 07:20 Sodium 139 mmol/L (136-145) 10/02/19 07:00 Potassium 4.5 mmol/L (3.5-5.1) 10/02/19 07:00 Chloride 106 mmol/L (98-107) 10/02/19 07:00 Carbon Dioxide 26 mmol/L (21-32) 10/02/19 07:00 Anion Gap 8 MMOL/L (8-16) 10/02/19 07:00 BUN 32.6 mg/dL (7-18) H 10/02/19 07:00 Creatinine 1.3 mg/dL (0.55-1.3) 10/02/19 07:00 Est GFR (CKD-EPI)AfAm 61.00 10/02/19 07:00 Est GFR (CKD-EPI)NonAf 52.63 10/02/19 07:00 Random Glucose 90 mg/dL (74-106) 10/02/19 07:00 Calcium 9.4 mg/dL (8.5-10.1) 10/02/19 07:00 Total Bilirubin 0.5 mg/dL (0.2-1) 10/01/19 07:20 AST 22 U/L (15-37) 10/01/19 07:20 ALT 22 U/L (13-61) 10/01/19 07:20 Alkaline Phosphatase 110 U/L (45-117) 10/01/19 07:20 Total Protein 6.8 g/dl (6.4-8.2) 10/01/19 07:20 Albumin 3.1 g/dl (3.4-5.0) L 10/01/19 07:20 RPR Titer Nonreactive (NONREACTIVE) 10/01/19 07:20 Labs noted. Assessment: 10/03/19 10:16 AOX3, in no respiratory distress. Full ROM, ambulating in the unit. Mild Withdrawal symptoms. For d/c tomorrow. Plan: continue detox. D/C in AM.
[2019-10-03] MEDS: LISINOPRIL 20 MG TABLET (FP) PO SCH (10:17)
[2019-10-03] MEDS: ASPIRIN 81 MG CHEWABLE TABLETS PO SCH (10:17)
[2019-10-03] MEDS: HYDROCHLOROTHIAZIDE 25 MG TABLET (FP) PO SCH (10:17)
[2019-10-03] MEDS: PRENATAL VITAMINS W/ FOLIC ACID TABLET (FP) PO SCH (10:17)
[2019-10-03] MEDS: NIFEdipine E.R. 90 MG TABLET (FP) PO SCH (10:17)
[2019-10-03] MEDS: FLUTICASONE PROP 0.05% 16 GM NASAL SPRAY NS SCH (10:18)
[2019-10-03] MEDS: THIAMINE HCL 100 MG TABLET (FP) PO SCH (21:34)
[2019-10-03] MEDS: MELATONIN 5 MG TABLETS PO PRN (21:34)
[2019-10-04] MEDS ORDERED: chlordiazePOXIDE HCL 10 MG CAPSULE PO ONE (05:00)
[2019-10-04] MEDS ORDERED: METHADONE HCL 10 MG TABLET ONE (05:13)
[2019-10-04] MEDS ORDERED: METHADONE HCL 40 MG DISPERSABLE TABLET ONE (05:15)
[2019-10-04] MEDS: METHADONE 40 MG, METHADONE 30 MG PO SCH (05:58)
[2019-10-04] MEDS: ALBUTEROL SO4 8 GM HFA INHALER IH PRN (08:02)
--- NOTE | 2019-10-04 08:15 | PN ---
[facility] CIWA - CIWA Score Nausea/Vomitin-No Nausea/No Vomiting Muscle Tremors: None Anxiety: 1-Mildly Anxious Agitation: 1-Slight > Activity Paroxysmal Sweats: No Perspiration Orientation: 0-Oriented Tacttile Disturbances: 0-None Auditory Disturbances: 0-None Visual Disturbances: 0-None Headache: 0-None Present CIWA-Ar Total Score: 2 BHS Progress Note (SOAP) Subjective: alert,no complaint Objective: 10/04/19 08:13 Vital Signs Temperature 97.7 F 10/04/19 06:36 Pulse Rate 76 10/04/19 06:36 Respiratory Rate 18 10/04/19 06:36 Blood Pressure 126/58 L 10/04/19 06:36 O2 Sat by Pulse Oximetry (%) 100 10/03/19 10:32 Assessment: 10/04/19 08:14 detox completed,no withdrawal symptom Plan: discharge today,follow up with after care program as arrangement
--- NOTE | 2019-10-04 08:23 | DS ---
[facility] Detox Discharge Summary Admission Date: 09/30/19 Discharge Date: 10/04/19 - History Present History: Alcohol Dependence Additional Comments: patient has all medications at home,aware of abnormal labs with elevation of bun ,he will follow up with his pmd after discharge,encourage oral fluid Pertinent Past History: copd hypertension asthma positive ppd - Physical Exam Results Vital Signs: Vital Signs Temperature 97.7 F 10/04/19 06:36 Pulse Rate 76 10/04/19 06:36 Respiratory Rate 18 10/04/19 06:36 Blood Pressure 126/58 L 10/04/19 06:36 O2 Sat by Pulse Oximetry (%) 100 10/03/19 10:32 Pertinent Admission Physical Exam Findings: withdrawal signs and symptom Laboratory Last Values WBC 4.2 K/mm3 (4.0-10.0) 10/01/19 07:20 RBC 3.46 M/mm3 (4.00-5.60) L 10/01/19 07:20 Hgb 11.4 GM/dL (11.7-16.9) L 10/01/19 07:20 Hct 34.4 % (35.4-49) L 10/01/19 07:20 MCV 99.4 fl (80-96) H 10/01/19 07:20 MCH 33.0 pg (25.7-33.7) 10/01/19 07:20 MCHC 33.2 g/dl (32.0-35.9) 10/01/19 07:20 RDW 12.6 % (11.9-15.9) 10/01/19 07:20 Plt Count 244 K/MM3 (134-434) 10/01/19 07:20 MPV 8.6 fl (7.5-11.1) 10/01/19 07:20 Sodium 139 mmol/L (136-145) 10/02/19 07:00 Potassium 4.5 mmol/L (3.5-5.1) 10/02/19 07:00 Chloride 106 mmol/L (98-107) 10/02/19 07:00 Carbon Dioxide 26 mmol/L (21-32) 10/02/19 07:00 Anion Gap 8 MMOL/L (8-16) 10/02/19 07:00 BUN 32.6 mg/dL (7-18) H 10/02/19 07:00 Creatinine 1.3 mg/dL (0.55-1.3) 10/02/19 07:00 Est GFR (CKD-EPI)AfAm 61.00 10/02/19 07:00 Est GFR (CKD-EPI)NonAf 52.63 10/02/19 07:00 Random Glucose 90 mg/dL (74-106) 10/02/19 07:00 Calcium 9.4 mg/dL (8.5-10.1) 10/02/19 07:00 Total Bilirubin 0.5 mg/dL (0.2-1) 10/01/19 07:20 AST 22 U/L (15-37) 10/01/19 07:20 ALT 22 U/L (13-61) 10/01/19 07:20 Alkaline Phosphatase 110 U/L (45-117) 10/01/19 07:20 Total Protein 6.8 g/dl (6.4-8.2) 10/01/19 07:20 Albumin 3.1 g/dl (3.4-5.0) L 10/01/19 07:20 RPR Titer Nonreactive (NONREACTIVE) 10/01/19 07:20 - Treatment Hospital Course: Detox Protocol Followed, Detoxed Safely, Responded well, Discharged Condition Good Patient has Accepted a Rehab Referral to: declined - Medication Discharge Medications: Ambulatory Orders Aspirin [ASA -] 81 mg PO DAILY #30 tab 10/28/18 Albuterol Sulfate Inhaler - [Ventolin HFA Inhaler -] 2 puff IH Q6H PRN #1 inhaler 12/01/18 Hydrochlorothiazide [Hctz -] 25 mg PO DAILY #30 tablet 12/01/18 Lisinopril 20 mg PO DAILY 09/30/19 Methadone [Dolophine -] 70 mg PO DAILY 09/30/19 Nifedipine [Nifedipine ER] 90 mg PO DAILY 09/30/19 Umeclidinium [place] [Incruse Ellipta] 62.5 mcg IH DAILY 09/30/19 - Diagnosis (1) Alcohol dependence with withdrawal, uncomplicated Current Visit: Yes Status: Acute (2) COPD (chronic obstructive pulmonary disease) with emphysema Current Visit: Yes Status: Chronic Qualifiers: Emphysema type: unspecified Qualified Code(s): J43.9 - Emphysema, unspecified (3) HTN (hypertension) Current Visit: Yes Status: Chronic Qualifiers: Hypertension type: essential hypertension (4) Hearing decreased Current Visit: Yes Status: Chronic Qualifiers: Laterality: left Qualified Code(s): H91.92 - Unspecified hearing loss, 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
[2019-10-04 09:58] VITALS: BP 102/62; PULSE 79; TEMP 97.9
[2019-10-04] MEDS: PRENATAL VITAMINS W/ FOLIC ACID TABLET (FP) PO SCH (10:43)
[2019-10-04] MEDS: NIFEdipine E.R. 90 MG TABLET (FP) PO SCH (10:43)
[2019-10-04] MEDS: LISINOPRIL 20 MG TABLET (FP) PO SCH (10:43)
[2019-10-04] MEDS: ASPIRIN 81 MG CHEWABLE TABLETS PO SCH (10:44)
[2019-10-04] MEDS: FLUTICASONE PROP 0.05% 16 GM NASAL SPRAY NS SCH (10:44)
[2019-10-04] MEDS: HYDROCHLOROTHIAZIDE 25 MG TABLET (FP) PO SCH (10:46)
== END 2019-10-04 12:10 | disposition home or self-care (01) | DRG 897 ==
LOC: YASAS 11:02 → Y6N 14:44
PROVIDERS: ADMIT Allergy & Immunology; ATTEND Allergy & Immunology
PROC: HZ2ZZZZ Detoxification Services for Substance Abuse Treatment (ICD-10-PCS; principal; 2019-09-30)
DX: F10.230 Alcohol dependence with withdrawal, uncomplicated (principal); F11.20 Opioid dependence, uncomplicated; N17.9 Acute kidney failure, unspecified; I10 Essential (primary) hypertension; J43.9 Emphysema, unspecified; J45.909 Unspecified asthma, uncomplicated; R76.11 Nonspecific reaction to tuberculin skin test without active tuberculosis; N28.9 Disorder of kidney and ureter, unspecified; D64.9 Anemia, unspecified; R77.0 Abnormality of albumin; N40.0 Benign prostatic hyperplasia without lower urinary tract symptoms; Z87.891 Personal history of nicotine dependence
CPT/HCPCS: 36415; 71046-TC-FY; 80048; 80053; 85027; 86593; 93005; 93010; 94640

== ENCOUNTER 2020-12-28 12:11 | Inpatient (IN) | payer OTHER ==
[2020-12-28 13:49] VITALS: BMI 27.0
[2020-12-28] MEDS: ALBUTEROL SO4 HFA INHALER IH PRN ×3 (14:30→23:33)
[2020-12-28] MEDS ORDERED: METHOCARBAMOL 500 MG TABLET PO PRN (15:19)
[2020-12-28] MEDS ORDERED: ONDANSETRON *ODT* 4 MG TABLET SL PRN (15:19)
[2020-12-28] MEDS ORDERED: ACETAMINOPHEN 325 MG TABLET (FP) PO PRN ×2 (15:19)
[2020-12-28] MEDS ORDERED: cloNIDine HCL 0.1 MG TABLET PO PRN (15:19)
[2020-12-28] MEDS ORDERED: MAGNESIUM HYDROX 2400MG/30ML ORAL SUSPENSION 30 ML CUP PO PRN (15:19)
[2020-12-28] MEDS ORDERED: MAGNESIUM CITRATE 300 ML BOTTLE PO PRN (15:19)
[2020-12-28] MEDS ORDERED: MAG HYDROX/AL HYDROX/SIMETH 30 ML UNIT-DOSE CUP PO PRN (15:19)
[2020-12-28] MEDS ORDERED: IBUPROFEN 400 MG TABLET (FP) PO PRN (15:19)
[2020-12-28] MEDS ORDERED: BISMUTH SUBSALICYLATE 524 MG/30 ML UD PO PRN (15:19)
[2020-12-28] MEDS ORDERED: MENTHOL/PHENOL 1 EACH UD MM PRN (15:19)
[2020-12-28] MEDS ORDERED: METHADONE HCL 10 MG TABLET (FOR DETOX USE ONLY) PO ONE (16:00)
[2020-12-28] MEDS: MELATONIN 5 MG TABLETS PO SCH (23:27)
[2020-12-28] MEDS: THIAMINE HCL 100 MG TABLET (FP) PO SCH (23:27)
[2020-12-29] MEDS: hydrOXYzine PAMOATE 25 MG CAPSULE (FP) PO PRN ×2 (05:06→22:15)
[2020-12-29] MEDS ORDERED: METHADONE HCL 10 MG TABLET (FOR DETOX USE ONLY) ONE (09:57)
[2020-12-29] MEDS ORDERED: METHADONE HCL 5 MG TABLET (FOR DETOX USE ONLY) ONE (09:58)
[2020-12-29] MEDS ORDERED: METHADONE (DETOX) 20 MG, METHADONE (DETOX) 5 MG PO ONE (10:00)
[2020-12-29] MEDS: PRENATAL VITAMINS W/ FOLIC ACID TABLET (FP) PO SCH (10:46)
[2020-12-29] MEDS: ASPIRIN 81 MG CHEWABLE TABLETS PO SCH (10:46)
[2020-12-29] MEDS: LISINOPRIL 20 MG TABLET PO SCH (10:47)
[2020-12-29] MEDS: ALBUTEROL SO4 HFA INHALER IH PRN ×2 (10:47→19:00)
[2020-12-29] MEDS: NIFEdipine E.R. 90 MG TABLET PO SCH (10:48)
[2020-12-29 11:46] LABS: POTASSIUM 4.7 mmol/L (3.5-5.1)
[2020-12-29 11:49] LABS: HEMATOCRIT 33.6 % (35.4-49); HEMOGLOBIN 11.6 GM/dL (11.7-16.9); MCH 33.8 pg (25.7-33.7); MCHC 34.4 g/dl (32.0-35.9); MEAN CELL VOLUME 98.1 fl (80-96); MEAN PLT VOLUME 8.5 fl (7.5-11.1); PLATELET COUNT 275 K/MM3 (134-434); RBC 3.42 M/mm3 (4.00-5.60); RDW 13.1 % (11.9-15.9); WHITE BLOOD COUNT 3.8 K/mm3 (4.0-10.0)
[2020-12-29 11:52] LABS: CALCIUM 9.1 mg/dL (8.5-10.1)
[2020-12-29 11:53] LABS: ALBUMIN 3.4 g/dl (3.4-5.0); BLOOD UREA NITROGEN 55.9 mg/dL (7-18)
[2020-12-29 11:55] LABS: CREATININE 1.8 mg/dL (0.55-1.3)
[2020-12-29 11:57] LABS: BILIRUBIN,TOTAL 0.8 mg/dL (0.2-1)
[2020-12-29] MEDS: THIAMINE HCL 100 MG TABLET (FP) PO SCH (22:15)
[2020-12-29] MEDS: MELATONIN 5 MG TABLETS PO SCH (22:15)
[2020-12-30] MEDS ORDERED: METHADONE HCL 10 MG TABLET (FOR DETOX USE ONLY) PO ONE (10:00)
[2020-12-30] MEDS: NIFEdipine E.R. 90 MG TABLET PO SCH (10:18)
[2020-12-30] MEDS: ALBUTEROL SO4 HFA INHALER IH PRN ×2 (10:19→22:15)
[2020-12-30] MEDS: ASPIRIN 81 MG CHEWABLE TABLETS PO SCH (10:19)
[2020-12-30] MEDS: PRENATAL VITAMINS W/ FOLIC ACID TABLET (FP) PO SCH (10:19)
[2020-12-30] MEDS: LISINOPRIL 20 MG TABLET PO SCH (10:19)
[2020-12-30 11:40] LABS: POTASSIUM 4.6 mmol/L (3.5-5.1)
[2020-12-30 11:44] LABS: CALCIUM 9.1 mg/dL (8.5-10.1)
[2020-12-30 11:45] LABS: BLOOD UREA NITROGEN 41.2 mg/dL (7-18)
[2020-12-30 11:48] LABS: CREATININE 1.6 mg/dL (0.55-1.3)
[2020-12-30] MEDS: THIAMINE HCL 100 MG TABLET (FP) PO SCH (22:15)
[2020-12-30] MEDS: MELATONIN 5 MG TABLETS PO SCH (22:15)
[2020-12-31 09:00] VITALS: BP 156/88; PULSE 96; TEMP 97.3
[2020-12-31] MEDS ORDERED: METHADONE HCL 5 MG TABLET (FOR DETOX USE ONLY) ONE (09:24)
[2020-12-31] MEDS ORDERED: METHADONE HCL 10 MG TABLET (FOR DETOX USE ONLY) ONE (09:24)
[2020-12-31] MEDS ORDERED: METHADONE (DETOX) 10 MG, METHADONE (DETOX) 5 MG PO ONE (10:00)
[2020-12-31] MEDS: LISINOPRIL 20 MG TABLET PO SCH (10:20)
[2020-12-31] MEDS: PRENATAL VITAMINS W/ FOLIC ACID TABLET (FP) PO SCH (10:20)
[2020-12-31] MEDS: ASPIRIN 81 MG CHEWABLE TABLETS PO SCH (10:20)
[2020-12-31] MEDS: NIFEdipine E.R. 90 MG TABLET PO SCH (10:23)
[2021-01-01] MEDS ORDERED: METHADONE HCL 10 MG TABLET (FOR DETOX USE ONLY) PO ONE (10:00)
[2021-01-02] MEDS ORDERED: METHADONE HCL 5 MG TABLET (FOR DETOX USE ONLY) PO ONE (06:00)
== END 2020-12-31 10:40 | disposition home or self-care (01) | DRG 897 ==
LOC: YASAS 12:11 → Y3N 14:06
PROVIDERS: ADMIT Allergy & Immunology; ATTEND Allergy & Immunology
PROC: HZ2ZZZZ Detoxification Services for Substance Abuse Treatment (ICD-10-PCS; principal; 2020-12-28)
DX: F11.23 Opioid dependence with withdrawal (principal); N17.9 Acute kidney failure, unspecified; F41.9 Anxiety disorder, unspecified; D64.9 Anemia, unspecified; I12.9 Hypertensive chronic kidney disease with stage 1 through stage 4 chronic kidney disease, or unspecified chronic kidney disease; N18.9 Chronic kidney disease, unspecified; J43.9 Emphysema, unspecified; J45.909 Unspecified asthma, uncomplicated; K59.00 Constipation, unspecified; R76.11 Nonspecific reaction to tuberculin skin test without active tuberculosis; Z87.891 Personal history of nicotine dependence
CPT/HCPCS: 36415; 80048; 80053; 85027; 86780; C9803; J0735; U0003; U0005

== ENCOUNTER 2021-12-06 17:17 | Inpatient (IN) | payer OTHER ==
[2021-12-06 21:13] VITALS: BMI 25.1
[2021-12-06] MEDS ORDERED: methaDONE HCL 10 MG TABLET (FOR DETOX USE ONLY) PO ONE (21:43)
[2021-12-06] MEDS ORDERED: NICOTINE POLACRILEX 2 MG GUM BUC PRN (21:43)
[2021-12-06] MEDS ORDERED: ACETAMINOPHEN 325 MG TABLET (FP) PO PRN ×2 (21:43)
[2021-12-06] MEDS ORDERED: guaiFENesin 200 MG/10 ML 10 ML UNIT-DOSE CUPS PO PRN (21:43)
[2021-12-06] MEDS ORDERED: BISMUTH SUBSALICYLATE 524 MG/30 ML PO PRN (21:43)
[2021-12-06] MEDS ORDERED: LOPERAMIDE HCL 2 MG CAPSULE PO PRN (21:43)
[2021-12-06] MEDS ORDERED: MAG HYDROX/AL HYDROX/SIMETH 30 ML UNIT-DOSE CUP PO PRN (21:43)
[2021-12-06] MEDS ORDERED: MAGNESIUM HYDROX 2400MG/30ML ORAL SUSPENSION 30 ML CUP PO PRN (21:43)
[2021-12-06] MEDS ORDERED: NALOXONE (NARCAN) HCL 4 MG/0.1 ML SPRAY NS PRN (21:43)
[2021-12-06] MEDS ORDERED: MENTHOL/PHENOL 1 EACH UD MM PRN (21:43)
[2021-12-06] MEDS ORDERED: DICYCLOMINE HCL 10 MG CAPSULE PO PRN (21:43)
[2021-12-06] MEDS ORDERED: PROCHLORPERAZINE MALEATE 5 MG TABLET PO PRN (21:43)
[2021-12-06] MEDS ORDERED: IBUPROFEN 400 MG TABLET (FP) PO PRN (21:43)
[2021-12-06] MEDS ORDERED: NALOXONE HCL 0.4 MG/ML VIAL IM PRN (21:43)
[2021-12-06] MEDS ORDERED: MAGNESIUM CITRATE 300 ML BOTTLE PO PRN (21:43)
[2021-12-06] MEDS ORDERED: P-EPHED 60MG/TRIPROLIDI 2.5MG TABLET PO PRN (21:43)
[2021-12-07] MEDS ORDERED: methaDONE HCL 10 MG TABLET (FOR DETOX USE ONLY) ONE ×2 (01:03→11:22)
[2021-12-07] MEDS: MELATONIN 5 MG TABLETS PO SCH ×2 (01:07→22:28)
[2021-12-07] MEDS: THIAMINE HCL 100 MG TABLET (FP) PO SCH ×2 (01:08→22:28)
[2021-12-07] MEDS ORDERED: diazePAM 5 MG TABLET ONE (06:42)
[2021-12-07] MEDS ORDERED: amLODIPine BESYLATE 5 MG TABLET (FP) ONE (06:53)
[2021-12-07] MEDS ORDERED: LISINOPRIL 10 MG TABLET ONE (06:54)
[2021-12-07] MEDS: LISINOPRIL 20 MG TABLET PO SCH ×2 (07:07→12:02)
[2021-12-07] MEDS: PRENATAL VITAMINS W/ FOLIC ACID TABLET (FP) PO SCH (11:58)
[2021-12-07] MEDS: ALBUTEROL SO4 HFA INHALER IH PRN (11:58)
[2021-12-07] MEDS: NICOTINE 14 MG/24 HOURS TOPICAL PATCH TD SCH (11:58)
[2021-12-07] MEDS: NIFEdipine E.R. 90 MG TABLET PO SCH (13:42)
[2021-12-07] MEDS: cloNIDine HCL 0.1 MG TABLET PO PRN (22:28)
[2021-12-08] MEDS ORDERED: methaDONE HCL 10 MG TABLET (FOR DETOX USE ONLY) PO ONE (10:00)
[2021-12-08] MEDS: PRENATAL VITAMINS W/ FOLIC ACID TABLET (FP) PO SCH (10:50)
[2021-12-08] MEDS: LISINOPRIL 20 MG TABLET PO SCH (10:50)
[2021-12-08] MEDS: NIFEdipine E.R. 90 MG TABLET PO SCH (10:51)
[2021-12-08] MEDS: NICOTINE 14 MG/24 HOURS TOPICAL PATCH TD SCH (10:51)
[2021-12-08 10:53] LABS: HEMATOCRIT 36.9 % (35.4-49); HEMOGLOBIN 12.2 GM/dL (11.7-16.9); MCH 32.7 pg (25.7-33.7); MCHC 33.1 g/dl (32.0-35.9); MEAN CELL VOLUME 98.9 fl (80-96); MEAN PLT VOLUME 8.6 fl (7.5-11.1); PLATELET COUNT 293 10^3/uL (134-434); RBC 3.73 M/mm3 (4.00-5.60); WHITE BLOOD COUNT 3.9 K/mm3 (4.0-10.0)
[2021-12-08 11:02] LABS: ALBUMIN 3.2 g/dl (3.4-5.0); BLOOD UREA NITROGEN 19.8 mg/dL (7-18); CALCIUM 9.2 mg/dL (8.5-10.1)
[2021-12-08 11:05] LABS: CREATININE 1.2 mg/dL (0.55-1.3)
[2021-12-08 11:07] LABS: BILIRUBIN,TOTAL 0.9 mg/dL (0.2-1)
[2021-12-08] MEDS: cloNIDine HCL 0.1 MG TABLET PO PRN (21:50)
[2021-12-08] MEDS: MELATONIN 5 MG TABLETS PO SCH (21:51)
[2021-12-08] MEDS: THIAMINE HCL 100 MG TABLET (FP) PO SCH (22:22)
[2021-12-09] MEDS ORDERED: methaDONE HCL 10 MG TABLET (FOR DETOX USE ONLY) ONE (08:54)
[2021-12-09] MEDS: LISINOPRIL 20 MG TABLET PO SCH (10:16)
[2021-12-09] MEDS: NIFEdipine E.R. 90 MG TABLET PO SCH (10:16)
[2021-12-09] MEDS: METHOCARBAMOL 500 MG TABLET PO PRN (10:16)
[2021-12-09] MEDS: PRENATAL VITAMINS W/ FOLIC ACID TABLET (FP) PO SCH (10:16)
[2021-12-09] MEDS: ALBUTEROL SO4 HFA INHALER IH PRN (10:16)
[2021-12-09] MEDS: NICOTINE 14 MG/24 HOURS TOPICAL PATCH TD SCH (10:16)
[2021-12-09] MEDS ORDERED: LISINOPRIL 20 MG TABLET PO ONE (13:45)
[2021-12-09 14:07] LABS: SARS-CoV-2 NAA Not Detected (Not Detected)
[2021-12-09] MEDS ORDERED: cloNIDine HCL 0.1 MG TABLET PO ONE (14:32)
[2021-12-09] MEDS ORDERED: BUPRENORPHINE HCL 150 MCG, BUPRENORPHINE HCL 75 MCG BC ONE (14:32)
[2021-12-09] MEDS ORDERED: diazePAM 5 MG TABLET PO PRN (14:32)
[2021-12-09] MEDS ORDERED: BUPRENORPHINE HCL 150 MCG FILM BC ONE (14:57)
[2021-12-09] MEDS ORDERED: BUPRENORPHINE HCL 75 MCG FILM BC ONE (14:58)
[2021-12-09] MEDS ORDERED: cloNIDine HCL 0.1 MG TABLET PO PRN (18:33)
[2021-12-09] MEDS: MELATONIN 5 MG TABLETS PO SCH (22:04)
[2021-12-09] MEDS: THIAMINE HCL 100 MG TABLET (FP) PO SCH (22:04)
[2021-12-10] MEDS ORDERED: BUPRENORPHINE HCL 150 MCG FILM BC ONE ×2 (04:20→16:42)
[2021-12-10] MEDS ORDERED: BUPRENORPHINE HCL 75 MCG FILM BC ONE ×2 (04:21→16:43)
[2021-12-10] MEDS: BUPRENORPHINE HCL 150 MCG, BUPRENORPHINE HCL 75 MCG BC SCH ×2 (05:35→17:40)
[2021-12-10] MEDS ORDERED: methaDONE HCL 10 MG TABLET (FOR DETOX USE ONLY) PO ONE (10:00)
[2021-12-10] MEDS: PRENATAL VITAMINS W/ FOLIC ACID TABLET (FP) PO SCH (10:15)
[2021-12-10] MEDS: NICOTINE 14 MG/24 HOURS TOPICAL PATCH TD SCH (10:16)
[2021-12-10] MEDS: NIFEdipine E.R. 90 MG TABLET PO SCH (10:16)
[2021-12-10] MEDS: LISINOPRIL 20 MG TABLET PO SCH ×2 (10:16→22:08)
[2021-12-10] MEDS: METHOCARBAMOL 500 MG TABLET PO PRN (10:16)
[2021-12-10] MEDS: ALBUTEROL SO4 HFA INHALER IH PRN (17:44)
[2021-12-10] MEDS: MELATONIN 5 MG TABLETS PO SCH (22:07)
[2021-12-10] MEDS: THIAMINE HCL 100 MG TABLET (FP) PO SCH (22:08)
[2021-12-11] MEDS: BUPRENORPHINE HCL 450 MCG FILM BC SCH ×2 (06:06→17:39)
[2021-12-11] MEDS: LISINOPRIL 20 MG TABLET PO SCH ×2 (10:44→22:02)
[2021-12-11] MEDS: METHOCARBAMOL 500 MG TABLET PO PRN (10:44)
[2021-12-11] MEDS: PRENATAL VITAMINS W/ FOLIC ACID TABLET (FP) PO SCH (10:44)
[2021-12-11] MEDS: NIFEdipine E.R. 90 MG TABLET PO SCH (10:44)
[2021-12-11] MEDS: NICOTINE 14 MG/24 HOURS TOPICAL PATCH TD SCH (10:45)
[2021-12-11] MEDS ORDERED: SUVOREXANT 10 MG TABLET PO PRN (22:00)
[2021-12-11] MEDS: THIAMINE HCL 100 MG TABLET (FP) PO SCH (22:02)
[2021-12-12] MEDS ORDERED: ONDANSETRON *ODT* 4 MG TABLET SL PRN (01:52)
[2021-12-12] MEDS ORDERED: BUPRENORPHINE/NALOXONE 4 MG/1 MG FILM PACKET SL SCH (06:00)
[2021-12-12] MEDS: NIFEdipine E.R. 90 MG TABLET PO SCH (09:42)
[2021-12-12] MEDS: LISINOPRIL 20 MG TABLET PO SCH (09:42)
[2021-12-12] MEDS: PRENATAL VITAMINS W/ FOLIC ACID TABLET (FP) PO SCH (09:42)
[2021-12-12] MEDS: NICOTINE 14 MG/24 HOURS TOPICAL PATCH TD SCH (10:05)
[2021-12-12 12:35] VITALS: BP 146/78; PULSE 74; TEMP 97.7
[2021-12-13] MEDS ORDERED: BUPRENORPHINE/NALOXONE 8 MG/2 MG FILM PACKET SL ONE (06:00)
== END 2021-12-12 12:10 | disposition other institution (70) | DRG 897 ==
LOC: YASAS 17:17 → Y6N 12-07 11:23
PROVIDERS: ADMIT Allergy & Immunology; ATTEND Allergy & Immunology
PROC: HZ2ZZZZ Detoxification Services for Substance Abuse Treatment (ICD-10-PCS; principal; 2021-12-07)
DX: F11.23 Opioid dependence with withdrawal (principal); F19.282 Other psychoactive substance dependence with psychoactive substance-induced sleep disorder; F17.210 Nicotine dependence, cigarettes, uncomplicated; F19.24 Other psychoactive substance dependence with psychoactive substance-induced mood disorder; G47.00 Insomnia, unspecified; I10 Essential (primary) hypertension; J43.9 Emphysema, unspecified; M17.11 Unilateral primary osteoarthritis, right knee; N40.0 Benign prostatic hyperplasia without lower urinary tract symptoms; Z99.89 Dependence on other enabling machines and devices; Z86.11 Personal history of tuberculosis
CPT/HCPCS: 36415; 71046-TC-FY; 80053; 85027; 86780; 87811; 93005; 93010; C9803; J0735; Q0162; U0003; U0005

== ENCOUNTER 2022-05-28 19:20 | Inpatient (IN) | payer OTHER ==
[2022-05-28 22:44] VITALS: BMI 22.2
[2022-05-28] MEDS ORDERED: MAGNESIUM CITRATE 300 ML BOTTLE PO PRN (22:57)
[2022-05-28] MEDS ORDERED: guaiFENesin 200 MG/10 ML 10 ML UNIT-DOSE CUPS PO PRN (22:57)
[2022-05-28] MEDS ORDERED: MAG HYDROX/AL HYDROX/SIMETH 30 ML UNIT-DOSE CUP PO PRN (22:57)
[2022-05-28] MEDS ORDERED: LOPERAMIDE HCL 2 MG CAPSULE PO PRN (22:57)
[2022-05-28] MEDS ORDERED: BISMUTH SUBSALICYLATE 524 MG/30 ML PO PRN (22:57)
[2022-05-28] MEDS ORDERED: DICYCLOMINE HCL 10 MG CAPSULE PO PRN (22:57)
[2022-05-28] MEDS ORDERED: NALOXONE HCL 0.4 MG/ML VIAL IM PRN (22:57)
[2022-05-28] MEDS ORDERED: IBUPROFEN 400 MG TABLET (FP) PO PRN (22:57)
[2022-05-28] MEDS ORDERED: hydrOXYzine PAMOATE 25 MG CAPSULE (FP) PO PRN (22:57)
[2022-05-28] MEDS ORDERED: NALOXONE HCL (KLOXXADO) 8 MG SPRAY NS PRN (22:57)
[2022-05-28] MEDS ORDERED: IBUPROFEN 600 MG TABLET (FP) PO PRN (22:57)
[2022-05-28] MEDS ORDERED: MAGNESIUM HYDROX 2400MG/30ML ORAL SUSPENSION 30 ML CUP PO PRN (22:57)
[2022-05-28] MEDS ORDERED: METHOCARBAMOL 500 MG TABLET PO PRN (22:57)
[2022-05-28] MEDS ORDERED: ONDANSETRON *ODT* 4 MG TABLET SL PRN (22:57)
[2022-05-28] MEDS ORDERED: ACETAMINOPHEN 325 MG TABLET (FP) PO PRN ×2 (22:57)
[2022-05-28] MEDS ORDERED: NICOTINE POLACRILEX 2 MG GUM BUC PRN (22:57)
[2022-05-28] MEDS ORDERED: P-EPHED 60MG/TRIPROLIDI 2.5MG TABLET PO PRN (22:57)
[2022-05-29 10:08] LABS: HEMATOCRIT 41.6 % (35.4-49); HEMOGLOBIN 14.3 GM/dL (11.7-16.9); MCH 34.2 pg (25.7-33.7); MCHC 34.4 g/dl (32.0-35.9); MEAN CELL VOLUME 99.4 fl (80-96); MEAN PLT VOLUME 8.1 fl (7.5-11.1); PLATELET COUNT 242 10^3/uL (134-434); RBC 4.19 M/mm3 (4.00-5.60); RDW 14.5 % (11.9-15.9); WHITE BLOOD COUNT 4.6 K/mm3 (4.0-10.0)
[2022-05-29 10:27] LABS: ALBUMIN 3.4 g/dl (3.4-5.0); BLOOD UREA NITROGEN 47.8 mg/dL (7-18)
[2022-05-29 10:29] LABS: CALCIUM 8.8 mg/dL (8.5-10.1)
[2022-05-29 10:30] LABS: CREATININE 2.4 mg/dL (0.55-1.3)
[2022-05-29 10:31] LABS: BILIRUBIN,TOTAL 0.7 mg/dL (0.2-1)
[2022-05-29 10:32] LABS: TOT PROT 7.2 g/dl (6.4-8.2)
[2022-05-29] MEDS: PRENATAL VITAMINS W/ FOLIC ACID TABLET (FP) PO SCH (12:20)
[2022-05-29] MEDS: NICOTINE 14 MG/24 HOURS TOPICAL PATCH TD SCH (12:22)
[2022-05-29] MEDS ORDERED: cloNIDine HCL 0.1 MG TABLET PO ONE (16:52)
[2022-05-29] MEDS ORDERED: BUPRENORPHINE HCL 150 MCG, BUPRENORPHINE HCL 75 MCG BC ONE (16:52)
[2022-05-29] MEDS ORDERED: BUPRENORPHINE HCL 150 MCG, BUPRENORPHINE HCL 75 MCG BC PRN (16:52)
[2022-05-29] MEDS: cloNIDine HCL 0.1 MG TABLET PO PRN (17:35)
[2022-05-29] MEDS: ASPIRIN 81 MG CHEWABLE TABLETS PO SCH (17:37)
[2022-05-29] MEDS ORDERED: SUVOREXANT 10 MG TABLET PO PRN (22:00)
[2022-05-29] MEDS ORDERED: MELATONIN 5 MG TABLETS PO SCH (22:00)
[2022-05-29] MEDS: THIAMINE HCL 100 MG TABLET (FP) PO SCH (22:34)
[2022-05-29] MEDS: diazePAM 5 MG TABLET PO PRN (22:36)
[2022-05-30] MEDS ORDERED: BUPRENORPHINE HCL 150 MCG, BUPRENORPHINE HCL 75 MCG BC PRN
[2022-05-30] MEDS: BUPRENORPHINE HCL 150 MCG, BUPRENORPHINE HCL 75 MCG BC SCH ×2 (05:30→18:17)
[2022-05-30] MEDS: ASPIRIN 81 MG CHEWABLE TABLETS PO SCH (10:37)
[2022-05-30] MEDS: NIFEdipine E.R. 90 MG TABLET PO SCH (10:37)
[2022-05-30] MEDS: diazePAM 5 MG TABLET PO PRN ×2 (10:37→22:50)
[2022-05-30] MEDS: PRENATAL VITAMINS W/ FOLIC ACID TABLET (FP) PO SCH (10:37)
[2022-05-30] MEDS: NICOTINE 14 MG/24 HOURS TOPICAL PATCH TD SCH (11:55)
[2022-05-30] MEDS: cloNIDine HCL 0.1 MG TABLET PO PRN (15:03)
[2022-05-30] MEDS: THIAMINE HCL 100 MG TABLET (FP) PO SCH (22:50)
[2022-05-31] MEDS: BUPRENORPHINE HCL 450 MCG FILM BC SCH ×2 (05:32→17:40)
[2022-05-31] MEDS: ALBUTEROL SO4 HFA INHALER IH PRN (05:34)
[2022-05-31] MEDS: PRENATAL VITAMINS W/ FOLIC ACID TABLET (FP) PO SCH (10:38)
[2022-05-31] MEDS: NIFEdipine E.R. 90 MG TABLET PO SCH (10:38)
[2022-05-31] MEDS: ASPIRIN 81 MG CHEWABLE TABLETS PO SCH (10:38)
[2022-05-31] MEDS: diazePAM 5 MG TABLET PO PRN (10:38)
[2022-05-31] MEDS: NICOTINE 14 MG/24 HOURS TOPICAL PATCH TD SCH (10:40)
[2022-05-31] MEDS: LISINOPRIL 20 MG TABLET PO SCH (11:00)
[2022-05-31] MEDS: THIAMINE HCL 100 MG TABLET (FP) PO SCH (23:17)
[2022-06-01] MEDS: BUPRENORPHINE/NALOXONE 4 MG/1 MG FILM PACKET SL SCH ×2 (05:59→18:16)
[2022-06-01] MEDS: NIFEdipine E.R. 90 MG TABLET PO SCH (10:38)
[2022-06-01] MEDS: LISINOPRIL 20 MG TABLET PO SCH (10:38)
[2022-06-01] MEDS: ASPIRIN 81 MG CHEWABLE TABLETS PO SCH (10:38)
[2022-06-01] MEDS: NICOTINE 14 MG/24 HOURS TOPICAL PATCH TD SCH (10:39)
[2022-06-01] MEDS: PRENATAL VITAMINS W/ FOLIC ACID TABLET (FP) PO SCH (10:39)
[2022-06-01 18:05] LABS: BLOOD UREA NITROGEN 20.5 mg/dL (7-18); CREATININE 1.4 mg/dL (0.55-1.3)
[2022-06-01 21:43] VITALS: RESP 18
[2022-06-01] MEDS: THIAMINE HCL 100 MG TABLET (FP) PO SCH (22:54)
[2022-06-02] MEDS: ALBUTEROL SO4 HFA INHALER IH PRN (05:50)
[2022-06-02] MEDS ORDERED: BUPRENORPHINE/NALOXONE 8 MG/2 MG FILM PACKET SL ONE (06:00)
[2022-06-02 09:30] VITALS: BP 150/85; PULSE 93; TEMP 97.1
[2022-06-02] MEDS: NICOTINE 14 MG/24 HOURS TOPICAL PATCH TD SCH (09:51)
[2022-06-02] MEDS: LISINOPRIL 20 MG TABLET PO SCH (09:51)
[2022-06-02] MEDS: ASPIRIN 81 MG CHEWABLE TABLETS PO SCH (09:51)
[2022-06-02] MEDS: NIFEdipine E.R. 90 MG TABLET PO SCH (09:51)
[2022-06-02] MEDS: PRENATAL VITAMINS W/ FOLIC ACID TABLET (FP) PO SCH (09:51)
== END 2022-06-02 09:15 | disposition home or self-care (01) | DRG 897 ==
LOC: YASAS 19:20 → Y6N 05-29 11:28
PROVIDERS: ADMIT Allergy & Immunology; ATTEND Surgery
PROC: HZ2ZZZZ Detoxification Services for Substance Abuse Treatment (ICD-10-PCS; principal; 2022-05-29)
DX: F11.23 Opioid dependence with withdrawal (principal); F19.282 Other psychoactive substance dependence with psychoactive substance-induced sleep disorder; F12.20 Cannabis dependence, uncomplicated; F17.210 Nicotine dependence, cigarettes, uncomplicated; I10 Essential (primary) hypertension; J43.9 Emphysema, unspecified; K59.03 Drug induced constipation; M17.11 Unilateral primary osteoarthritis, right knee; N40.0 Benign prostatic hyperplasia without lower urinary tract symptoms; H91.92 Unspecified hearing loss, left ear; R63.4 Abnormal weight loss; Z68.22 Body mass index [BMI] 22.0-22.9, adult; Z99.89 Dependence on other enabling machines and devices; Z86.11 Personal history of tuberculosis
CPT/HCPCS: 36415; 80053; 82565; 84520; 85027; 86780; 87811; C9803-CS; U0003; U0005

== ENCOUNTER 2022-07-18 15:05 | Inpatient (IN) | payer OTHER ==
[2022-07-18 17:27] VITALS: BMI 23.3
[2022-07-18] MEDS ORDERED: DICYCLOMINE HCL 10 MG CAPSULE PO PRN (21:37)
[2022-07-18] MEDS ORDERED: BENZOCAINE/MENTHOL (CHLORASEPTIC ) LOZENGE MM PRN (21:37)
[2022-07-18] MEDS ORDERED: guaiFENesin 200 MG/10 ML 10 ML UNIT-DOSE CUPS PO PRN (21:37)
[2022-07-18] MEDS ORDERED: P-EPHED 60MG/TRIPROLIDI 2.5MG TABLET PO PRN (21:37)
[2022-07-18] MEDS ORDERED: IBUPROFEN 400 MG TABLET (FP) PO PRN (21:37)
[2022-07-18] MEDS ORDERED: BUPRENORPHINE HCL 150 MCG, BUPRENORPHINE HCL 75 MCG BC ONE (21:37)
[2022-07-18] MEDS ORDERED: ACETAMINOPHEN 325 MG TABLET (FP) PO PRN ×2 (21:37)
[2022-07-18] MEDS ORDERED: BISMUTH SUBSALICYLATE 524 MG/30 ML PO PRN (21:37)
[2022-07-18] MEDS ORDERED: BUPRENORPHINE HCL 150 MCG, BUPRENORPHINE HCL 75 MCG BC PRN (21:37)
[2022-07-18] MEDS ORDERED: cloNIDine HCL 0.1 MG TABLET PO ONE (21:37)
[2022-07-18] MEDS ORDERED: NALOXONE HCL (KLOXXADO) 8 MG SPRAY NS PRN (21:37)
[2022-07-18] MEDS ORDERED: NICOTINE POLACRILEX 2 MG GUM BUC PRN (21:37)
[2022-07-18] MEDS ORDERED: MAGNESIUM HYDROX 2400MG/30ML ORAL SUSPENSION 30 ML CUP PO PRN (21:37)
[2022-07-18] MEDS ORDERED: MAGNESIUM CITRATE 300 ML BOTTLE PO PRN (21:37)
[2022-07-18] MEDS ORDERED: IBUPROFEN 600 MG TABLET (FP) PO PRN (21:37)
[2022-07-18] MEDS ORDERED: LOPERAMIDE HCL 2 MG CAPSULE PO PRN (21:37)
[2022-07-18] MEDS: THIAMINE HCL 100 MG TABLET (FP) PO SCH (23:16)
[2022-07-18] MEDS: MELATONIN 5 MG TABLETS PO SCH (23:16)
[2022-07-19] MEDS ORDERED: BUPRENORPHINE HCL 150 MCG, BUPRENORPHINE HCL 75 MCG BC PRN
[2022-07-19] MEDS: BUPRENORPHINE HCL 150 MCG, BUPRENORPHINE HCL 75 MCG BC SCH ×2 (06:49→18:17)
[2022-07-19] MEDS ORDERED: ALBUTEROL SO4 HFA INHALER IH PRN (08:49)
[2022-07-19] MEDS: ASPIRIN 81 MG CHEWABLE TABLETS PO SCH (09:07)
[2022-07-19] MEDS: diazePAM 5 MG TABLET PO PRN ×2 (09:07→18:20)
[2022-07-19] MEDS: NIFEdipine E.R. 90 MG TABLET PO SCH (09:07)
[2022-07-19] MEDS: NICOTINE 14 MG/24 HOURS TOPICAL PATCH TD SCH (09:07)
[2022-07-19] MEDS: cloNIDine HCL 0.1 MG TABLET PO PRN ×3 (09:07→22:49)
[2022-07-19] MEDS: PRENATAL VITAMINS W/ FOLIC ACID TABLET (FP) PO SCH (09:08)
[2022-07-19 12:27] LABS: HEMATOCRIT 38.3 % (35.4-49); HEMOGLOBIN 12.7 GM/dL (11.7-16.9); MCHC 33.2 g/dl (32.0-35.9); MEAN CELL VOLUME 99.5 fl (80-96); MEAN PLT VOLUME 8.7 fl (7.5-11.1); PLATELET COUNT 281 10^3/uL (134-434); RBC 3.84 M/mm3 (4.00-5.60); RDW 12.9 % (11.9-15.9); WHITE BLOOD COUNT 3.4 K/mm3 (4.0-10.0)
[2022-07-19 12:42] LABS: CALCIUM 8.8 mg/dL (8.5-10.1)
[2022-07-19 12:43] LABS: BLOOD UREA NITROGEN 33.7 mg/dL (7-18)
[2022-07-19 12:48] LABS: CREATININE 1.3 mg/dL (0.55-1.3); TOT PROT 6.6 g/dl (6.4-8.2)
[2022-07-19 12:50] LABS: BILIRUBIN,TOTAL 0.4 mg/dL (0.2-1)
[2022-07-19] MEDS: ONDANSETRON *ODT* 4 MG TABLET SL PRN (17:24)
[2022-07-19] MEDS: MELATONIN 5 MG TABLETS PO SCH (22:48)
[2022-07-19] MEDS: THIAMINE HCL 100 MG TABLET (FP) PO SCH (22:48)
[2022-07-20] MEDS: ONDANSETRON *ODT* 4 MG TABLET SL PRN (04:24)
[2022-07-20] MEDS: cloNIDine HCL 0.1 MG TABLET PO PRN ×3 (04:55→23:25)
[2022-07-20] MEDS: MAG HYDROX/AL HYDROX/SIMETH 30 ML UNIT-DOSE CUP PO PRN ×2 (04:55→15:51)
[2022-07-20] MEDS: BUPRENORPHINE HCL 450 MCG FILM BC SCH ×2 (05:44→19:19)
[2022-07-20] MEDS: NIFEdipine E.R. 90 MG TABLET PO SCH (10:59)
[2022-07-20] MEDS: NICOTINE 14 MG/24 HOURS TOPICAL PATCH TD SCH (10:59)
[2022-07-20] MEDS: ASPIRIN 81 MG CHEWABLE TABLETS PO SCH (10:59)
[2022-07-20] MEDS: TIOTROPIUM BROMIDE 2.5 MCG (SPIRIVA) RESPIMAT INHALER IH SCH ×2 (10:59→18:56)
[2022-07-20] MEDS: PRENATAL VITAMINS W/ FOLIC ACID TABLET (FP) PO SCH (10:59)
[2022-07-20] MEDS ORDERED: BUPRENORPHINE/NALOXONE 2 MG/0.5 MG FILM PACKET SL ONE (22:06)
[2022-07-20] MEDS ORDERED: NICOTINE 7 MG/24 HOURS TOPICAL PATCH TD PRN (22:07)
[2022-07-20] MEDS: THIAMINE HCL 100 MG TABLET (FP) PO SCH (22:53)
[2022-07-20] MEDS: MELATONIN 5 MG TABLETS PO SCH (22:53)
[2022-07-20 23:21] VITALS: RESP 18
[2022-07-21] MEDS ORDERED: BUPRENORPHINE/NALOXONE 4 MG/1 MG FILM PACKET SL SCH (06:00)
[2022-07-21] MEDS: NIFEdipine E.R. 90 MG TABLET PO SCH (10:39)
[2022-07-21] MEDS: PRENATAL VITAMINS W/ FOLIC ACID TABLET (FP) PO SCH (10:39)
[2022-07-21] MEDS: ASPIRIN 81 MG CHEWABLE TABLETS PO SCH (10:39)
[2022-07-21] MEDS: TIOTROPIUM BROMIDE 2.5 MCG (SPIRIVA) RESPIMAT INHALER IH SCH (10:40)
[2022-07-21 12:55] VITALS: BP 162/92; PULSE 74; TEMP 97.5
[2022-07-21 18:12] LABS: CREATININE 1.3 mg/dL (0.55-1.3)
[2022-07-22] MEDS ORDERED: BUPRENORPHINE/NALOXONE 8 MG/2 MG FILM PACKET SL ONE (06:00)
== END 2022-07-21 13:03 | disposition left against medical advice (07) | DRG 894 ==
LOC: YASAS 15:05 → Y3N 20:23
PROVIDERS: ADMIT Allergy & Immunology; ATTEND Surgery
PROC: HZ2ZZZZ Detoxification Services for Substance Abuse Treatment (ICD-10-PCS; principal; 2022-07-18)
DX: F11.23 Opioid dependence with withdrawal (principal); F12.20 Cannabis dependence, uncomplicated; I10 Essential (primary) hypertension; J44.9 Chronic obstructive pulmonary disease, unspecified; M17.11 Unilateral primary osteoarthritis, right knee; N18.9 Chronic kidney disease, unspecified; N40.0 Benign prostatic hyperplasia without lower urinary tract symptoms; R76.11 Nonspecific reaction to tuberculin skin test without active tuberculosis; Z86.11 Personal history of tuberculosis; Z99.89 Dependence on other enabling machines and devices
CPT/HCPCS: 36415; 80053; 82565; 84520; 85027; 86780; 87811; 93005; 93010; C9803-CS; Q0162; U0003; U0005